=== PATIENT | female | born 1980 | race Caucasian/White ===

== ENCOUNTER → 2019-04-10 15:35 | Outpatient (REF) | payer OTHER, SELFPAY | LOC: ANHLAB 15:35 | PROVIDERS: PCP Family Medicine; Visit Provider Nurse Practitioner | DX: L81.4 Other melanin hyperpigmentation (principal) | CPT/HCPCS: 88305 ==

== ENCOUNTER 2020-12-10 13:14 | Outpatient (CLI) | payer OTHER, SELFPAY ==
--- NOTE | ~2020-12-10 | MMUS_ITS ---
EXAMINATION: MM diagnostic hazel BI w nika, US breast BI complete HISTORY: Bilateral breast pain TECHNIQUE: ML, MLO and craniocaudal 3-D tomosynthesis images of both breasts were performed and synth etic 2-D images were generated. CAD analysis was submitted and interpreted. High resolution bilateral complete breast ultrasound including all 4 quadrants and subareolar areas was performed. COMPARISON: None BREAST PARENCHYMAL COMPOSITION: There are scattered areas of fibroglandular density. FINDINGS: MAMMOGRAPHIC FINDINGS: No suspicious mass or architectural distortion, malignant calcification, skin thickening or retractio n is detected. ULTRASOUND: No suspicious mass or shadowing or other significant sonographic abnormality in either breast is dete cted. IMPRESSION: 1. No mammographic evidence of malignancy 2. Routine mammographic screening is recommended BI-RADS Category 1: Negative Reviewed, dictated and finalized at location A. IMPRESSION: 1. No mammographic evidence of malignancy 2. Routine mammographic screening is recommended BI-RADS Category 1: Negative
== END 2020-12-10 13:15 | disposition home or self-care (01) ==
PROVIDERS: PCP Family Medicine; Visit Provider Physician Assistant
DX: N64.4 Mastodynia (principal)
CPT/HCPCS: 76641; 77062; 77066; G0279

== ENCOUNTER 2022-06-10 08:12 | Outpatient (CLI) | payer OTHER, SELFPAY ==
--- NOTE | ~2022-06-10 | MM_ITS ---
EXAMINATION: MM screening hazel BI w nika HISTORY: Screening mammogram TECHNIQUE: Craniocaudal and mediolateral oblique 3-D tomosynthesis images were obtained and synthetic 2-D images were generated. CAD analysis was submitted and interpreted. COMPARISON: 12/10/2020 bilateral diagnostic mammography and bilateral complete breast ultrasound exam ination BREAST PARENCHYMAL COMPOSITION: There are scattered areas of fibroglandular density. FINDINGS: There is no evidence of suspicious mass, calcification, or architectural distortion to sugg est malignancy in either breast. There has been no suspicious interval change. IMPRESSION: 1. No mammographic evidence of malignancy. 2. Recommend routine screening mammography in one year. BI-RADS Category 1: Negative Reviewed, dictated and finalized at location A.
== END 2022-06-10 08:13 | disposition home or self-care (01) ==
PROVIDERS: PCP Physician Assistant; Visit Provider Student in an Organized Health Care Education/Training Program
DX: Z12.31 Encounter for screening mammogram for malignant neoplasm of breast (principal)
CPT/HCPCS: 77063; 77067

== ENCOUNTER 2022-08-05 08:57 | Outpatient (CLI) | payer OTHER, SELFPAY | END 2022-08-05 08:58 | disposition home or self-care (01) | LOC: ANHAUDIO 08:58 | PROVIDERS: PCP Physician Assistant; Visit Provider Otolaryngology | DX: H90.3 Sensorineural hearing loss, bilateral (principal) | CPT/HCPCS: 92557; 92567 ==

== ENCOUNTER 2023-02-01 12:47 | Outpatient (CLI) | payer OTHER, SELFPAY ==
--- NOTE | ~2023-02-01 | CT_ITS ---
EXAMINATION: CT sinus wo con DATE: 02/01/2023 13:01 INDICATION: Chronic sinusitis TECHNIQUE: Computed tomography (CT) of the paranasal sinuses was performed without intravenous contra st. The dose-length product was 397.93 mGy-cm. Automated exposure control and iterative reconstructio n technique were employed. COMPARISON: None FINDINGS: There is moderate mucosal thickening of the right maxillary sinus. There is mild mucosal th ickening of the left maxillary sinus. No air-fluid levels. No significant mucoperiosteal reaction. Th ere is occlusion of the right ostiomeatal unit. Left ostiomeatal unit is patent. Leftward nasal septa l deviation. Mastoids are pneumatized. IMPRESSION: 1. Moderate maxillary sinusitis, likely chronic. Reviewed, dictated and finalized at location A. FEEDER
== END 2023-02-01 12:48 ==
PROVIDERS: PCP Physician Assistant; Visit Provider Otolaryngology
DX: J01.00 Acute maxillary sinusitis, unspecified (principal)
CPT/HCPCS: 70486

== ENCOUNTER 2023-04-06 00:29 | Day surgery (SDC) | payer OTHER, SELFPAY ==
[2023-03-26 14:25] VITALS: BMI 28.6
--- NOTE | 2023-03-26 14:29 | PC.NURSE ---
Report to the Outpatient Waiting Room, entrance under the green pavilion located off [facility], at time 1100 on date 04/06/23. Planned Procedure Time: 1300. Time changes happen often and if your time is changed the preop area will call you the afternoon before. - You and your visitor will be asked to self-screen and do not enter if you have any COVID symptoms. - A mask is optional within the hospital at this time. Patients may have clear liquids (water, carbonated beverages, clear teas, apple juice) until 3 hours prior to surgery with a maximum of 20 ounces. - No food from midnight until time of surgery Take the following medications with a SIP of water the morning of surgery: BUPROPION, VRAYLAR, CLONAZEPAM, VALACYCLOVIR DO NOT STOP ANY OF YOUR OTHER PRESCRIPTION MEDICATIONS PRIOR TO SURGERY ?EXCEPT THE FOLLOWING Medications to discontinue per physician: N/A Date to take last dose: N/A Please no make-up, nail azeri, hairspray, perfume, deodorant, or body powder the day of surgery. No jewelry (including any body piercings) or valuables the day of surgery, leave them at home. Please take a shower or bath the night before, or the morning of, surgery with an antibacterial soap. Wear comfortable, loose fitting clothing. - Jewelry must be removed prior to entering the operating room. Rings and piercings that are not removed may be cut off. - The hospital will not accept responsibility for valuables. - Please leave all valuables, including medications, at home the day of surgery. If you are going home after surgery, a licensed local company hazmat driver must drive you home. - NO public transportation without another adult if you receive anesthesia. - We recommend that an adult stay with you for 24 hours following discharge. - We also recommend that you do not drive, make important decision, drink alcoholic beverages, or take any drugs that were not prescribed by your health care provider for at least 24 hours after your discharge time. Follow any additional instructions given to you from your surgeon. If you or anyone in your household have experienced Covid symptoms in the past week, please notify your surgeon or the nurse liaison at the phone number below for possible testing. Telephone instructions given to PT - DAVID WELLS and asked if any additional questions and then verbalized understanding. Patient advised to call surgeon office or pre surgery nurse liaison [phone] if any additional questions.
--- NOTE | 2023-04-04 16:07 | PM.IMHP ---
H&P: HPI History of Present Illness Date/Time: 04/04/23 16:07 Chief Complaint: Chronic sinusitis nasal obstruction nasal congestion septal deviation turbinate hypertrophy Narrative: planned procedure Review of Systems Review of Systems: All systems reviewed & are unremarkable except as noted in HPI and below PMFSH Past Medical History Medical History Anxiety (11/22/17) Depression Screening for breast cancer Surgical History Surgical History H/O LEEP (02/16/00) History of rhinoplasty 2006 Family History Family History Grandparent Diabetes mellitus Hypertension Carcinoma of colon Family history of coronary artery disease Dementia paternal grandfather Mother Family history of hypercholesterolemia Social History Social History (Updated 01/27/23 @ 13:03 by Kristal Harris CMA) Smoking status: Never smoker Second hand tobacco smoke exposure: No Alcohol intake: never Substance use: never Substance use type: does not use Lack of Transportation: No Lack of Food: Never True Current Housing: I Have Housing Concerned About Future Housing: No Difficulty Paying Gas/Electric Bills: No Difficulty Paying for Meds: No Currently Unemployed: No Education: High School Diploma/GED Difficulty w/ Childcare or Family Care: No Living arrangements: with family Additional living arrangements comments: and children Occupation/Education: occupation Gender identity (if verbalized by the patient): Female Sexual Orientation (if Verbalized by the Patient): Straight or Heterosexual Spiritual care concerns: No Meds Home Medications and Allergies Home Medications Medication Instructions Recorded Confirmed Type clonazepam 0.5 mg tablet 0.5 mg PO TID #90 tabs 06/01/19 03/26/23 Rx valacyclovir 500 mg tablet 500 mg PO DAILY #90 tabs 02/03/21 03/26/23 Rx bupropion HCl 150 mg 24 hr tablet, 300 mg PO QAM 06/04/22 03/26/23 History extended release loratadine 10 mg tablet (Claritin) 10 mg PO DAILY 01/27/23 03/26/23 History cariprazine 1.5 mg capsule 1.5 mg PO DAILY 03/26/23 03/26/23 History (Vraylar) Allergies Allergy/AdvReac Type Severity Reaction Status Date / Time cefaclor Allergy Unknown Unknown Verified 03/26/23 14:22 sulfamethizole Allergy Unknown Skin Verified 03/26/23 14:22 irritation trimethoprim Allergy Unknown Skin Verified 03/26/23 14:22 irritation Exam Narrative: septal deviation turbinate hypertrophy chronic appearing sinuses Assessment and Plan Assessment and plan (1) Facial pain: Code(s): R51.9 - Headache, unspecified Status: Acute Assessment and Plan: plan or image guided endoscopic bilateral maxillary antrostomies endoscopic assisted septoplasty inferior turbinate reduction bilaterally with outfracture. Risks discussed including bleeding infection need for routine follow-up need for time off work time off school inherent risk of narcotic use change in vision CSF leak brain brain damage total blindness blindness. Damage to any structure of the clavicle by myself damage to any structure during the induction and maintenance of anesthesia. (2) Chronic sinusitis: Code(s): J32.9 - Chronic sinusitis, unspecified Status: Acute (3) Nasal septal deviation: Code(s): J34.2 - Deviated nasal septum Status: Acute (4) Hypertrophy of both inferior nasal turbinates: Code(s): J34.3 - Hypertrophy of nasal turbinates Status: Acute
[2023-04-06] VITALS (8 sets, daily range): BP systolic 112–147; BP diastolic 62–87; PULSE 79–90; RESP 14–20; TEMP 36.3–36.7; O2SAT 98–100
--- NOTE | 2023-04-06 07:19 | WPDHPUPDATE1 ---
History and Physical Update Update Date/Time: 04/06/23 07:19 History and Physical has been reviewed, including an updated exam of the patient. There are NO changes in the patient's condition. Risks, benefits, and alternatives have been discussed and questions answered. Patient agrees to proceed with procedure.
[2023-04-06] MEDS: ACETAMINOPHEN 500 MG TABLET 1000 MG PO (11:23)
[2023-04-06] MEDS: LACTATED RINGERS 1,000 ML 30 ML IV CONT ×2 (11:25→17:17)
--- NOTE | 2023-04-06 13:19 | WPDANESEPPF ---
Anes - Initial Pre Proc Eval Procedure: Operation Date: 04/06/23 13:00 Proposed Procedures p Image Guided Bilateral Maxillary Antrostomy, Bilateral Inferior Turbinate Reduction with Outfracture - Mathieu Torres MD s Endoscopic Septoplasty - Mathieu Torres MD Date/Time: 04/06/23 13:19 Surgeon: Mathieu Torres MD Pre Op Diagnosis: Chr Sinusitis, Septal Deviation Patient Data Age: 43 Gender: F Height: 1.65 m Weight: 85 kg Last Vital Signs Temp 36.7 C 04/06/23 11:09 Pulse 79 04/06/23 11:09 Resp 18 04/06/23 11:09 BP 142/84 H 04/06/23 11:09 Pulse Ox 100 04/06/23 11:09 O2 Del Method Room Air 04/06/23 11:09 Allergies Allergy/AdvReac Type Severity Reaction Status Date / Time cefaclor Allergy Unknown Unknown Verified 04/06/23 11:33 sulfamethizole Allergy Unknown Skin Verified 04/06/23 11:33 irritation trimethoprim Allergy Unknown Skin Verified 04/06/23 11:33 irritation Home Medications Medication Instructions Recorded Confirmed Type clonazepam 0.5 mg tablet 0.5 mg PO TID #90 tabs 06/01/19 04/06/23 Rx valacyclovir 500 mg tablet 500 mg PO DAILY #90 tabs 02/03/21 04/06/23 Rx bupropion HCl 150 mg 24 hr tablet, 300 mg PO QAM 06/04/22 04/06/23 History extended release loratadine 10 mg tablet (Claritin) 10 mg PO DAILY 01/27/23 04/06/23 History cariprazine 1.5 mg capsule 1.5 mg PO DAILY 03/26/23 04/06/23 History (Vraylar) Patient hx anesthesia problems: none Family hx anesthesia problems: none Results Review: All pre-operative results and documents have been reviewed as part of the pre-operative evaluation. [facility] Past Medical History Medical History Anxiety (11/22/17) Depression Screening for breast cancer Surgical History Surgical History H/O LEEP (02/16/00) History of rhinoplasty 2007 Family History Family History Grandparent Diabetes mellitus Hypertension Carcinoma of colon Family history of coronary artery disease Dementia paternal grandfather Mother Family history of hypercholesterolemia Social History Social History Smoking status: Never smoker Second hand tobacco smoke exposure: No Alcohol intake: never Substance use: never Substance use type: does not use Lack of Transportation: No Lack of Food: Never True Current Housing: I Have Housing Concerned About Future Housing: No Difficulty Paying Gas/Electric Bills: No Difficulty Paying for Meds: No Currently Unemployed: No Education: High School Diploma/GED Difficulty w/ Childcare or Family Care: No Living arrangements: with family Additional living arrangements comments: and children Occupation/Education: occupation Gender identity (if verbalized by the patient): Female Sexual Orientation (if Verbalized by the Patient): Straight or Heterosexual Spiritual care concerns: No Anes - Eval Final PreProcedure Day of Procedure 04/06/23 13:19 Patient weight: obese Heart: regular rate and rhythm Lungs: clear to auscultation Airway: Mallampati scale class II Neurological: alert and oriented Last oral intake: >/= 8 hours ASA classification: II Emergent: no Anesthetic plan: proceed Anesthesia type and monitoring: general ETT and standard monitoring Results Review: All pre-operative results and documents have been reviewed as part of the pre-operative evaluation. Informed Consent: The patient's anesthetic plan and its attendant risks and benefits were discussed with the patient/family/POA. Questions were solicited and answers provided to the satisfaction of the patient/family/POA.
[2023-04-06] MEDS: CLINDAMYCIN 900 MG/D5W 50 ML 900 MG/50 ML PIGGYBACK 50 MG IVPB (14:28)
[2023-04-06] MEDS: LIDO 1%/EPINEPHRINE 1:100,000 20 ML VIAL 50 ML INFILTRATE (14:43)
[2023-04-06] MEDS: OXYMETAZOLINE HCL 0.05% NAS 15 ML BTL (*BKC) 1 SPRAY NASAL (14:43)
[2023-04-06] MEDS: MUPIROCIN 2% OINT 22 GM TUBE 1 APPLIC EACH NARE (14:44)
[2023-04-06] MEDS: HEMOSTATIC MATRIX (SURGIFLO with THROMBIN) KIT 1 KIT XX (16:12)
--- NOTE | 2023-04-06 17:35 | P.OP_ITS ---
Procedure Note - Detailed Date of Procedure 04/06/23 Pre-op Diagnosis Chr Sinusitis, Septal Deviation, turbinate hypertrophy, nasal obstruction Post-op Diagnosis Same Procedure Performed endoscopic assisted septoplasty inferior turbinate reduction with outfracture bilateral image guided maxillary antrostomies Surgeon Mathieu Torres MD Anesthesia General Indications see above Findings polypoid edema right max left looked okay a no T-cells really hard to get to a previous history of septoplasty challenging to redo the portion I needed to do but it looked good afterwards. Hypertrophied turbinates well reduced Description of Procedure patient identified consent verified preop. Patient brought to the operating. Time-out performed. General anesthesia induced endotracheal tube secured. Patient prepped draped position procedure confirmed 2nd time-out performed. Image guidance initiated confirmed. Afrin-soaked pledgets placed fronts then removed. Total 12 cc 1% lidocaine 1 100 parts epinephrine injected in the bilateral nasal septum inferior turbinates. [place] incision made left-sided nasal septal flap elevated was challenging given previous history of septoplasty right side elevated deviated septum removed with [place] forceps Henry forceps osteotome. I removed portions superiorly which was blocking the left middle meatus as well as the inferior portion blocking the left nasal passage. The incision closed 3 interrupted sorry for ruptured 5 0 fast gut sutures. Turbinates reduced submucosal plane with Workpop debrider 2.5 mm blade FloSeal placed anteriorly then outfractured. Maxillary antrostomies were performed with image guidance straight through cut double ball tip probe backbiter microdebrider as well as rad 40 and 70 degree endoscope to get the NO T cells opened. Great care was taken to not injure the orbit as well as to ensure that the natural os connected to the surgical os. Welch splints were then placed sutured anteriorly using a 3-0 mattress nylon suture ensured to be lateral to the middle turbinates. Total blood loss 35 cc I performed all dictated portions procedure no complications care the patient back to Anesthesiology. Patient taken to PACU. Estimated Blood Loss 35 Drains No Packing No Pathology None sent Complications No immediate complications Condition Stable Disposition PACU [facility] Billing Surgery - Charge Forward: Surgery Billing
--- NOTE | 2023-04-06 17:41 | SUR.PHASEI ---
1740: Simple mask removed.
[2023-04-06] MEDS: oxyCODONE HCL (*CRX) 5 MG TAB IR PO (18:12)
== END 2023-04-06 18:47 | disposition home or self-care (01) ==
PROVIDERS: PCP Physician Assistant; Visit Provider Otolaryngology
PROC: (CPT 31256; principal; 2023-04-06 13:00)
PROC: (CPT 30520; 2023-04-06 13:00)
DX: J32.9 Chronic sinusitis, unspecified (principal); J34.3 Hypertrophy of nasal turbinates; J34.2 Deviated nasal septum; J34.89 Other specified disorders of nose and nasal sinuses; F41.9 Anxiety disorder, unspecified; F32.A Depression, unspecified; E66.9 Obesity, unspecified; Z68.31 Body mass index [BMI] 31.0-31.9, adult
CPT/HCPCS: 31256; 61782; 30520; 30140; A9270; J2250; J3010; J7050; J7120

== ENCOUNTER 2023-08-04 12:45 | Outpatient (CLI) | payer BC, SELFPAY ==
--- NOTE | ~2023-08-04 | MM_ITS ---
EXAMINATION: MM screening hazel BI w nika HISTORY: Screening TECHNIQUE: Craniocaudal and mediolateral oblique 3-D tomosynthesis images were obtained and synthetic 2-D images were generated. CAD analysis was submitted and interpreted. COMPARISON: Comparison to multiple prior studies sequentially, with oldest reviewed study dated 11/16. BREAST PARENCHYMAL COMPOSITION: Not dense: There are scattered areas of fibroglandular density. FINDINGS: There is no evidence of suspicious mass, calcification, or architectural distortion to sugg est malignancy in either breast. There has been no suspicious interval change. IMPRESSION: 1. No mammographic evidence of malignancy. 2. Recommend routine screening mammography in one year. BI-RADS Category 1: Negative Reviewed, dictated and finalized at location B.
== END 2023-08-04 12:46 | disposition home or self-care (01) ==
LOC: ANHIMG 12:46
PROVIDERS: PCP Physician Assistant; Visit Provider Student in an Organized Health Care Education/Training Program
DX: Z12.31 Encounter for screening mammogram for malignant neoplasm of breast (principal)
CPT/HCPCS: 77063; 77067

== ENCOUNTER 2024-05-11 13:42 | Outpatient (CLI) | payer BC, SELFPAY ==
--- NOTE | ~2024-05-11 | MR_ITS ---
EXAMINATION: MR pituitary wo/w con DATE: 05/11/2024 14:30 INDICATION: Hyperprolactinemia. TECHNIQUE: Magnetic resonance imaging (MRI) of the brain and brainstem was performed without and with 13 mL ProHance intravenous contrast. COMPARISON: None. FINDINGS: The pituitary is normal in size with height of 4 mm. There is no intracranial hemorrhage, a cute infarction, or abnormal intracranial mass lesion. The ventricles are normal in size. There is mu cosal thickening in the paranasal sinuses. The orbits are normal. There is a trace left mastoid effus ion. IMPRESSION: 1. Normal brain. Normal pituitary. Reviewed, dictated and finalized at location A.
== END 2024-05-11 13:43 | disposition home or self-care (01) ==
PROVIDERS: PCP Physician Assistant; Visit Provider Physician Assistant
DX: R89.1 Abnormal level of hormones in specimens from other organs, systems and tissues (principal)
CPT/HCPCS: 70553; A9579

== ENCOUNTER 2024-06-02 11:21 | Outpatient (CLI) | payer BC, SELFPAY ==
--- OUTSIDE RECORDS SUMMARY | 2024-06-02 11:32 | XMS_ITS | Clinical Summary ---
Author Organization [facility] Address [address] [address] [place] [id number] Phone Care Team Providers Care Advance Scout Name Role Phone Unavailable Primary Care Provider Unavailabl e Medications valACYclovir (VALTREX) 500 mg tablet TAKE ONE TABLET BY MOUTH ONCE DAILY FOR SUPPRESSION. CAN TAKE UP TO 4 TABLETS DURING ACUTE EXACERBATION 90 Tablet 3 3 11:11 AM CDT 12/20/19 22 Active methylPREDNIS olone (MEDROL DOSPACK) 4 mg Tablets, Dose Pack TAKE BY MOUTH DIRECTED ON PACKAGE. TAKE WITH PEPCID. 21 Each 3 3 10:17 AM CDT 02/05/20 22 Active semaglutide, weight loss, (Wegovy) 0.25 mg/0.5 mL Pen Injector Inject 0.25 mg every week by subcutaneous route as directed. 2 mL 03/04/19 23 Active phentermine (ADIPEX P) 37.5 mg tablet Take 1 Tablet (37.5 mg) by mouth daily. 30 Tablet 1 3 12:56 PM CDT 05/22/19 23 Active tretinoin (RETIN-A) 0.1 % Cream APPLY TO FACE AT BEDTIME. 45 Gram 3 3 12:56 PM CDT 06/09/19 23 Active mupirocin (BACTROBAN) 2% Ointment APPLY TOPICALLY TWICE DAILY DIRECTED 22 Gram 3 10:52 AM CDT 07/07/19 23 Active buPROPion HCL (WELLBUTRIN XL) 300 mg Extended Release 24 hour tablet TAKE ONE TABLET BY MOUTH ONCE DAILY 90 Tablet 3 4 11:44 AM CDT 07/10/19 23 Active azithromycin (Zithromax Z-Willy) 250 mg tablet TAKE 2 TABLETS (500 MG) BY MOUTH ON DAY 1, THEN 1 TABLET (250 MG) BY MOUTH ONCE DAILY ON DAYS 2-5 6 Tablet 3 3:07 PM CDT 07/17/19 23 Active benzonatate (TESSALON) 200 mg capsule Take 1 Capsule (200 mg) by mouth 3 times daily. 21 Capsule 3 3:22 PM CDT 10/21/19 23 Active codeine-guaiF ENesin (ROBITUSSIN-A C) 10-100 mg/5 mL Liquid TAKE 10 ML BY MOUTH AT BEDTIME NEEDED. 70 mL 3 3:22 PM CDT 10/21/19 23 Active codeine-guaiF ENesin (guaiFENesin AC) 10-100 mg/5 mL Liquid Take 10 mL by mouth every 6 hours as needed FOR COUGH. 120 mL 3 12:40 PM CDT 12/06/19 23 Active albuterol sulfate HFA 90 mcg/actuation aerosol inhaler Inhale 2 puffs BY MOUTH Every 4 hours as needed 8.5 Gram 3 12:40 PM CDT 12/06/19 23 Active benzonatate (Tessalon Perles) 100 mg capsule Take 1 Capsule (100 mg) by mouth every 8 hours as needed. 30 Capsule 3 12:40 PM CDT 12/06/19 23 Active methylPREDNIS olone (Medrol, Willy,) 4 mg Tablets, Dose Pack TAKE DIRECTED 21 Tablet 3 11:50 AM WELL TESTING OPERATOR 01/06/20 23 Active fluconazole (DIFLUCAN) 150 mg tablet TAKE ONE TABLET BY MOUTH A SINGLE DOSE THEN REPEAT IN 72 HOURS. 2 Tablet 3 12:38 PM WELL TESTING OPERATOR 01/09/20 23 Active azelastine (ASTELIN) 137 mcg/actuation nasal spray Administer 1-2 Sprays in each nostril every 12 hours. 30 mL 3 6:41 PM WELL TESTING OPERATOR 01/28/20 23 Active clonazePAM (KlonoPIN) 0.5 mg Tablet Take 1 Tablet (0.5 mg) by mouth 3 times daily as needed. 90 Tablet 1 4 12:45 PM WELL TESTING OPERATOR 02/02/20 23 Active predniSONE (DELTASONE) 5 mg tablet Take 1 Tablet (5 mg) by mouth daily in the morning. 7 Tablet 4 7:48 PM WELL TESTING OPERATOR 04/06/19 24 Active benzonatate (TESSALON) 100 mg capsule Take 1 Capsule (100 mg) by mouth 3 times daily. 10 Capsule 4 11:29 AM WELL TESTING OPERATOR 04/08/19 24 Active phentermine (ADIPEX P) 37.5 mg tablet Take 1 Tablet (37.5 mg) by mouth daily in the morning. 30 Tablet 1 4 12:32 PM CDT 04/14/19 24 Active tirzepatide, weight loss, (Zepbound) 5 mg/0.5 mL Pen Injector Inject 5 mg by subcutaneous injection every 7 days. 2 mL 2 5 12:03 PM WELL TESTING OPERATOR 08/20/19 24 Active clonazePAM (KlonoPIN) 0.5 mg Tablet Take 1 Tablet (0.5 mg) by mouth 3 times daily as needed. 90 Tablet 3 4 3:23 PM WELL TESTING OPERATOR 09/24/19 24 Active tirzepatide, weight loss, (Zepbound) 7.5 mg/0.5 mL Pen Injector Inject 7.5 mg every week by subcutaneous route as directed. 2 mL 1 4 11:14 AM WELL TESTING OPERATOR 11/25/19 24 Active ofloxacin (OCUFLOX) 0.3 % solution INSTILL 1 DROP INTO AFFECTED EYE(S) BY OPHTHALMIC ROUTE 4 TIMES PER DAY x 5-7 days 10 mL 4 11:50 AM WELL TESTING OPERATOR 01/27/20 24 Active clonazePAM (KlonoPIN) 0.5 mg Tablet Take 1 Tablet (0.5 mg) by mouth 3 times daily as needed. 90 Tablet 3 5 1:20 PM CDT 02/27/19 25 Active valACYclovir (VALTREX) 500 mg tablet Take 1-2 Tablets (500-1,000 mg) by mouth 2 times daily as needed as directed. 90 Tablet 2 5 12:03 PM WELL TESTING OPERATOR 02/27/19 25 Active buPROPion HCL (WELLBUTRIN XL) 300 mg Extended Release 24 hour tablet Take 1 Tablet (300 mg) by mouth daily. 90 Tablet 3 5 1:20 PM CDT 03/13/20 25 Active tretinoin (RETIN-A) 0.1 % Cream Apply a small amount to affected area every night 45 Gram 7 05/16/19 25 Active tirzepatide, weight loss, (Zepbound) 10 mg/0.5 mL Pen Injector Inject 10 mg by subcutaneous injection every 7 days. 2 mL 5 10:33 AM CDT 05/17/19 25 Active cariprazine (Vraylar) 1.5 mg Capsule capsule Take 1 Capsule (1.5 mg) by mouth daily. 30 Capsule 5 06/03/19 25 Active cariprazine (Vraylar) 1.5 mg Capsule capsule Take 1 Capsule (1.5 mg) by mouth daily. 30 Capsule 5 5 1:20 PM CDT 11/14/19 24 025 Discontinued(R eorder) tirzepatide, weight loss, (Zepbound) 5 mg/0.5 mL Pen Injector INJECT 0.5 ML EVERY WEEK UNDER THE SKIN DIRECTED 2 mL 1 4 11:50 AM WELL TESTING OPERATOR 01/26/20 24 025 Discontinued tirzepatide, weight loss, (Zepbound) 10 mg/0.5 mL Pen Injector Inject 10 mg by subcutaneous injection every 7 days. 2 mL 1 5 1:20 PM CDT 03/30/19 25 025 Discontinued(R eorder) Encounters Date Type Department Care Team Description 05/16/2024 External Device Data [facility]STRACTION Provider, Abstract 05/16/2024 External Device Data [facility]STRA[facility] Provider, Abstract from Last 3 Months Social History Tobacco Use Types Packs/Day Years Used Date Smoking Tobacco: Never Assessed Comments Unknown Sex and Gender Information Value Date Recorded Sex Assigned at Not on file Legal Sex Female 3:27 PM CDT Gender Identity Not on file Sexual Orientation Not on file Plan of Treatment Health Maintenance Due Date Last Done Comments DTAP/TDAP/TD VACCINES (1 - Tdap) 2000 HEPATITIS B VACCINES (1 of 3 - 19+ 3-dose series) 2000 HPV/Cotest (21-29) 2002 CERVICAL CANCER SCREENING 2011 HPV/Cotest (30-65) 2011 PAP SMEAR 2011 BREAST CANCER SCREENING 2021 INFLUENZA VACCINE (#1) 2023 HPV VACCINES Aged Out No longer eligi ble based on patient's age to complete this topic Insurance [employer] (INTERNAL) [facility] [employer] Commercial RX PHARMACY [facility] [place] [facility]
--- OUTSIDE RECORDS SUMMARY | 2024-06-02 11:32 | XMS_ITS | Data Portability ---
Author Organization [facility] Address [address] [place] [address] Care Team Providers Care Teacher Vocational Training Name Role Phone ALAYNA JAIMES Primary Care Provider Assessment Encounter Date Assessment Date Assessment LastModified by Organization Details LastModified Time 10/04/2023 10/04/2023 Mammogram is up-to-date Well-woman exam up-to-date Eye and dental exams up-to-date Labs up-to-date Not available 10/17/2023 01:27:20 03/30/2024 03/30/2024 Mammogram up-to-date August 04, 2023 Not available 04/16/2024 14:17:12 Plan of Treatment Reminders Order Date Submit Date Provider Last Modified By Organization Details Last Modified Time Details Appointments ANY 15 2024 01:00P PATRICIO Peña Not available Not available Not available Lab prolactin , serum 2024 025 [facility], [address] [place] [address], [address], 04/18/2024 15:08:07 TSH + free T4, serum 2024 025 [facility], [address] [place] [address], [place], [address], 04/18/2024 15:08:00 CMP, serum or plasma 2024 025 [facility], [address] [place] [address] 2, [place], [address], 04/18/2024 15:08:03 CBC w/ auto diff 2024 025 [facility], [address] [facility], [facility], [place], [address], 04/18/2024 15:08:08 vitamin B12 + folate, serum or blood 2024 025 [facility], [address] [facility], [facility], [place], [address], 04/18/2024 15:08:05 lipid panel, serum 2024 025 [facility], [address] [facility], [facility], [place], [address], 04/18/2024 15:08:02 HbA1c (hemoglob in A1c), blood 2024 025 [facility], [address] [facility], [facility], [place], [address], 04/18/2024 15:08:06 TSH + free T4, serum 2023 024 [facility], [address] [facility], [facility], [place], [address], 05/04/2023 12:13:55 lipid panel, serum 2023 024 [facility], [facility], [facility], [place], [address], 05/04/2023 12:13:56 CMP, serum or plasma 2023 024 [facility], [address] [facility], [facility], [place], [address], 05/04/2023 12:13:56 CBC w/ auto diff 2023 024 [facility], [address] [facility], [facility], [place], [address], 05/04/2023 12:13:58 vitamin B12 + folate, serum or blood 2023 024 [facility], [address] [facility], [place], [address], 05/04/2023 12:13:57 HbA1c (hemoglob in A1c), blood 2023 024 [facility], [address] [facility], [place], [address], 05/04/2023 12:13:57 Referral podiatris t referral 2023 024 tra Moreno Jr DPM, [address], [address], [place], [address], 03/30/2024 16:49:04 Procedures None recorded. Surgeries None recorded. Imaging None recorded. Medication Orders Zepbound 10 mg/0.5 mL subcutane ous pen injector 2024 025 [facility], [address], [place], [place], [id number], 03/30/2024 14:26:04 clonazepa m 0.5 mg tablet 2023 024 [facility], [address], [place], [place], [id number], 04/14/2023 14:38:56 bupropion HCl XL 300 mg 24 hr tablet, extended release 2023 024 [facility], [address], [place], [place], [id number], 04/14/2023 14:38:50 phentermi ne 37.5 mg tablet [address] [facility], [address], [place], [place], [id number], 10/17/2023 01:26:02 Patient TargetsNo targets recorded. 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 Physician: Alayna Jaimes, Internal Medicine, Encounter Date: 04/14/2023 Results Created Date Observation Date Name Description Value Unit Range Abnormal Flag Note LastModifiedBy Organization Detail LastModifiedTime 05/03/1905/04/2023 TSH+F REE T4 TSH 1.830 uIU/m L 0.450- 4.500 Not Available [facility] ([facility]) [address] [place], [address], 05/04/2023 12:13:55 05/03/1905/04/2023 TSH+F REE T4 T4,free(dire ct) 0.87 NG/dL 0.82-1 .77 Not Available [facility] ([facility]) [address] [place], [address], 05/04/2023 12:13:55 05/03/19 24 05/04/2023 LIPID PANEL cholesterol, total 166 mg/dL 100-19 9 Not Available [facility] ([facility]) [address] [place], [address], 05/04/2023 12:13:55 05/03/19 24 05/04/2023 LIPID PANEL triglyceride s 74 mg/dL 0-149 Not Available [facility] ([facility]) [address] [place], [address], 05/04/2023 12:13:55 05/03/19 24 05/04/2023 LIPID PANEL HDL cholesterol 54 mg/dL >39 Not Available [facility] ([facility]) [address] [place], [address], 05/04/2023 12:13:55 05/03/19 24 05/04/2023 LIPID PANEL VLDL cholesterol noemí 14 mg/dL 5-40 Not Available [facility] ([facility]) [address] [place], [address], 05/04/2023 12:13:55 05/03/19 24 05/04/2023 LIPID PANEL LDL chol calc ([facility]) 98 mg/dL 0-99 Not Available [facility]) [address] [place], [address], 05/04/2023 12:13:55 05/03/19 24 05/04/2023 COMP. METAB OLIC PANEL (14) glucose 95 mg/dL 70-99 Not Available [facility] ([facility]) [address] [place], [address], 05/04/2023 12:13:56 05/03/19 24 05/04/2023 COMP. METAB OLIC PANEL (14) BUN 11 mg/dL 6-24 Not Available [facility] ([facility]) [address] [place], [address], 05/04/2023 12:13:56 05/03/19 24 05/04/2023 COMP. METAB OLIC PANEL (14) creatinine 0.93 mg/dL 0.57-1 .00 Not Available [facility] ([facility]) [address] [place], [address], 05/04/2023 12:13:56 05/03/19 24 05/04/2023 COMP. METAB OLIC PANEL (14) eGFR 79 mL/mi n/1.7 3 >59 Not Available [facility] ([facility]) [address] [place], [address], 05/04/2023 12:13:56 05/03/19 24 05/04/2023 COMP. METAB OLIC PANEL (14) BUN/creatini ne ratio 12 9-23 Not Available [facility] ([facility]) [address] [facility] [place], [address], 05/04/2023 12:13:56 05/03/19 24 05/04/2023 COMP. METAB OLIC PANEL (14) sodium 139 mmol/ L 134-14 4 Not Available [facility] ([facility]) [address] [facility] [place], [address], 05/04/2023 12:13:56 05/03/19 24 05/04/2023 COMP. METAB OLIC PANEL (14) potassium 4.2 mmol/ L 3.5-5. 2 Not Available [facility] ([facility]) [address] [facility] [place], [address], 05/04/2023 12:13:56 05/03/19 24 05/04/2023 COMP. METAB OLIC PANEL (14) chloride 103 mmol/ L 96-106 Not Available [facility] ([facility]) [address] [facility] [place], [address], 05/04/2023 12:13:56 05/03/19 24 05/04/2023 COMP. METAB OLIC PANEL (14) carbon dioxide, total 24 mmol/ L 20-29 Not Available [facility] ([facility]) [address] [facility] [place], [address], 05/04/2023 12:13:56 05/03/19 24 05/04/2023 COMP. METAB OLIC PANEL (14) calcium 9.1 mg/dL 8.7-10 .2 Not Available [facility] ([facility]) [address] [facility] [place], [address], 05/04/2023 12:13:56 05/03/19 24 05/04/2023 COMP. METAB OLIC PANEL (14) protein, total 6.4 g/dL 6.0-8. 5 Not Available [facility] ([facility]) [address] [place], [address], 05/04/2023 12:13:56 05/03/19 24 05/04/2023 COMP. METAB OLIC PANEL (14) albumin 4.3 g/dL 3.9-4. 9 Not Available [facility] ([facility] [address] [facility] [place], [address], 05/04/2023 12:13:56 05/03/19 24 05/04/2023 COMP. METAB OLIC PANEL (14) globulin, total 2.1 g/dL 1.5-4. 5 Not Available [facility] ([facility]) [address] [facility] [place], [address], 05/04/2023 12:13:56 05/03/19 24 05/04/2023 COMP. METAB OLIC PANEL (14) A/G ratio 2.0 1.2-2. 2 Not Available [facility] ([facility]) [address] [facility], [place], [address], 05/04/2023 12:13:56 05/03/19 24 05/04/2023 COMP. METAB OLIC PANEL (14) bilirubin, total 0.2 mg/dL 0.0-1. 2 Not Available [facility] ([facility]) [address] [facility], [place], [address], 05/04/2023 12:13:56 05/03/19 24 05/04/2023 COMP. METAB OLIC PANEL (14) alkaline phosphatase 87 IU/L 44-121 Not Available [facility] ([facility]) [address] [facility] [place], [address], 05/04/2023 12:13:56 05/03/19 24 05/04/2023 COMP. METAB OLIC PANEL (14) AST (SGOT) 12 IU/L 0-40 Not Available [facility] ([facility]) [address] [facility] [place], [address], 05/04/2023 12:13:56 05/03/19 24 05/04/2023 COMP. METAB OLIC PANEL (14) ALT (SGPT) 10 IU/L 0-32 Not Available [facility] ([facility]) [address] [facility], [place], [address], 05/04/2023 12:13:56 05/03/19 24 05/04/2023 VITAM IN B12 AND FOLAT E vitamin B12 388 pg/mL 232-12 45 Not Available [facility] ([facility]) [address] [facility], [place], [address], 05/04/2023 12:13:57 05/03/19 24 05/04/2023 VITAM IN B12 AND FOLAT E folate (folic acid), serum 13.9 NG/mL >3.0 A serum folat e lorna ntrat ion of less than 3.1 ng/mL is consi dered to repre sent clini noemí defic iency . Not Available [facility] ([facility]) [address] [facility], [place], [address], 05/04/2023 12:13:57 05/03/1905/04/2023 HEMOG LOBIN A1C hemoglobin A1C 5.7 % 4.8-5. 6 above high normal Predi abete s: 5.7 - 6.4 Diabe suzan: >6.4 Glyce elisa contr ol for adult s with diabe suzan: <7.0 Not Available [facility] ([facility]) [address] [facility], [place], [address], 05/04/2023 12:13:57 05/03/19 24 05/04/2023 CBC WITH DIFFE RENTI AL/PL ATELE T WBC 6.0 x10e3 /uL 3.4-10 .8 Not Available [facility] ([facility]) [address] [facility], [place], [address], 05/04/2023 12:13:58 05/03/19 24 05/04/2023 CBC WITH DIFFE RENTI AL/PL ATELE T RBC 4.41 x10e6 /uL 3.77-5 .28 Not Available [facility] ([facility]) [address] [place], [address], 05/04/2023 12:13:58 05/03/19 24 05/04/2023 CBC WITH DIFFE RENTI AL/PL ATELE T hemoglobin 11.4 g/dL 11.1-1 5.9 Not Available [facility] ([facility]) [address] [place], [address], 05/04/2023 12:13:58 05/03/19 24 05/04/2023 CBC WITH DIFFE RENTI AL/PL ATELE T hematocrit 36.4 % 34.0-4 6.6 Not Available [facility] ([facility]) [address] [place], [address], 05/04/2023 12:13:58 05/03/19 24 05/04/2023 CBC WITH DIFFE RENTI AL/PL ATELE T MCV 83 fL 79-97 Not Available [facility] ([facility]) [address] [place], [address], 05/04/2023 12:13:58 05/03/19 24 05/04/2023 CBC WITH DIFFE RENTI AL/PL ATELE T MCH 25.9 pg 26.6-3 3.0 below low normal Not Available [facility] ([facility]) [address] [place], [address], 05/04/2023 12:13:58 05/03/19 24 05/04/2023 CBC WITH DIFFE RENTI AL/PL ATELE T MCHC 31.3 g/dL 31.5-3 5.7 below low normal Not Available [facility] ([facility]) [address] [place], [address], 05/04/2023 12:13:58 05/03/19 24 05/04/2023 CBC WITH DIFFE RENTI AL/PL ATELE T RDW 13.6 % 11.7-1 5.4 Not Available [facility] ([facility]) [address] [facility], [place], [address], 05/04/2023 12:13:58 05/03/19 24 05/04/2023 CBC WITH DIFFE RENTI AL/PL ATELE T platelets 324 x10e3 /uL 150-45 0 Not Available [facility] ([facility]) [address] [facility], [place], [address], 05/04/2023 12:13:58 05/03/19 24 05/04/2023 CBC WITH DIFFE RENTI AL/PL ATELE T neutrophils 50 % notest ab. Not Available [facility] ([facility]) [address] [facility], [place], [address], 05/04/2023 12:13:58 05/03/19 24 05/04/2023 CBC WITH DIFFE RENTI AL/PL ATELE T lymphs 37 % notest ab. Not Available [facility] ([facility]) [address] [facility], [place], [address], 05/04/2023 12:13:58 05/03/19 24 05/04/2023 CBC WITH DIFFE RENTI AL/PL ATELE T monocytes 8 % notest ab. Not Available [facility] ([facility]) [address] [facility], [place], [address], 05/04/2023 12:13:58 05/03/19 24 05/04/2023 CBC WITH DIFFE RENTI AL/PL ATELE T eos 5 % notest ab. Not Available [facility] ([facility]) [address] [facility], [place], [address], 05/04/2023 12:13:58 05/03/19 24 05/04/2023 CBC WITH DIFFE RENTI AL/PL ATELE T basos 0 % notest ab. Not Available [facility] ([facility]) [address] [facility], [place], [address], 05/04/2023 12:13:58 05/03/19 24 05/04/2023 CBC WITH DIFFE RENTI AL/PL ATELE T neutrophils (absolute) 3.1 x10e3 /uL 1.4-7. 0 Not Available [facility] ([facility]) [address] [facility], [place], [address], 05/04/2023 12:13:58 05/03/19 24 05/04/2023 CBC WITH DIFFE RENTI AL/PL ATELE T lymphs (absolute) 2.2 x10e3 /uL 0.7-3. 1 Not Available [facility] ([facility]) [address] [facility], [place], [address], 05/04/2023 12:13:58 05/03/19 24 05/04/2023 CBC WITH DIFFE RENTI AL/PL ATELE T monocytes(ab solute) 0.5 x10e3 /uL 0.1-0. 9 Not Available [facility] ([facility]) [address] [facility], [place], [address], 05/04/2023 12:13:58 05/03/19 24 05/04/2023 CBC WITH DIFFE RENTI AL/PL ATELE T eos (absolute) 0.3 x10e3 /uL 0.0-0. 4 Not Available [facility] ([facility]) [address] [place], [address], 05/04/2023 12:13:58 05/03/19 24 05/04/2023 CBC WITH DIFFE RENTI AL/PL ATELE T baso (absolute) 0.0 x10e3 /uL 0.0-0. 2 Not Available [facility] ([facility]) [address] [place], [address], 05/04/2023 12:13:58 05/03/19 24 05/04/2023 CBC WITH DIFFE RENTI AL/PL ATELE T immature granulocytes 0 % notest ab. Not Available [facility] ([facility]) [address] [place], [address], 05/04/2023 12:13:58 05/03/19 24 05/04/2023 CBC WITH DIFFE RENTI AL/PL ATELE T immature grans (abs) 0.0 x10e3 /uL 0.0-0. 1 Not Available [facility] ([facility]) [address] [place], [address], 05/04/2023 12:13:58 04/12/19 25 04/13/2024 TSH+F REE T4 TSH 2.130 uIU/m L 0.450- 4.500 Not Available [facility] ([facility]) [address] [place], [address], 04/18/2024 15:08:00 04/12/19 25 04/13/2024 TSH+F REE T4 T4,free(dire ct) 1.06 NG/dL 0.82-1 .77 Not Available [facility] ([facility]) [address] [place], [address], 04/18/2024 15:08:00 04/12/19 25 04/13/2024 LIPID PANEL cholesterol, total 134 mg/dL 100-19 9 Not Available [facility] ([facility]) [address] [place], [address], 04/18/2024 15:08:02 04/12/19 25 04/13/2024 LIPID PANEL triglyceride s 44 mg/dL 0-149 Not Available [facility] ([facility]) [address] [place], [address], 04/18/2024 15:08:02 04/12/19 25 04/13/2024 LIPID PANEL HDL cholesterol 52 mg/dL >39 Not Available [facility] ([facility]) [address] [place], [address], 04/18/2024 15:08:02 04/12/19 25 04/13/2024 LIPID PANEL VLDL cholesterol noemí 10 mg/dL 5-40 Not Available [facility] ([facility]) [address] [facility], [place], [address], 04/18/2024 15:08:02 04/12/19 25 04/13/2024 LIPID PANEL LDL chol calc ([facility]) 72 mg/dL 0-99 Not Available [facility]) [address] [place], [address], 04/18/2024 15:08:02 04/12/19 25 04/13/2024 COMP. METAB OLIC PANEL (14) glucose 75 mg/dL 70-99 Not Available [facility] ([facility]) [address] [place], [address], 04/18/2024 15:08:03 04/12/19 25 04/13/2024 COMP. METAB OLIC PANEL (14) BUN 13 mg/dL 6-24 Not Available [facility] ([facility]) [address] [place], [address], 04/18/2024 15:08:03 04/12/19 25 04/13/2024 COMP. METAB OLIC PANEL (14) creatinine 0.89 mg/dL 0.57-1 .00 Not Available [facility] ([facility]) [address] [place], [address], 04/18/2024 15:08:03 04/12/19 25 04/13/2024 COMP. METAB OLIC PANEL (14) eGFR 82 mL/mi n/1.7 3 >59 Not Available [facility] ([facility]) [address] [place], [address], 04/18/2024 15:08:03 04/12/19 25 04/13/2024 COMP. METAB OLIC PANEL (14) BUN/creatini ne ratio 15 9-23 Not Available [facility] ([facility]) [address] [facility] [place], [address], 04/18/2024 15:08:03 04/12/19 25 04/13/2024 COMP. METAB OLIC PANEL (14) sodium 140 mmol/ L 134-14 4 Not Available [facility] ([facility]) [address] [facility] [place], [address], 04/18/2024 15:08:03 04/12/19 25 04/13/2024 COMP. METAB OLIC PANEL (14) potassium 4.2 mmol/ L 3.5-5. 2 Not Available [facility] ([facility]) [address] [facility] [place], [address], 04/18/2024 15:08:03 04/12/19 25 04/13/2024 COMP. METAB OLIC PANEL (14) chloride 106 mmol/ L 96-106 Not Available [facility] ([facility]) [address] [facility] [place], [address], 04/18/2024 15:08:03 04/12/19 25 04/13/2024 COMP. METAB OLIC PANEL (14) carbon dioxide, total 21 mmol/ L 20-29 Not Available [facility] ([facility]) [address] [place], [address], 04/18/2024 15:08:03 04/12/19 25 04/13/2024 COMP. METAB OLIC PANEL (14) calcium 9.0 mg/dL 8.7-10 .2 Not Available [facility] ([facility]) [address] [place], [address], 04/18/2024 15:08:03 04/12/19 25 04/13/2024 COMP. METAB OLIC PANEL (14) protein, total 6.2 g/dL 6.0-8. 5 Not Available [facility] ([facility]) [address] [place], [address], 04/18/2024 15:08:03 04/12/19 25 04/13/2024 COMP. METAB OLIC PANEL (14) albumin 4.0 g/dL 3.9-4. 9 Not Available [facility] ([facility]) [address], [place], [address], 04/18/2024 15:08:03 04/12/19 25 04/13/2024 COMP. METAB OLIC PANEL (14) globulin, total 2.2 g/dL 1.5-4. 5 Not Available [facility] ([facility]) [address] [place], [address], 04/18/2024 15:08:03 04/12/19 25 04/13/2024 COMP. METAB OLIC PANEL (14) bilirubin, total <0.2 mg/dL 0.0-1. 2 Not Available [facility] ([facility]) [address], [place], [address], 04/18/2024 15:08:03 04/12/19 25 04/13/2024 COMP. METAB OLIC PANEL (14) alkaline phosphatase 78 IU/L 44-121 Not Available [facility] ([facility]) [address] [place], [address], 04/18/2024 15:08:03 04/12/19 25 04/13/2024 COMP. METAB OLIC PANEL (14) AST (SGOT) 11 IU/L 0-40 Not Available [facility] ([facility] [address] [facility] [place], [address], 04/18/2024 15:08:03 04/12/19 25 04/13/2024 COMP. METAB OLIC PANEL (14) ALT (SGPT) 7 IU/L 0-32 Not Available [facility] ([facility]) [address] [facility], [place], [address], 04/18/2024 15:08:03 04/12/19 25 04/14/2024 HOMOC Y+MET HYL homocyst(E)i ne 10.1 umol/ L 0.0-14 .5 Not Available [facility] ([facility]) [address] [facility], [place], [address], 04/18/2024 15:08:04 04/12/19 25 04/18/2024 HOMOC Y+MET HYL methylmaloni c acid, serum 196 nmol/ L 0-378 Not Available [facility] ([facility]) [address] [facility], [place], [address], 04/18/2024 15:08:04 04/12/19 25 04/13/2024 VITAM IN B12+F OLATE vitamin B12 239 pg/mL 232-12 45 Not Available [facility] ([facility]) [address] [facility], [place], [address], 04/18/2024 15:08:04 04/12/19 25 04/13/2024 VITAM IN B12+F OLATE folate (folic acid), serum 8.6 NG/mL >3.0 A serum folat e lorna ntrat ion of less than 3.1 ng/mL is consi dered to repre sent clini noemí defic iency . Not Available [facility] ([facility]) [address] [facility], [place], [address], 04/18/2024 15:08:04 04/12/19 25 04/13/2024 HEMOG LOBIN A1C hemoglobin A1C 5.0 % 4.8-5. 6 Predi abete s: 5.7 - 6.4 Diabe suzan: >6.4 Glyce elisa contr ol for adult s with diabe suzan: <7.0 Not Available [facility] ([facility]) [address] [place], [address], 04/18/2024 15:08:06 04/12/19 25 04/13/2024 PR[address]A [address]IN prolactin 42.1 NG/mL 4.8-33 .4 above high normal Not Available [facility] ([facility]) [address] [facility], [place], [address], 04/18/2024 15:08:07 04/12/19 25 04/12/2024 CBC WITH DIFFE RENTI AL/PL ATELE T WBC 5.8 x10e3 /uL 3.4-10 .8 Not Available [facility] ([facility]) [address] [facility], [place], [address], 04/18/2024 15:08:08 04/12/19 25 04/12/2024 CBC WITH DIFFE RENTI AL/PL ATELE T RBC 4.08 x10e6 /uL 3.77-5 .28 Not Available [facility] ([facility]) [address] [facility], [place], [address], 04/18/2024 15:08:08 04/12/19 25 04/12/2024 CBC WITH DIFFE RENTI AL/PL ATELE T hemoglobin 12.0 g/dL 11.1-1 5.9 Not Available [facility] ([facility]) [address] [facility], [place], [address], 04/18/2024 15:08:08 04/12/19 25 04/12/2024 CBC WITH DIFFE RENTI AL/PL ATELE T hematocrit 36.7 % 34.0-4 6.6 Not Available [facility] ([facility]) [address] [facility], [place], [address], 04/18/2024 15:08:08 04/12/19 25 04/12/2024 CBC WITH DIFFE RENTI AL/PL ATELE T MCV 90 fL 79-97 Not Available [facility] ([facility]) [address] [place], [address], 04/18/2024 15:08:08 04/12/19 25 04/12/2024 CBC WITH DIFFE RENTI AL/PL ATELE T MCH 29.4 pg 26.6-3 3.0 Not Available [facility] ([facility]) [address] [facility], [place], [address], 04/18/2024 15:08:08 04/12/19 25 04/12/2024 CBC WITH DIFFE RENTI AL/PL ATELE T MCHC 32.7 g/dL 31.5-3 5.7 Not Available [facility] ([facility]) [address] [facility], [place], [address], 04/18/2024 15:08:08 04/12/19 25 04/12/2024 CBC WITH DIFFE RENTI AL/PL ATELE T RDW 11.8 % 11.7-1 5.4 Not Available [facility] ([facility]) [address] [facility], [place], [address], 04/18/2024 15:08:08 04/12/19 25 04/12/2024 CBC WITH DIFFE RENTI AL/PL ATELE T platelets 282 x10e3 /uL 150-45 0 Not Available [facility] ([facility]) [address] [facility], [place], [address], 04/18/2024 15:08:08 04/12/19 25 04/12/2024 CBC WITH DIFFE RENTI AL/PL ATELE T neutrophils 55 % notest ab. Not Available [facility] ([facility]) [address] [place], [address], 04/18/2024 15:08:08 04/12/19 25 04/12/2024 CBC WITH DIFFE RENTI AL/PL ATELE T lymphs 34 % notest ab. Not Available [facility] ([facility]) [address] [facility], [place], [address], 04/18/2024 15:08:08 04/12/19 25 04/12/2024 CBC WITH DIFFE RENTI AL/PL ATELE T monocytes 7 % notest ab. Not Available [facility] ([facility]) [address] [facility], [place], [address], 04/18/2024 15:08:08 04/12/19 25 04/12/2024 CBC WITH DIFFE RENTI AL/PL ATELE T eos 4 % notest ab. Not Available [facility] ([facility]) [address] [facility], [place], [address], 04/18/2024 15:08:08 04/12/19 25 04/12/2024 CBC WITH DIFFE RENTI AL/PL ATELE T basos 0 % notest ab. Not Available [facility] ([facility]) [address] [facility], [place], [address], 04/18/2024 15:08:08 04/12/19 25 04/12/2024 CBC WITH DIFFE RENTI AL/PL ATELE T neutrophils (absolute) 3.1 x10e3 /uL 1.4-7. 0 Not Available [facility] ([facility]) [address] [place], [address], 04/18/2024 15:08:08 04/12/19 25 04/12/2024 CBC WITH DIFFE RENTI AL/PL ATELE T lymphs (absolute) 2.0 x10e3 /uL 0.7-3. 1 Not Available [facility] ([facility]) [address] [place], [address], 04/18/2024 15:08:08 04/12/19 25 04/12/2024 CBC WITH DIFFE RENTI AL/PL ATELE T monocytes(ab solute) 0.4 x10e3 /uL 0.1-0. 9 Not Available [facility] ([facility]) [address] [facility], [place], [address], 04/18/2024 15:08:08 04/12/19 25 04/12/2024 CBC WITH DIFFE RENTI AL/PL ATELE T eos (absolute) 0.2 x10e3 /uL 0.0-0. 4 Not Available [facility] ([facility]) [address] [facility], [place], [address], 04/18/2024 15:08:08 04/12/19 25 04/12/2024 CBC WITH DIFFE RENTI AL/PL ATELE T baso (absolute) 0.0 x10e3 /uL 0.0-0. 2 Not Available [facility] ([facility]) [address] [facility], [place], [address], 04/18/2024 15:08:08 04/12/19 25 04/12/2024 CBC WITH DIFFE RENTI AL/PL ATELE T immature granulocytes 0 % notest ab. Not Available [facility] ([facility]) [address] [place], [address], 04/18/2024 15:08:08 04/12/19 25 04/12/2024 CBC WITH DIFFE RENTI AL/PL ATELE T immature grans (abs) 0.0 x10e3 /uL 0.0-0. 1 Not Available [facility] ([facility]) [address] [facility], [place], [address], 04/18/2024 15:08:08 08/04/19 24 08/04/2023 MAMMO , scree katarina, digit al, bilat eral No observ ation record ed. [facility] [address], [place], [address], 10/17/2023 01:26:52 05/12/19 25 05/11/2024 MRI, brain + pitui tary, w/wo contr ast No observ ation record ed. [facility] [address], [place], [address], 05/12/2024 23:30:06 Result Notes None recorded. Problems Name Problem SNOMED Code Status Onset Date Resolution Date Notes Provider Name and Address Organization Details Recorded Time Body mass index 25-29 - overweight 713269118 Active 024 PATRICIO Coley Attn: Geri simms,[address] [facility], [place], [address], [facility] 4 01:25:53 Mixed anxiety and depressive disorder 404231130 Active 024 APTRICIO Coley Attn: Accountsiddharth simms,[address] [facility], [place], [address], [facility] 4 01:25:53 Long-term drug therapy Active 024 PATRICIO Coley Attn: Geri simms,[address] [facility], [place], [address], [facility] 4 01:26:38 Problem Notes None recorded. Procedures Surgical History Date Name Laterality Status Provider Name and Address Organization Details Recorded Time Repair of nasal septum completed Kely Springer MA [facility] 04/14/2023 14:15:18 Imaging Results Imaging Date Name Status LastModified by Organiz ation Details LastModified Time 08/04/2023 MAMMO, screening, digital, bilateral completed [address], [place], [address], 10/17/2023 01:26:52 05/11/2024 MRI, brain + pituitary, w/wo contrast completed [facility] [address], [place], [address], 05/12/2024 23:30:06 Procedure Notes None recorded. Medical Equipment None Reported. Allergies Allergen ID Allergen Name Allergen Category Reaction Reaction Severity Criticality Documentation Date Start Date Code Code System Note Provider Name and Address Organization Details Recorded Time 508702 Bactrim medicatio n hives Not available high 04/14/2023 48103 9 RxNorm Not Available Not Available Not Available 16660520 Ceclor medicatio n Not available Not available Not available 04/14/2023 31372 5 RxNorm Not Available Not Available Not Available Medications Name Sig Start Date Stop Date Status Note LastModified by Organization Details LastModified Time tretinoin 0.1 % topical cream 10/16 completed Not Available Not Available Not Available doxycycline hyclate 100 mg capsule 04/14 completed Not Available Not Available Not Available azithromyci n 250 mg tablet 04/14 completed Not Available Not Available Not Available ofloxacin 0.3 % eye drops INSTILL 1 DROP INTO AFFECTED EYE(S) BY OPHTHALMI C ROUTE 4 TIMES PER DAY x 5-7 days active Not Available Not Available No t Available fluconazole 150 mg tablet 04/14 completed Not Available Not Available Not Available benzonatate 200 mg capsule 04/14 completed Not Available Not Available Not Available prednisone 20 mg tablet 04/14 completed Not Available Not Available Not Available clonazepam 0.5 mg tablet Take 1 Tablet (0.5 mg) by mouth 3 times daily as needed. 2024 active Not Available Not Available Not Avai lable prednisone 5 mg tablet 04/14 completed Not Available Not Available Not Available phentermine 37.5 mg tablet Take 1 tablet every day by oral route in the morning. 10/16 completed Not Available Not Available Not Available valacyclovi r 500 mg tablet Take 1-2 Tablets (500-1,00 0 mg) by mouth 2 times daily as needed as directed. 2024 active Not Available Not Available Not Avai lable benzonatate 100 mg capsule 04/14 completed Not Available Not Available Not Available codeine 10 mg-guaifene sin 100 mg/5 mL oral liquid 04/14 completed Not Available Not Available Not Available mupirocin 2 % topical ointment 04/14 completed Not Available Not Available Not Available azelastine 137 mcg (0.1 %) nasal spray 10/16 completed Not Available Not Available Not Available levofloxaci n 500 mg tablet 04/14 completed Not Available Not Available Not Available methylpredn isolone 4 mg tablets in a dose pack 04/14 completed Not Available Not Available Not Available albuterol sulfate HFA 90 mcg/actuati on aerosol inhaler active Not Available Not Available Not Available amoxicillin 875 mg-potassiu m clavulanate 125 mg tablet 04/14 completed Not Available Not Available Not Available oxycodone 5 mg tablet 04/14 completed Not Available Not Available Not Available bupropion HCl XL 300 mg 24 hr tablet, extended release Take 1 Tablet (300 mg) by mouth daily. 2024 active Not Available Not Available Not Avai lable Wellbutrin SR 04/14 completed Not Available Not Available Not Available clonazepam 04/14 completed Not Available Not Available Not Available Vraylar 1.5 mg capsule Take 1 Capsule (1.5 mg) by mouth daily. 2024 active Not Available Not Available Not Avai lable tirzepatide (weight loss) 5 mg/0.5 mL subcutaneou s pen injector INJECT 5 MG BY SUBCUTANE OUS INJECTION EVERY 7 DAYS. 10/16 completed Not Available Not Available Not Available Zepbound 10 mg/0.5 mL subcutaneou s pen injector Inject 10 mg every week by subcutane ous route. 2024 active Not Available Not Available Not Avai lable Zepbound 7.5 mg/0.5 mL subcutaneou s pen injector Inject 7.5 mg every week by subcutane ous route as directed. 01/25 completed Not Available Not Available Not Available Zepbound 5 mg/0.5 mL subcutaneou s solution Inject 0.5 mL every week by subcutane ous route. 05/16 completed Not Available Not Available Not Available Vitals Date Recorded Body height Body mass index (BMI) Body weight Heart rate Respiratory rate Oxygen saturation Oxygen saturation in Arterial blood by Pulse oximetry Systolic blood pressure Diastolic blood pressure Provider Name and Address Organization Details Last Updated DateTime 4 165.1 cm 30.8 kg/m2 77223.5 9 g 82 /min 18 /min 98 % 98 % 127 mm[Hg] 79 mm[Hg] Kely Springer MA [place] - [facility] 4 14:10:26 Date Recorded Body height Heart rate Oxygen saturation Oxygen saturation in Arterial blood by Pulse oximetry Systolic blood pressure Diastolic blood pressure Provider Name and Address Organization Details Last Updated DateTime 4 165.1 cm 87 /min 98 % 98 % 124 mm[Hg] 68 mm[Hg] Adeline Salazar MA [facility] 4 14:02:07 Date Recorded Body mass index (BMI) Body weight Provider Name and Address Organization Details Last Updated DateTime 10/04/2023 27.1 kg/m2 07826.56 g PATRICIO Coley Attn: Accounting,[address] [place], [address], [facility] 10/04/2023 14:19:43 Date Recorded Body height Provider Name an d Address Organization Details Last Updated DateTime 03/30/2024 165.1 cm Mekhi Mendez MA [facility] 03/30 13:56:10 Date Recorded Body mass index (BMI) Body weight Systolic blood pressure Diastolic blood pressure Provider Name and Address Organization Details Last Updated DateTime 03/30/2024 26.5 kg/m2 65478.19 g 130 mm[Hg] 80 mm[Hg] PATRICIO Coley Attn: Accounting ,[address] [place], [address] , [facility] 03/30/2024 14:25:01 Date Recorded Respiratory rate Oxygen saturation Oxygen saturation in Arterial blood by Pulse oximetry Heart rate Systolic blood pressure Diastolic blood pressure Provider Name and Address Organization Details Last Updated DateTime 18 /min 96 % 96 % 78 /min 138 mm[Hg] 88 mm[Hg] Kely Springer MA [facility] 5 14:02:49 Social History Question Answer Notes LastModified by Organizat ion Details LastModified Time Tobacco Smoking Status Never Smoker Kely Springer MA null, [facility] 04/14/2023 14:06:52 Do You Have An Advance Directive? No Information not available 10/04/2023 What Is Your Level Of Alcohol Consumption? Occasional Wine Information not available 04/14/2023 Are You Blind Or Do You Have Difficulty Seeing? No Information not available 10/04/2023 What Is Your Level Of Caffeine Consumption? Occasional Cofee In Am, Soda Information not available 04/14/2023 In The 14 Days Before Symptom Onset, Have You Had Close Contact With A Laboratory-confir med COVID-19 While That Case Was Ill? No Information not available 10/04/2023 In The 14 Days Before Symptom Onset, Have You Had Close Contact With A Person Who Is Under Investigation For COVID-19 While That Person Was Ill? No Information not available 10/04/2023 Have You Been To An Area Known To Be High Risk For COVID-19? No Information not available 10/04/2023 Are You Currently Employed? Yes Information not available 04/14/2023 Are You Deaf Or Do You Have Serious Difficulty Hearing? No Information not available 10/04/2023 What Type Of Diet Are You Following? REGULAR Information not available 04/14/2023 What Is Your Occupation? [employer] [place] Information not available 04/14/2023 Are There Any Guns Present In Your Home? No Information not available 04/14/2023 What Was The Date Of Your Most Recent Tobacco Screening? 03/30/2024 [email or web address] Information not available 03/30/2024 What Is Your Relationship Status? Information not available 10/04/2023 Do You Use Your Seat Belt Or Car Seat Routinely? Yes Information not available 04/14/2023 Do You Have Smoke And Carbon Monoxide Detectors In Your Home? Yes Information not available 04/14/2023 Do You Use Any Illicit Or Recreational Drugs? No Information not available 04/14/2023 Do You Use Sunscreen Routinely? Yes Information not available 04/14/2023 Has Tobacco Cessation Counseling Been Provided? No Information not available 10/04/2023 Do You Or Have You Ever Used Any Other Forms Of Tobacco Or Nicotine? No Information not available 04/14/2023 Sex: Female Functional Status Question Answer Note LastModified by Organizat ion Details LastModified Time Are you able to care for yourself? Yes Information not available 10/04/2023 What is your exercise level? Occasional Information not available 04/14/2023 Mental Status None recorded. Family History Relationship Description Onset Age of this Age Resolved Age Notes LastModified by Organization Details LastModified Time Father Hypertensive disorder [email or web address] Not available 2023 14:06:04 Notes:cholesterol mom Medical History Condition Response Coronary Artery Disease N High Blood Pressure N Atrial Fibrillation N Kidney or Bladder Problems N Thyroid Problems N GI Problems N Depression Y COPD N Blood Clots N Skin Problems N Anemia N Heart Attack (MD) N Anxiety Disorder Y Diabetes N Muscle, Joint, or Bone Problems N Seizures/Epilepsy N Acid Reflux (GERD) N Cancer N Stroke N Asthma N Allergies Y High Cholesterol N Hepatitis N Liver Disease N Headaches N Heart Failure N Osteoporosis N Gynecological History Statement/Question Response Flow Moderate Date of LMP 03/05/2024 Menses Monthly Y Duration of Flow (days) 6 Current Control Method IUD LMP Approximate Obstetrics History GPAL:G 2 P 2 0 0 2 Type Value Multiple Births 0 Full Term 2 Induced 0 Spontaneous 0 Premature 0 Living 2 Ectopics 0 Total 2 Immunizations Vaccine Type Date Status Note Provider Nam e and Address Organization Details Recorded Time Influenza, MDCK, quadrivalent, PF 2 completed Kely Springer [place] null, [place] [facility] 03/30/2024 14:00:20 Influenza, MDCK, quadrivalent, PF 3 completed Kely [place], [place] [facility] 03/30/2024 14:00:20 COVID-19, mRNA, LNP-S, PF, 30 mcg/0.3 mL dose 1 completed Kely Springer [place], [place] [facility] 03/30/2024 14:00:20 COVID-19, mRNA, LNP-S, PF, 30 mcg/0.3 mL dose 1 completed Kely [place], [place] [facility] 03/30/2024 14:00:20 COVID-19, mRNA, LNP-S, PF, 30 mcg/0.3 mL dose 1 completed Kely [place], [place] [facility] 03/30/2024 14:00:20 COVID-19, mRNA, LNP-S, bivalent, PF, 30 mcg/0.3 mL dose 2 completed CARLOS Knapp, [place] - [facility] 03/30/2024 14:00:20 COVID-19, mRNA, LNP-S, PF, hugo-sucrose, 30 mcg/0.3 mL 3 completed CARLOS Knapp, [place] - [facility] 03/30/2024 14:00:20 Influenza, split virus, trivalent, preservative 1 completed CARLOS Kn[place], [place] - [facility] 03/30/2024 14:00:20 Td (adult), 5 Lf tetanus toxoid, preservative free, adsorbed 6 completed CARLOS Knapp, [facility] 03/30/2024 14:00:20 Hep A, adult 9 completed CARLOS Knapp, [facility] 03/30/2024 14:00:20 Past Encounters Encounter ID Performer Location Encounter Start Date Encounter Closed Date Diagnosis/Indication Diagnosis SNOMED-CT Code Diagnosis ICD10 Code Diagnosis Note [id number] PATRICIO Coley [facility] [address] [place] [address] 04/14/2023 13:51:52 04/14/2023 14:42:03 Body mass index 30+ - obesity 522053606 Z68.30 pt is interested in short course of phentermin e therapy , that has worked well in the past to help spark weight loss prior to the summer. Bunion 811707848 M21.61 9 referral to podiatry for evaluation on treatment path/plan for bunion on foot that is symptomati c. Mixed anxi ety and depressive disorder 871271735 F41.8 refill on clonazepam and wellbutrin therapy. Thyroid di sorder screening 475851628 Z13.29 thyroid panel due. Cholesterol screening 27 3217956 Z13.220 fasting lipid panel due Diabetes m ellitus screening 820755435 Z13.1 annual a1c screening due Long-term drug therapy 234892556 Z79.899 routine cmp and cbc and b12/folate due [id number] PATRICIO Coley [facility] [address] [place] [address] 10/04/2023 13:43:22 10/04/2023 14:26:56 Adult health examination 803914513 Z00.00 Annual wellness exam completed Mixed anxi ety and depressive disorder 398177355 F41.8 Stable on Wellbutrin XL 300 mg daily and clonazepam 0.5 mg 3 times a day as needed and Vraylar 1.5 mg daily which is from specialist . Body mass index 25-29 - overweight 348889383 Z68.27 Patient has lost weight on bound therapy and is very pleased with results. Long-term drug therapy 933407708 Z79.899 Labs are all currently up-to-date at this time [id number] PATRICIO Coley [facility] [address] [place] [address] 03/30/2024 13:47:50 03/30/2024 14:39:31 Body mass index 25-29 - overweight 306916299 Z68.27 Patient has lost weight on bound therapy and is very pleased with results. She will be on maintenanc e Zepbound therapy every 1-2 weeks. Mixed anxi ety and depressive disorder 700747241 F41.8 Stable on Wellbutrin XL 300 mg daily and clonazepam 0.5 mg 3 times a day as needed and Vraylar 1.5 mg daily which is from specialist . Long-term drug therapy 224678571 Z79.899 Labs are all currently due Thyroid di sorder screening 287371371 Z13.29 thyroid panel due. Cholesterol screening 27 0912646 Z13.220 fasting lipid panel due Diabetes m ellitus screening 276940753 Z13.1 annual a1c screening due Bilateral discharge from nipples 1626644886 4432997 N64.52 Patient has seen specialist s in the past for this as well as her gynecologi st. Evaluation and workup was negative per her report. This has been something for over a couple of years. We are going to check an updated prolactin level. Patient has been encouraged to discuss this also with her gynecologi st Overweight 503595576 E66 .3 Health Concerns Section Related Observation LastModified by Organization Detai ls LastModified Time None Recorded Concern Status LastModified by Organization Details LastModified Time None Recorded Advance Directives Directive N: Payers Encounter Date Sequence Insurance Name Policy Number Policy Rutledge Covered Member ID Rutledge Member ID Guarantor Name 04/14/2023 1 [facility] (MEDICARE REPLACEMENT/A DVANTAGE - HMO) [id number] Jaci Naqvi [id number] Jaci Naqvi 10/04/2023 1 [employer] [id number] Nahid Naqvi [id number] Jaci Naqvi 03/30/2024 1 [id number] Nahid Naqvi [id number] Jaci Naqvi Notes Date Note Type Note Provider Name and Address Organization Details Recorded Time 04/14/2023 text/html Anxiety/Depressi on Reported bypatient.Notes:pt is taking clonazepam 0.5mg tid PRN. Her anxiety is elevated lately. she is also on bupropion XL 300mg daily. Vraylar therapy low dose was also added this winter which is seeming to help some. she is pleased with that improvement. PATRICIO Coley Attn: Accounting,[address] [place], [address], [facility] 04/25/2023 16:19:13 10/04/2023 text/html Anxiety/Depressi on Reported bypatient.Notes:pt is taking clonazepam 0.5mg tid PRN. Her anxiety is elevated lately. she is also on bupropion XL 300mg daily. Vraylar therapy low dose was also added this winter which is seeming to help some. she is pleased with that improvement. Patient has also been taking injectables bound therapy for weight loss PATRICIO Coley Attn: Accounting[address] [place], [address], [facility] 10/17/2023 01:27:39 03/30/2024 text/html Anxiety/Depressi on Reported bypatient.Notes:pt is taking clonazepam 0.5mg tid PRN. she is also on bupropion XL 300mg daily. Vraylar therapy low dose was also added this winter which is seeming to help some. she is pleased with that improvement. Patient has also been taking injectables bound therapy for weight loss she has been off for 2 months. She is interested in resuming maintenance dosing PATRICIO Coley Attn: Accounting,[address] [facility], [place], [address], [facility] 04/16/2024 14:17:28 OBGyn Episode No OBEpisode recorded.
--- OUTSIDE RECORDS SUMMARY | 2024-06-02 11:32 | XMS_ITS | Clinical Summary ---
Author Organization [facility] Address [address] [place] [address] Care Team Providers Care Independent Insurance Adjuster Name Role Phone Amandeep Brown MD Primary Care Provider [phone]- [phone] Allergies Active Allergy Reactions Criticality Noted Date Comments Cefaclor Rash,Other (See comments),Fever Medium 08/29/2009 Reaction: rash, , Reaction: Unspec childhd rx, Sulfamethoxazole-Trim ethoprim Other (See comments),Rash,Hives, Urticaria Medium 06/11/2020 Reaction: Hives, Medications buPROPion XL (WELLBUTRIN XL) 300 mg 24 hr tablet 1 Active valACYclovir (VALTREX) 500 mg tablet 1 Active loratadine 10 mg capsule Take 1 tablet by mouth daily Active ibuprofen (ibuprofen) 200 mg tab/cap every 6 hours Activ e fluticasone propionate (FLONASE) 50 mcg/actuation nasal spray Flonase Allergy Relief 50 mcg/actuation nasal spray,suspensio n [place] 1 spray every day by intranasal route. 0 Active clonazePAM (KlonoPIN) 0.5 mg tablet 1 Active COVID-19 vac, hugo,Pfizer,,PF , (PFIZER) 30 mcg/0.3 mL suspension Pfizer-BioNTech COVID-19 Vaccine (PF) 30 mcg/0.3 mL IM susp (purple) ADMINISTER 0.3ML IN THE MUSCLE DIRECTED Active Active Problems Problem Noted Date Diagnosed Date Enlarged uterus 06/30/2021 Mixed anxiety and depressive disorder 12/03/2020 Influenza 06/26/2020 Pharyngitis 06/25/2020 Upper respiratory infection 06/25/2020 Nasal valve collapse 06/11/2020 Bilateral hearing loss 06/11/2020 Acute recurrent sinusitis 06/11/2020 Ultrasound scan to check interval growth of fetu s 08/24/2016 Gestational diabetes mellitu s (GDM) in third trimester controlled on oral hypoglycemic drug 08/24/2016 Depression 04/15/2012 Overview (05/20/2016): Depression History of cervical dysplasia 11/06/2011 Overview (05/21/2016): History of cervical dysplasia Environmental allergies 11/06/2011 Overview (06/26/2020): Environmental allergies Environmental allergies Eating disorder 08/29/2009 Overview (06/25/2020): Eating disorder Essential (primary) hypertension 08/29/2009 Overview (06/25/2020): Hypertension Mental disorder 08/29/2009 Overview (06/26/2020): Overview: anxiety, depression anxiety, depression Uncomplicated asthma 08/29/2009 Immunizations Immunization Administration Dates Next Due Hep A, Adult 10/14/2008 Influenza, Quadrivalent, Spl it, Intramuscular 11/15/2018 Pfizer SARS-CoV-2 Monovalent Vaccination (12+ Yrs) PURPLE 04/08/2020,03/13/2020,11/13/2019 TD Preservative Free 08/30/1995 Surgical History Surgery Date Site/Laterality Comments CERVICAL BIOPSY W/ LOOP ELECTRODE EXCISION Cervical dysplasia: LEEP COLPOSCOPY ASCUS PAP and persistant HR HPV: colposcopy VAGINAL DELIVERY 02/15/2015 - 02/15/2016 : RHINOPLASTY Medical History Medical History Date Comments ; Outco me: 39W0D week 7lb(s) 11 oz Male Abnormal Pap smear of cervix [facility] [place] Pap & + HR HPV Abnormal Pap smear of cervix 2011 ASC US PAP and persistant HR HPV Cervical dysplasia 2001 Cervical dysp lasia Family History Medical History Relation Name Comments Colon cancer Maternal Grandmother Cancer, colon; Breast cancer Neg Hx Deep vein thrombosis Neg Hx Ovarian cancer Neg Hx Uterine cancer Neg Hx Relation Name Status Comments Maternal Grandmother Alive Social History Tobacco Use Types Packs/Day Years Used Date Smoking Tobacco: Never Smokeless Tobacco: Never Alcohol Use Standard Drinks/Week Comments No 0 (1 standard drink = 0.6 oz pur e alcohol) Humiliation, Afraid, Rape, and Kick questionnair e Answer Date Recorded Within the last year, have y ou been afraid of your partner or ex-partner? No 06/26/2019 Within the last year, have y ou been humiliated or emotionally abused in other ways by your partner or ex-partner? No Within the last year, have y ou been kicked, hit, slapped, or otherwise physically hurt by your partner or ex-partner? No 06/26/2019 Within the last year, have y ou been raped or forced to have any kind of sexual activity by your partner or ex-partner? No 06/26/2019 Social Connection and Isolat ion Panel [NHANES] Answer Date Recorded In a typical week, how many times do you talk on the phone with family, friends, or neighbors? More than three times a week 06/26/2019 How often do you get togethe r with friends or relatives? Never 06/26/2019 How often do you attend chur ch or druze services? Never 06/26/2019 Do you belong to any clubs o r organizations such as adventist groups, unions, fraternal or athletic groups, or school groups? No 06/26/2019 How often do you attend meet ings of the clubs or organizations you belong to? Never 06/26/2019 Are you , , di vorced, , never , or living with a partner? 06/26/2019 [facility] - Occupational Stress Questionnaire Answer Date Recorded Do you feel stress - tense, restless, nervous, or anxious, or unable to sleep at night because your mind is troubled all the time - these days? Not at all 06/26/2019 Exercise Vital Sign Answer Date Recorde d On average, how many days pe r week do you engage in moderate to strenuous exercise (like a brisk walk)? 5 days 06/26/2019 On average, how many minutes do you engage in exercise at this level? 30 min 06/26/2019 Comments No Sex and Gender Information Value Date Recorded Sex Assigned at Not on file Legal Sex Female 11:29 AM ERP PROJECT MANAGER Gender Identity Not on file Sexual Orientation Not on file Obstetrics History Para Term AB IAB SAB Ectopic Multiple Livin g Live Births 2 2 2 Date Outcome GA Total Labor Labor/2nd/3rd Weight Sex Type Anes PTL Frannie A1 A5 Name Clin 2015 M Vag-S pont Living 2016 3.572 kg (7 lb 14 oz) M Vag-S pont Living Last Filed Vital Signs Vital Sign Reading Time Taken Comments Blood Pressure 118/82 09/02/2021 10:50 AM CDT Pulse - - Temperature - - Respiratory Rate - - Oxygen Saturation - - Inhaled Oxygen Concentration - - Weight 74.8 kg (165 lb) 09/02/2021 10:50 AM CDT Height 164.3 cm (5' 4.7 ) 09/02/2021 10:50 AM CD T Body Mass Index 27.71 09/02/2021 10:50 AM CDT Plan of Treatment Health Maintenance Due Date Last Done Comments Albumin Creatinine Ratio, Urine 1981 Depression Screening 1981 Hepatitis C Screening 1981 Dilated Eye Exam 1981 Foot Exam 1981 Varicella Vaccines (1 of 2 - 13+ 2-dose series) 1994 DTaP/Tdap/Td Vaccine (1 - Tdap) 08/31/1995 08/30/1995 Hepatitis B Screening 1999 Pneumococcal vaccine <65 (1 of 2 - PCV) 2000 Hemoglobin A1C 11/02/2018 05/02/2018, 12/11/2016 Lipid Panel 05/03/2019 05/02/2018 eGFR 05/03/2019 05/02/2018 Breast Cancer Screening-Mammogram 10/11/2020 10/12/2019, 05/02/2018 Cervical Cancer Screening 06/26/2021 06/26/2020, 02/2012 Regular Well Visit/Exam 18-64 06/30/2022 06/30/2021, 06/26/2020, 06/26/2019, Additional history exists Covid-19 Vaccine ( season) 2023 04/08/2020, 03/13/2020, 11/13/2019 Influenza Vaccine (#1) 2023 11/15/2018 HPV Vaccines Aged Out No longer eligi ble based on patient's age to complete this topic Procedures Procedure Name Priority Date/Time Associated Diagnosis Comments PAP AND HIGH RISK HPV, REFLEX TO GENOTYPING Routine 06/26/2020 10:58 AM CDT Well woman exam Cervical atypia Screening for malignant neoplasm of the cervix Screening for human papillomavirus SCREENING MAMMOGRAM BILATERAL W TREVOR Schedule Routine, Read Routine (OP Routine) 10/12/2019 10:45 AM CDT Screening mammogram, encounter for EGFR Routine 05/02/2018 9:34 AM CDT Well woman exam HEMOGLOBIN A1C Routine 05/02/2018 9:34 AM CDT Well woman exam LIPID PANEL Routine 05/02/2018 9:34 AM CDT Well woman exam from Last 3 Months or Most Recently Relevant to Health Maintenance Results * Pap and High Risk HPV, reflex to Genotyping (06/26/2020 10:58 AM CDT) Swab (Pap test) 06/26/2020 1 0:58 AM CDT 06/27/2020 4:26 PM CDT Narrative PATHOLOGY [facility] - 07/01/2020 4:49 PM CDT [facility] results best viewed via link to PDF [place] [id number] [facility] [place], [place], [place] [address] Tele: Zulema Alvarez MD - Pen Ruler Operator CYTOLOGY REPORT Patient Name: JACI NAQVI Address: [address] [place] [address] Gender: F : 1980 (Age: 40) Service: Laboratory Location: Lab [facility] #: [id number] Patient Type: [facility] Lab Taken: 06/26/2020 Reported: 07/01/2020 Physician(s): Kelly Rock M.D. FINAL DIAGNOSIS: Specimen Type: - ThinPrep Pap and HPV w/ reflex Genotyping Statement of Specimen Adequacy: Source: Cervical/Endocervical - Satisfactory for interpretation - Endocervical /Transformation Zone component present - Case screened using computer assisted imaging technology and manually re- screened by a head of physics. General Categorization: - Negative for intraepithelial lesion or malignancy Interpretation: - Blood present ck/07/01/2020 16:49 DELORES Barone (ASCP) DELORES Lay(ASCP) Report Reviewed and Electronically Signed By DELORES Lay(ASCP) Clerical Data Follow A; G0145 DIAGNOSIS COMMENT: Ancillary Testing: HPV High Risk Group (16, 18, 31, 33, 35, 39, 45, 51, 52, 56, 58, 59, 66 and 68) - Not Detected Reference Range: Not Detected This test was performed using the MARICEL 4800 CLINICAL DIAGNOSIS AND HISTORY Last Menstrual Period: 06/06/20 Previous Abnormal History: ASCUS This specimen has been rescreened in accordance with the [facility] Laboratory Quality Management Program. REPORT IMAGES AND/OR SCANNED DOCUMENTS ONLY VIEWABLE IN PDF FORMAT The Pap test is a screening test used to aid in the detection of cervical cancer and its precursors. It should not be the sole means by which malignant and premalignant lesions are diagnosed. Both false negative and false positive results may occur. It also has poor sensitivity for the detection of endometrial lesions and should not be used to evaluate suspected endometrial abnormalities. For these reasons it is most important to obtain Pap tests at regular intervals, as recommended by your physician or nurse practitioner. us Kelly Rock MD LAB CYTOLOGY ORDERABLES Fin al Result PATHOLOGY [facility] Laboratory Receiving [address] [place] [address] * Screening Mammogram Bilateral W Trevor (10/12/2019 10:45 AM CDT) Anatomical Region Laterality Modality Breast Bilateral Mammography Narrative 10/12/2019 10:53 AM CDT Screening Mammogram Bilateral W Trevor: 10/12/19 Clinical: Screening mammogram, encounter for. Prior Study Comparisons: Comparison was made to the prior available relevant studies at the time of interpretation. Findings: Bilateral No significant masses, malignant type calcifications, skin thickening, nipple retraction, or significant lymphadenopathy is noted in either breast. The CAD review showed no significant findings. The breasts have scattered areas of fibroglandular density. The patient will be notified of results by letter. Impression: BI-RADS ATLAS category (overall): 1 Negative There is no mammographic evidence of malignancy. Routine Screening Mammogram in 1 Yr is recommended for bilateral Overall Assessment: 1 - Negative us Kelly Rock MD IMG MAMMO PROCEDURES Final Result * eGFR (05/02/2018 9:34 AM CDT) eGFR 99 mL/min/1.7 3 m2 [facility] Comment: Interpretive Data Reference Interval Normal >/= 90 mL/min/1.73m2 Mildly decreased* 60 - 89 mL/min/1.73m2 Mildly to moderately decreased 45 - 59 mL/min/1.73m2 Moderately to severely decreased 30 - 44 mL/min/1.73m2 Severely decreased 15 - 29 mL/min/1.73m2 Kidney Failure < 15 mL/min/1.73m2 *Relative to young adult level If -Bruneian multiply value by 1.16. Estimated glomerular filtration rate is determined by the CKD-EPI equation recommended by the National Kidney Foundation (KDIGO 2012 Clinical Practice Guideline for the Evaluation and Management of Chronic Kidney Disease. Kidney Intnl Suppl Feb 2012;3:1). The CKD-EPI equation should not be used for patients with unstable renal function and has not been validated in children and those over 70. Current interpretive data was last reviewed 2016. Blood specimen (specimen) 05/02/2018 9:34 AM CDT 05/02/2018 2:20 PM CDT Narrative [facility] - 05/02/2018 3:06 PM CDT us Kellyradha Rock MD LAB BLOOD ORDERABLES Final Result Performing Organization Address [facility] Co de Phone Number [facility] [address] [facility] [place] [address] * Hemoglobin A1c (05/02/2018 9:34 AM CDT) Hgb A1C 5.2 4.0 - 5.6 % [facility] Estimated Average Glucose 103 mg/dL [facility] Comment: The ADA recommends reporting an estimated Average Glucose (eAG) with all Hemoglobin A1c results using the equation derived from a study of 507 normal and diabetic adults. Minority populations were underrepresented and children were not included. (Diabetes Care 31:2755-7286, 2008). The eAG is not equivalent to a fasting glucose. Blood specimen (specimen) 05/02/2018 9:34 AM CDT 05/02/2018 2:20 PM CDT Narrative [facility] - 05/02/2018 2:38 PM CDT us Kellyradha Rock MD LAB BLOOD ORDERABLES Final Result Performing Organization Address [facility] Co de Phone Number [facility] [address] [place] [address] * Lipid panel (05/02/2018 9:34 AM CDT) Cholesterol 144 30 - 199 mg/dL [facility] Comment: Interpretive Data Ages < or = 19 years Acceptable: <170 mg/dL Borderline high: 170-199 mg/dL High: >or= 200 mg/dL Ages > or = 20 years Desirable: <200 mg/dL Borderline high: 200-239 mg/dL High: >or= 240 mg/dL Literature References: 1. Expert Panel on Integrated Guidelines for Cardiovascular Health and Risk Reduction in Children and Adolescents. Pediatrics 2011;128:S213 2. NCEP Expert Panel. Circulation 2004;110:227 Current Interpretive Data was last revised on 2017. Triglycerides 75 <=149 mg/dL [facility] Comment: Interpretive Data Ages < or = 9 years Acceptable: <75 mg/dL Borderline high: 75-99 mg/dL High: >or= 100 mg/dL Ages 10 to 20 years Acceptable: <90 mg/dL Borderline high: 90-129 mg/dL High: >or= 130 mg/dL Ages > or = 20 years Desirable: <150 mg/dL Borderline high: 150-199 mg/dL High: 200-499 mg/dL Very high: >or= 499 mg/dL Literature References: 1. Expert Panel on Integrated Guidelines for Cardiovascular Health and Risk Reduction in Children and Adolescents. Pediatrics 2011;128:S213 2. NCEP Expert Panel. Circulation 2004;110:227 Current Interpretive Data was last revised on 2017. HDL 52 >=40 mg/dL [facility] Comment: Interpretive Data Ages < or = 19 years Acceptable: >45 mg/dL Borderline low: 40-45 mg/dL Low: <40 mg/dL Ages > or = 20 years Desirable: >or= 60 mg/dL Low: <40 mg/dL Literature References: 1. Expert Panel on Integrated Guidelines for Cardiovascular Health and Risk Reduction in Children and Adolescents. Pediatrics 2011;128:S213 2. NCEP Expert Panel. Circulation 2004;110:227 Current Interpretive Data was last revised on 2017. LDL, calculated 77 <=129 mg/dL [facility] Comment: Interpretive Data Ages < or = 19 years Acceptable: <110 mg/dL Borderline high: 110-129 mg/dL High: >or= 130 mg/dL Ages > or = 20 years Optimal: <100 mg/dL Near optimal: 100-129 mg/dL Borderline high: 130-159 mg/dL High: >160 mg/dL Literature References: 1. Expert Panel on Integrated Guidelines for Cardiovascular Health and Risk Reduction in Children and Adolescents. Pediatrics 2011;128:S213 2. NCEP Expert Panel. Circulation 2004;110:227 Current Interpretive Data was last revised on 2017. Non-HDL Cholesterol 92 mg/dL [facility] Comment: Interpretive Data Ages < or = 19 years Acceptable: <120 mg/dL Borderline high: 120-144 mg/dL High: >145 mg/dL Ages > or = 20 years When triglycerides are >200 mg/dL, Non-HDL cholesterol is a secondary target of therapy with treatment goals that are 30 mg/dL greater than the LDL cholesterol target. Literature References: 1. Expert Panel on Integrated Guidelines for Cardiovascular Health and Risk Reduction in Children and Adolescents. Pediatrics 2011;128:S213 2. NCEP Expert Panel. Circulation 2004;110:227 Current Interpretive Data was last revised on 2017. Chol/HDL ratio 3 [facility] Blood specimen (specimen) 05/02/2018 9:34 AM CDT 05/02/2018 2:20 PM CDT Narrative [facility] - 05/02/2018 3:06 PM CDT us Kelly Rock MD LAB BLOOD ORDERABLES Final Result [facility] [address] [place] [address] from Last 3 Months or Most Recently Relevant to Health Maintenance Insurance [facility] CHOICE PLUS [facility] CHOICE PLUS Care Teams Independent Insurance Adjuster Relationship Specialty Start Date End Date Amandeep Brown MD [address] [place], [place] [id number] PCP - General 05/15/16
--- OUTSIDE RECORDS SUMMARY | 2024-06-02 11:32 | XMS_ITS | Clinical Summary ---
Author Organization [facility] [employer] Address [address] [place] [address] Care Team Providers Care Story Teller Name Role Phone Cherelle Jo MD Primary Care Provider [phone]- [phone] Source Comments [facility],non-owned Affiliates and Associated Physician Practices is amultiple site organization consisting of ambulatory clinics and hospital sitesin [place], [place], [place] and [place]. This disclosure is being madepursuant to the Care Everywhere program and may not contain all information available regarding this patient. Last updated 17.[facility] Allergies Active Allergy Reactions Criticality Noted Date Comments Cefaclor Rash,Fever Medium 08/29/2009 Sulfamethoxazole W-Trimethoprim Urticaria,Rash Medium 06/11/2020 Medications * Be aware that medications may not be up to date on this document. Alwaysverify current medications with the patient. buPROPion XL 24hr (WELLBUTRIN-XL) 150 MG tablet Take 1 tablet by mouth once daily 06/03/2020 Active clonazePAM (KLONOPIN) 0.5 MG tablet Take 1 tablet by mouth once daily 06/03/2020 Active valACYclovir (VALTREX) 500 MG tablet Take 1 tablet by mouth once daily 06/03/2020 Active albuterol HFA (PROVENTIL;VENT DON;PROAIR) 108 (90 Base) MCG/ACT inhaler Inhale 1 puff by mouth as needed Active fluticasone propionate (FLONASE) 50 MCG/ACT nasal spray [place] 2 sprays into each nostril once daily Active Loratadine (CLARITIN) 10 MG Take 1 tablet by mouth once daily Active Active Problems Problem Noted Date Diagnosed Date Nasal valve collapse 06/11/2020 Bilateral hearing loss 06/11/2020 Acute recurrent sinusitis 06/11/2020 Environmental allergies 11/06/2011 Overview (06/11/2020): Environmental allergies Mental disorder 08/29/2009 Overview (05/17/2017): anxiety, depression Essential (primary) hypertension 08/29/2009 Eating disorder 08/29/2009 Uncomplicated asthma 08/29/2009 Immunizations Immunization Administration Dates Next Due Covid Pfizer primary monoval ent 12+ yr 0.3mL Purple cap 04/08/2020,03/18/2020 Family History Medical History Relation Name Comments Hearing Loss - Congenital Father Hypertension Father Eczema Mother Hyperlipidemia Mother Hypertension Mother Relation Name Status Comments Father Mother Social History Tobacco Use Types Packs/Day Years Used Date Smoking Tobacco: Never Smokeless Tobacco: Never Alcohol Use Standard Drinks/Week Comments Yes 0 (1 standard drink = 0.6 oz pur e alcohol) Comments Unknown Sex and Gender Information Value Date Recorded Sex Assigned at Not on file Legal Sex Female 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 Gender Identity Not on file Sexual Orientation Not on file Last Filed Vital Signs Vital Sign Reading Time Taken Comments Blood Pressure 116/78 06/11/2020 8:50 AM CDT Pulse 75 06/11/2020 8:50 AM CDT Temperature 36.8 C (98.3 F) 06/11/2020 8:50 AM CDT Respiratory Rate - - Oxygen Saturation - - Inhaled Oxygen Concentration - - Weight 74.8 kg (165 lb) 06/11/2020 8:50 AM CDT Height 165.1 cm (5' 5 ) 06/11/2020 8:50 AM CDT Body Mass Index 27.46 06/11/2020 8:50 AM CDT Plan of Treatment Health Maintenance Due Date Last Done Comments LIPID TESTING 1981 MAMMOGRAM 1981 PAP SMEAR 1981 HIV SCREENING 1996 HEPATITIS C SCREENING 03/11/1999 DTAP/TDAP/TD VACCINES (1 - Tdap) 2000 HEPATITIS B VACCINE (1 of 3 - 19+ 3-dose series) 2000 PNEUMOCOCCAL VACCINE (1 of 2 - PCV) 2000 COVID-19 VACCINE (3 - 2023-2 5 season) 2023 04/08/2020, 03/18/2020 DEPRESSION SCREENING 02/16/2024 INFLUENZA VACCINE (Season Ended) 2024 ZOSTER VACCINE (1 of 2) 2031 HIB VACCINE Aged Out No longer eligi ble based on patient's age to complete this topic HPV VACCINE Aged Out No longer eligi ble based on patient's age to complete this topic MENINGOCOCCAL (Group B) VACCINE SHARED DECISION-MAKING Aged Out No longer eligible based on patient's age to complete this topic MENINGOCOCCAL GROUPS A/C/Y/W VACCINE Aged Out No longer eligible b ased on patient's age to complete this topic Insurance Care Teams Story Teller Relationship Specialty Start Date End Date Cherelle Jo MD [address] [facility] [address] [place] [address] PCP - General 08/20/09
--- OUTSIDE RECORDS SUMMARY | 2024-06-02 11:33 | XMS_ITS | Encounter Summary ---
Author Organization [facility] Address [address] [place] [address] Phone Care Team Providers Care Cold Press Loader Name Role Phone Amandeep Brown MD Primary Care Provider [phone]- [phone] Encounter Details Date Type Department Care Team (Late st Contact Info) Description 04/12/2017 Orders Only [facility] ProviderDain MD [address] [place] [id number] Social History Tobacco Use Types Packs/Day Years Used Date Smoking Tobacco: Never Smokeless Tobacco: Never Alcohol Use Standard Drinks/Week Comments No 0 (1 standard drink = 0.6 oz pur e alcohol) Comments No Sex and Gender Information Value Date Recorded Sex Assigned at Not on file Legal Sex Female 11:29 AM BASE FILLER Gender Identity Not on file Sexual Orientation Not on file documented as of this encounter Plan of Treatment Not on file documented as of this encounter Procedures Procedure Name Priority Date/Time Associated Diagnosis Comments CYTOLOGY 04/12/2017 12:00 AM BASE FILLER documented in this encounter Results * CYTOLOGY (04/12/2017 12:00 AM BASE FILLER) Narrative 04/12/2017 12:00 AM BASE FILLER Ordered by an unspecified provider. Historical Provider LAB CYTOLOGY ORDERABLES F inal Result documented in this encounter Visit Diagnoses Not on filedocumented in this encounter Care Teams Cold Press Loader Relationship Specialty Start Date End Date Amandeep Brown MD [address] [place] [address] PCP - General 05/15/16 documented as of this encounter
--- OUTSIDE RECORDS SUMMARY | 2024-06-02 11:33 | XMS_ITS | Referral Summary ---
Author Organization [facility] Address [address] [place] [address] Care Team Providers Care Game Advisor Name Role Phone Amandeep Brown MD Primary Care Provider +1- [phone] Allergies Active Allergy Reactions Criticality Noted Date [...] Allergy Relief 50 mcg/actuation nasal spray,suspensio n [place] 1 spray every day by intranasal route. [...] Yrs) PURPLE 04/08/2020,03/13/2020,11/13/2019 TD Preservative Free 08/30/1995 Social History Tobacco Use Types Packs/Day Years [...] often do you attend chur ch or evangelical services? Never 06/26/2019 Do you belong to any clubs o r organizations such as presybeterian groups, unions, fraternal or athletic groups, or school groups? No 06/26/2019 How often do you attend meet ings of the clubs or organizations you belong to? Never 06/26/2019 Are you , , di vorced, , never , or living with a partner? 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 Gender Identity Not on file Sexual Orientation [...] 09/02/2021 10:50 AM CDT Plan of Treatment Not on file Procedures Procedure Name Priority Date/Time Associated Diagnosis [...] CDT 06/27/2020 4:26 PM CDT Narrative PATHOLOGY [facility] - 07/01/2020 4:49 PM CDT [facility] results best viewed via link to PDF [address] [address] Tele: Zulema Alvarez MD - Forensic Pathologist CYTOLOGY REPORT Patient Name: JACI NAQVI Address: [address] [place] [address] Gender: F : 1980 (Age: 40) Service: Laboratory Location: Lab [facility] #: [id number] Patient Type: [facility] Lab Taken: 06/26/2020 Reported: 07/01/2020 Physician(s): Kelly Rock M.D. FINAL DIAGNOSIS: Specimen Type: - ThinPrep Pap and HPV w/ reflex Genotyping Statement of Specimen Adequacy: Source: Cervical/Endocervical - Satisfactory for interpretation - Endocervical /Transformation Zone component present - Case screened using computer assisted imaging technology and manually re- screened by a dock attendant. General Categorization: - Negative for intraepithelial lesion or malignancy Interpretation: - Blood present 07/01/2020 16:49 DELORES Barone (ASCP) DELORES Lay(ASCP) Report [...] has been rescreened in accordance with the [facility] Laboratory Quality Management Program. REPORT IMAGES AND/OR [...] LAB CYTOLOGY ORDERABLES Fin al Result PATHOLOGY [facility] Laboratory Receiving [address] [place] [address] * Screening Mammogram Bilateral W Trevor (10/12/2019 10:45 AM CDT) Anatomical Region Laterality Modality Breast Bilateral Mammography Narrative 10/12/2019 10:53 AM CDT Screening Mammogram Bilateral W Trevor: 8/27/20 Clinical: Screening mammogram, encounter for. Prior Study [...] bilateral Overall Assessment: 1 - Negative us Kellyradha Rock MD IMG MAMMO PROCEDURES Final Result * eGFR (05/02/2018 9:34 AM CDT) eGFR 99 mL/min/1.7 3 m2 J[facility] Comment: Interpretive Data Reference Interval Normal >/= 90 mL/min/1.73m2 Mildly decreased* 60 - 89 mL/min/1.73m2 Mildly to moderately decreased 45 - 59 mL/min/1.73m2 Moderately to severely decreased 30 - 44 mL/min/1.73m2 Severely decreased 15 - 29 mL/min/1.73m2 Kidney Failure < 15 mL/min/1.73m2 *Relative to young adult level If -Palestinian multiply value by 1.16. Estimated glomerular filtration [...] CDT 05/02/2018 2:20 PM CDT Narrative [facility] - 05/02/2018 3:06 PM CDT us Kellyradha Rock MD LAB BLOOD ORDERABLES Final Result [facility] [address] Department [place] [place] [address] * Hemoglobin A1c (05/02/2018 9:34 AM CDT) Hgb A1C 5.2 4.0 - 5.6 % [facility]3] Estimated Average Glucose 103 mg/dL [facility]3] Comment: The ADA recommends reporting an estimated Average Glucose (eAG) with all Hemoglobin A1c results using the equation derived from a study of 507 normal and diabetic adults. Minority populations were underrepresented and children were not included. (Diabetes Care 31:5255-9502, 2008). The eAG is not equivalent to a fasting glucose. Blood specimen (specimen) 05/02/2018 9:34 AM CDT 05/02/2018 2:20 PM CDT Narrative [facility]3] - 05/02/2018 2:38 PM CDT us Kelly Rock MD LAB BLOOD ORDERABLES Final Result [facility]3] [address] Department [place] [address] * Lipid panel (05/02/2018 9:34 AM CDT) Pathologist [facility] Cholesterol 144 30 - 199 mg/dL [facility]3] Comment: Interpretive Data Ages < or = [...] revised on 2017. Triglycerides 75 <=149 mg/dL [facility]3] Comment: Interpretive Data Ages < or = [...] revised on 2017. HDL 52 >=40 mg/dL [facility]3] Comment: Interpretive Data Ages < or = [...] on 2017. LDL, calculated 77 <=129 mg/dL [facility]3] Comment: Interpretive Data Ages < or = [...] Pediatrics 2011;128:S213 2. NCEP Expert Panel. Circulation 2003;110:227 Current Interpretive Data was last revised on 2017. Non-HDL Cholesterol 92 mg/dL [facility]3] Comment: Interpretive Data Ages < or = [...] Pediatrics 2011;128:S213 2. NCEP Expert Panel. Circulation 2003;110:227 Current Interpretive Data was last revised on 2017. Chol/HDL ratio 3 [facility]3] Blood specimen (specimen) 05/02/2018 9:34 AM CDT 05/02/2018 2:20 PM CDT [facility]ative [facility] - 05/02/2018 3:06 PM CDT us Kelly Rock MD LAB BLOOD ORDERABLES Final Result [facility]3] [address] Department [place] [address] from Last 3 Months or Most Recently Relevant to Health Maintenance Insurance [facility] PLUS [facility] PLUS Care Teams Game Advisor Relationship Specialty Start Date End Date Amandeep Brown MD [address] [place] [address] PCP - General 05/15/16
[2024-06-02 11:50] LABS: Hematocrit 36.4 % (37.0-47.0); Hemoglobin 11.2 g/dL (12.0-15.0)
== END 2024-06-02 11:22 | disposition home or self-care (01) ==
LOC: ANHSURGERY 11:27
PROVIDERS: PCP Physician Assistant; Visit Provider Student in an Organized Health Care Education/Training Program
DX: N93.9 Abnormal uterine and vaginal bleeding, unspecified (principal)
CPT/HCPCS: 36415; 85014; 85018

== ENCOUNTER 2024-06-08 01:34 | Day surgery (SDC) | payer BC, SELFPAY ==
[2024-05-31 09:13] VITALS: BMI 23.3
--- NOTE | 2024-05-31 09:18 | PC.NURSE ---
Addendum entered by Arpit Wilson RN 06/05/24 08:06: Patient last took Zepbound 05-31-2024 and is holding now until after surgery. Addendum entered by Arpit Wilson RN 05/31/24 15:54: Correction, patient told to take Bupropion. Does not take Buspirone. Original Note: Report to the Outpatient Waiting Room, entrance under the green pavilion located off [address], at time _1000_ on date _[id number]_. Planned Procedure Time: _1200_.? Time changes happen often and if your time is changed the preop area will call you the afternoon before. - You and your visitor will be asked to self-screen and do not enter if you have any COVID symptoms. Please call surgeon if you need to reschedule. - A mask is optional within the hospital at this time. Patients may have clear liquids (water, carbonated beverages, clear teas, apple juice) until 3 hours prior to surgery with a maximum of 20 ounces. - No food from midnight until time of surgery and no smoking, or chewing tobacco (or any form of nicotine). No chewing gum, candy or mints. Take only the following medications with a SIP of water on the morning of surgery: __Buspirone, Clonazepam and Vraylar DO NOT STOP ANY OF YOUR OTHER PRESCRIPTION MEDICATIONS PRIOR TO SURGERY EXCEPT THE FOLLOWING Hold all vitamins and supplements for 3 days per anesthesiologist. Medications to discontinue per physician Date to take last dose Please no make-up, nail costa rican, hairspray, perfume, deodorant, or body powder the day of surgery.? No jewelry (including any body piercings) or valuables the day of surgery, leave them at home.? Please take a shower or bath the night before, or the morning of, surgery with an antibacterial soap.? Wear comfortable, loose fitting clothing.? - Jewelry must be removed prior to entering the operating room.? Rings and piercings that are not removed may be cut off. - The hospital will not accept responsibility for valuables.? - Please leave all valuables, including medications, at home the day of surgery. If you are going home after surgery, a licensed delivery driver/customer service must drive you home.? - NO public transportation without another adult if you receive anesthesia. - We recommend that an adult stay with you for 24 hours following discharge. - We also recommend that you do not drive, make important decision, drink alcoholic beverages, or take any drugs that were not prescribed by your health care provider for at least 24 hours after your discharge time. Follow any additional instructions given to you from your surgeon. Telephone instructions given to _Ruby__and asked if any additional questions and then verbalized understanding. Patient advised to call surgeon office or pre surgery nurse liaison [phone] if any additional questions.
--- OUTSIDE RECORDS SUMMARY | 2024-06-08 01:38 | XMS_ITS | Clinical Summary ---
Author Organization [facility] Address [address] [place] [address] Care Team Providers Care Asbestos Brake Lining Finisher Helper Name Role Phone Amandeep Brown MD Primary Care Provider +1- [phone] Allergies Active Allergy Reactions Criticality Noted Date [...] Allergy Relief 50 mcg/actuation nasal spray,suspensio n [place] 1 spray every day by intranasal route. [...] often do you attend chur ch or gnosticism services? Never 06/26/2019 Do you belong to any clubs o r organizations such as sikh groups, unions, fraternal or athletic groups, or school groups? No 06/26/2019 How often do you attend meet ings of the clubs or organizations you belong to? Never 06/26/2019 Are you , , di vorced, , never , or living with a partner? 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 Gender Identity Not on file Sexual Orientation [...] season) 2023 04/08/2020, 03/13/2020, 11/13/2019 Influenza Vaccine (Season Ended) 2024 11/15/2018 HPV Vaccines Aged Out No longer [...] CDT 06/27/2020 4:26 PM CDT Narrative PATHOLOGY [facility] - 07/01/2020 4:49 PM CDT [facility] results best viewed via link to PDF [place] [id number] [facility], [place], [place] [address] Tele: Zulema Alvarez MD - Director Of Education And Training CYTOLOGY REPORT Patient Name: JACI NAQVI Address: [address] [place] [address] Gender: F : 1980 (Age: 40) Service: Laboratory Location: Lab [facility] #: [id number] Patient Type: [facility] Lab Taken: 06/26/2020 Reported: 07/01/2020 Physician(s): Kelly Rock M.D. FINAL DIAGNOSIS: Specimen Type: - ThinPrep Pap and HPV w/ reflex Genotyping Statement of Specimen Adequacy: Source: Cervical/Endocervical - Satisfactory for interpretation - Endocervical /Transformation Zone component present - Case screened using computer assisted imaging technology and manually re- screened by a rheostat assembler. General Categorization: - Negative for intraepithelial lesion [...] has been rescreened in accordance with the [facility] Laboratory Quality Management Program. REPORT IMAGES AND/OR [...] LAB CYTOLOGY ORDERABLES Fin al Result PATHOLOGY [facility] Laboratory Receiving [address] [place] [address] * Screening Mammogram Bilateral W Trevor (10/12/2019 [...] AM CDT) eGFR 99 mL/min/1.7 3 m2 [facility] Comment: Interpretive Data Reference Interval Normal >/= 90 mL/min/1.73m2 Mildly decreased* 60 - 89 mL/min/1.73m2 Mildly to moderately decreased 45 - 59 mL/min/1.73m2 Moderately to severely decreased 30 - 44 mL/min/1.73m2 Severely decreased 15 - 29 mL/min/1.73m2 Kidney Failure < 15 mL/min/1.73m2 *Relative to young adult level If -[place] Islander multiply value by 1.16. Estimated glomerular filtration [...] CDT 05/02/2018 2:20 PM CDT Narrative [facility] - 05/02/2018 3:06 PM CDT us Kellyradha Rock MD LAB BLOOD ORDERABLES Final Result Performing Organization Address [facility] Co de Phone Number [facility] [address] [facility] [place] [address] * Hemoglobin A1c (05/02/2018 9:34 AM CDT) Hgb A1C 5.2 4.0 - 5.6 % [facility] Estimated Average Glucose 103 mg/dL [facility] Comment: The ADA recommends reporting an estimated Average Glucose (eAG) with all Hemoglobin A1c results using the equation derived from a study of 507 normal and diabetic adults. Minority populations were underrepresented and children were not included. (Diabetes Care 31:1054-4855, 2008). The eAG is not equivalent to a fasting glucose. Blood specimen (specimen) 05/02/2018 9:34 AM CDT 05/02/2018 2:20 PM CDT Narrative [facility] - 05/02/2018 2:38 PM CDT us Kellyradha Rock MD LAB BLOOD ORDERABLES Final Result Performing Organization Address [facility] Co de Phone Number [facility] [address] [place] [address] * Lipid panel (05/02/2018 9:34 AM CDT) Cholesterol 144 30 - 199 mg/dL [facility] Comment: Interpretive Data Ages < [...] revised on 2017. Triglycerides 75 <=149 mg/dL [facility] Comment: Interpretive Data Ages < [...] revised on 2017. HDL 52 >=40 mg/dL [facility] Comment: Interpretive Data Ages < [...] on 2017. LDL, calculated 77 <=129 mg/dL [facility] Comment: Interpretive Data Ages < [...] revised on 2017. Non-HDL Cholesterol 92 mg/dL [facility] Comment: Interpretive Data Ages < [...] last revised on 2017. Chol/HDL ratio 3 [facility] Blood specimen (specimen) 05/02/2018 9:34 AM CDT 05/02/2018 2:20 PM CDT Narrative [facility] - 05/02/2018 3:06 PM CDT us Kelly Rock MD LAB BLOOD ORDERABLES Final Result [facility] [address] Department [place] [address] from Last 3 Months or Most Recently Relevant to Health Maintenance Insurance [facility] CHOICE PLUS [facility] CHO[facility] PLUS Care Teams Asbestos Brake Lining Finisher Helper Relationship Specialty Start Date End Date Amandeep Brown MD [address] [place], [place] [id number] PCP - General 05/15/16
--- OUTSIDE RECORDS SUMMARY | 2024-06-08 01:38 | XMS_ITS | Referral Summary ---
Author Organization [facility] Address [address] [place] [address] Care Team Providers Care Proposal Review Analyst Name Role Phone Amandeep Brown MD Primary Care Provider +1- [phone] Allergies Active Allergy Reactions Criticality Noted Date [...] Allergy Relief 50 mcg/actuation nasal spray,suspensio n [place] 1 spray every day by intranasal route. [...] often do you attend chur ch or yarsanism services? Never 06/26/2019 Do you belong to any clubs o r organizations such as worship groups, unions, fraternal or athletic groups, or school groups? No 06/26/2019 How often do you attend meet ings of the clubs or organizations you belong to? Never 06/26/2019 Are you , , di vorced, , never , or living with a partner? 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 FINAL DIAGNOSIS: Specimen Type: - ThinPrep Pap and HPV w/ reflex Genotyping Statement of Specimen Adequacy: Source: Cervical/Endocervical - Satisfactory for interpretation - Endocervical /Transformation Zone component present - Case screened using computer assisted imaging technology and manually re- screened by a linux system admin. General Categorization: - Negative for intraepithelial lesion [...] has been rescreened in accordance with the [facility] Laboratory Quality Management Program. REPORT IMAGES [...] LAB CYTOLOGY ORDERABLES Fin al Result PATHOLOGY [facility] Laboratory Receiving [address] [place] [address] * Screening Mammogram Bilateral W Trevor (10/12/2019 [...] CDT) eGFR 99 mL/min/1.7 3 m2 [facility] Comment: Interpretive Data Reference Interval Normal >/= 90 mL/min/1.73m2 Mildly decreased* 60 - 89 mL/min/1.73m2 Mildly to moderately decreased 45 - 59 mL/min/1.73m2 Moderately to severely decreased 30 - 44 mL/min/1.73m2 Severely decreased 15 - 29 mL/min/1.73m2 Kidney Failure < 15 mL/min/1.73m2 *Relative to young adult level If -Venezuelan multiply value by 1.16. Estimated glomerular filtration [...] MD LAB BLOOD ORDERABLES Final Result JIA [facility] [address] [place] [address] * Hemoglobin A1c (05/02/2018 9:34 AM CDT) Hgb A1C 5.2 4.0 - 5.6 % [facility] Estimated Average Glucose 103 mg/dL [facility] Comment: The ADA recommends reporting an estimated Average Glucose (eAG) with all Hemoglobin A1c results using the equation derived from a study of 507 normal and diabetic adults. Minority populations were underrepresented and children were not included. (Diabetes Care 31:9072-3850, 2008). The eAG is not equivalent to a fasting glucose. Blood specimen (specimen) 05/02/2018 9:34 AM CDT 05/02/2018 2:20 PM CDT Narrative [facility] - 05/02/2018 2:38 PM CDT us Kelly Rock MD LAB BLOOD ORDERABLES Final Result [facility] [address] [place] [address] * Lipid panel (05/02/2018 9:34 AM CDT) Pathologist [facility] Cholesterol 144 30 - 199 mg/dL [facility] Comment: Interpretive Data Ages < or = [...] revised on 2017. Triglycerides 75 <=149 mg/dL [facility] Comment: Interpretive Data Ages < or = [...] revised on 2017. HDL 52 >=40 mg/dL [facility] Comment: Interpretive Data Ages < or = [...] on 2017. LDL, calculated 77 <=129 mg/dL [facility] Comment: Interpretive Data Ages < or = [...] revised on 2017. Non-HDL Cholesterol 92 mg/dL [facility] Comment: Interpretive Data Ages < or = [...] last revised on 2017. Chol/HDL ratio 3 [facility] Blood specimen (specimen) 05/02/2018 9:34 AM CDT 05/02/2018 2:20 PM CDT Narrative [facility] - 05/02/2018 3:06 PM CDT us Kelly Rock MD LAB BLOOD ORDERABLES Final Result [facility] [address] [place] [address] from Last 3 Months or Most Recently Relevant to Health Maintenance Insurance [facility] PLUS [facility] HMO/PPO Address: [address] [address] [facility] CHOICE PLUS [facility] HMO/PPO Address: [facility] [address] [place] [address] Care Teams Proposal Review Analyst Relationship Specialty Start Date End Date Amandeep Brown MD [address] [place] [address] PCP - General 05/15/16
--- OUTSIDE RECORDS SUMMARY | 2024-06-08 01:38 | XMS_ITS | Clinical Summary ---
Author Organization [facility] [employer] Address [address] [place] [address] Care Team Providers Care Manifold Operator Name Role Phone Cherelle Jo MD Primary Care Provider +1- [phone] Source Comments [facility],non-owned Affiliates and Associated Physician Practices is amultiple site organization consisting of ambulatory clinics and hospital sitesin [place], [place], [place] and [place]. This disclosure is being madepursuant to the Care Everywhere program and may not contain all information available regarding this patient. 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
--- OUTSIDE RECORDS SUMMARY | 2024-06-08 01:38 | XMS_ITS | Data Portability ---
[facility] Address [address] [place] [address] Care Team Providers Care Lamp Inspector Name Role Phone ALAYNA JAIMES Primary Care Provider [phone] Assessment Encounter Date Assessment Date Assessment LastModified [...] prolactin , serum 2024 025 [facility], [address] [place] [address], [address], 04/18/2024 15:08:07 TSH + free T4, serum 2024 025 [facility], [address] [place] [address], [place], [address], 04/18/2024 15:08:00 CMP, serum or plasma 2024 025 [facility], [address] [place] [address] 2, [place], [address], 04/18/2024 15:08:03 CBC w/ auto diff 2024 025 [facility], [address] [facility], [facility], [place], [address], 04/18/2024 15:08:08 vitamin B12 + folate, serum or blood 2024 025 [facility], [address] [facility], [facility], [place], [address], 04/18/2024 15:08:05 lipid panel, serum 2024 025 [facility], [address] [facility], [facility], [place], [address], 04/18/2024 15:08:02 HbA1c (hemoglob in A1c), blood 2024 025 [facility], [address] [facility], [facility], [place], [address], 04/18/2024 15:08:06 TSH + free T4, serum 2023 024 [facility], [address] [facility], [facility], [place], [address], 05/04/2023 12:13:55 lipid panel, serum 2023 024 [facility], [facility], [facility], [place], [address], 05/04/2023 12:13:56 CMP, serum or plasma 2023 024 [facility], [address] [facility], [facility], [place], [address], 05/04/2023 12:13:56 CBC w/ auto diff 2023 024 [facility], [address] [facility], [facility], [place], [address], 05/04/2023 12:13:58 vitamin B12 + folate, serum or blood 2023 024 [facility], [address] [facility] [address], [place], [address], 05/04/2023 12:13:57 HbA1c (hemoglob in A1c), blood 2023 024 [facility], [address] [facility] [address], [place], [address], 05/04/2023 12:13:57 Referral podiatris t referral 2023 024 tra Moreno Jr [facility], [address], [address], [place], [address], 03/30/2024 16:49:04 Procedures None recorded. Surgeries None recorded. Imaging None recorded. Medication Orders Zepbound 10 mg/0.5 mL subcutane ous pen injector 2024 025 [facility], [address], [place], [place], [id number], 03/30/2024 14:26:04 clonazepa m 0.5 mg tablet 2023 024 [facility], [address], [place], [place], [id number], 04/14/2023 14:38:56 bupropion HCl XL 300 mg 24 hr tablet, extended release 2023 024 [facility], [address], [place], [place], [id number], 04/14/2023 14:38:50 phentermi ne 37.5 mg tablet 2023 024 [facility], [address], [place], [place], [id number], 10/17/2023 01:26:02 Patient TargetsNo targets recorded. Patient Instructions Encounter Date Encounter Id Patient Instructions Last Modified By Organization Details Last Modified Time 03/30/2024 [id number] A healthy lifestyle: care instructions Not available 04/16/2024 14:16:34 Reason for Referral [facility] Referral for [facility] on Referring Physician: Alayna Jaimes, Internal Medicine, Encounter Date: 04/14/2023 Results Created Date Observation Date Name Description Value Unit Range Abnormal Flag Note LastModifiedBy Organization Detail LastModifiedTime 05/03/1905/04/2023 TSH+F REE T4 TSH 1.830 uIU/m L 0.450- 4.500 Not Available [facility] ([facility]) [address] [place], [address], 05/04/2023 12:13:55 05/03/1905/04/2023 TSH+F REE T4 T4,free(dire ct) 0.87 NG/dL 0.82-1 .77 Not Available [facility] ([facility]) [address] [place], [address], 05/04/2023 12:13:55 05/03/19 24 05/04/2023 LIPID PANEL cholesterol, total 166 mg/dL 100-19 9 Not Available [facility] ([facility]) [address] [place], [address], 05/04/2023 12:13:55 05/03/19 24 05/04/2023 LIPID PANEL triglyceride s 74 mg/dL 0-149 Not Available [facility] ([facility]) [address] [place], [address], 05/04/2023 12:13:55 05/03/19 24 05/04/2023 LIPID PANEL HDL cholesterol 54 mg/dL >39 Not Available [facility] ([facility]) [address] [place], [address], 05/04/2023 12:13:55 05/03/19 24 05/04/2023 LIPID PANEL VLDL cholesterol noemí 14 mg/dL 5-40 Not Available [facility] ([facility]) [address] [place], [address], 05/04/2023 12:13:55 05/03/19 24 05/04/2023 LIPID PANEL LDL chol calc ([facility]) 98 mg/dL 0-99 Not Available [facility] ([facility]) [address] [place], [address], 05/04/2023 12:13:55 05/03/19 24 05/04/2023 COMP. METAB OLIC PANEL (14) glucose 95 mg/dL 70-99 Not Available [facility] ([facility]) [address] [place], [address], 05/04/2023 12:13:56 05/03/19 24 05/04/2023 COMP. METAB OLIC PANEL (14) BUN 11 mg/dL 6-24 Not Available [facility] ([facility]) [address] [place], [address], 05/04/2023 12:13:56 05/03/19 24 05/04/2023 COMP. METAB OLIC PANEL (14) creatinine 0.93 mg/dL 0.57-1 .00 Not Available [facility] ([facility]) [address] [place], [address], 05/04/2023 12:13:56 05/03/19 24 05/04/2023 COMP. METAB OLIC PANEL (14) eGFR 79 mL/mi n/1.7 3 >59 Not Available [facility] ([facility]) [address] [place], [address], 05/04/2023 12:13:56 05/03/19 24 05/04/2023 COMP. METAB OLIC PANEL (14) BUN/creatini ne ratio 12 9-23 Not Available [facility] ([facility]) [address] [facility] [place] [place], [address], 05/04/2023 12:13:56 05/03/19 24 05/04/2023 COMP. METAB OLIC PANEL (14) sodium 139 mmol/ L 134-14 4 Not Available [facility] ([facility]) [address] [facility] [place] [place], [address], 05/04/2023 12:13:56 05/03/19 24 05/04/2023 COMP. METAB OLIC PANEL (14) potassium 4.2 mmol/ L 3.5-5. 2 Not Available [facility] ([facility]) [address] [facility] [place] [place], [address], 05/04/2023 12:13:56 05/03/19 24 05/04/2023 COMP. METAB OLIC PANEL (14) chloride 103 mmol/ L 96-106 Not Available [facility] ([facility]) [address] [facility] [place] [place], [address], 05/04/2023 12:13:56 05/03/19 24 05/04/2023 COMP. METAB OLIC PANEL (14) carbon dioxide, total 24 mmol/ L 20-29 Not Available [facility] ([facility]) [address] [facility] [place] [place], [address], 05/04/2023 12:13:56 05/03/19 24 05/04/2023 COMP. METAB OLIC PANEL (14) calcium 9.1 mg/dL 8.7-10 .2 Not Available [facility] ([facility]) [address] [facility] [place] [place], [address], 05/04/2023 12:13:56 05/03/19 24 05/04/2023 COMP. METAB OLIC PANEL (14) protein, total 6.4 g/dL 6.0-8. 5 Not Available [facility] ([facility]) [address] [place], [address], 05/04/2023 12:13:56 05/03/19 24 05/04/2023 COMP. METAB OLIC PANEL (14) albumin 4.3 g/dL 3.9-4. 9 Not Available [facility] ([facility]) [address] [facility] [place] [place], [address], 05/04/2023 12:13:56 05/03/19 24 05/04/2023 COMP. METAB OLIC PANEL (14) globulin, total 2.1 g/dL 1.5-4. 5 Not Available [facility] ([facility]) [address] [facility] [place], [address], 05/04/2023 12:13:56 05/03/19 24 05/04/2023 COMP. METAB OLIC PANEL (14) A/G ratio 2.0 1.2-2. 2 Not Available [facility] ([facility]) [address] [facility], [place], [address], 05/04/2023 12:13:56 05/03/19 24 05/04/2023 COMP. METAB OLIC PANEL (14) bilirubin, total 0.2 mg/dL 0.0-1. 2 Not Available [facility] ([facility]) [address] [facility], [place], [address], 05/04/2023 12:13:56 05/03/19 24 05/04/2023 COMP. METAB OLIC PANEL (14) alkaline phosphatase 87 IU/L 44-121 Not Available [facility] ([facility]) [address] [facility] [place] [place], [address], 05/04/2023 12:13:56 05/03/19 24 05/04/2023 COMP. METAB OLIC PANEL (14) AST (SGOT) 12 IU/L 0-40 Not Available [facility] ([facility]) [address] [facility] [place] [place], [address], 05/04/2023 12:13:56 05/03/19 24 05/04/2023 COMP. METAB OLIC PANEL (14) ALT (SGPT) 10 IU/L 0-32 Not Available [facility] ([facility]) [address] [facility], [place], [address], 05/04/2023 12:13:56 05/03/19 24 05/04/2023 VITAM IN B12 AND FOLAT E vitamin B12 388 pg/mL 232-12 45 Not Available [facility] ([facility]) [address] [facility], [place], [address], 05/04/2023 12:13:57 05/03/19 24 05/04/2023 VITAM IN B12 AND FOLAT E folate (folic acid), serum 13.9 NG/mL >3.0 A serum folat e lorna ntrat ion of less than 3.1 ng/mL is consi dered to repre sent clini noemí defic iency . Not Available [facility] ([facility]) [address] [facility], [place], [address], 05/04/2023 12:13:57 05/03/1905/04/2023 HEMOG LOBIN A1C hemoglobin A1C 5.7 % 4.8-5. 6 above high normal Predi abete s: 5.7 - 6.4 Diabe suzan: >6.4 Glyce elisa contr ol for adult s with diabe suzan: <7.0 Not Available [facility] ([facility]) [address] [facility], [place], [address], 05/04/2023 12:13:57 05/03/19 24 05/04/2023 CBC WITH DIFFE RENTI AL/PL ATELE T WBC 6.0 x10e3 /uL 3.4-10 .8 Not Available [facility] ([facility]) [address] [facility], [place], [address], 05/04/2023 12:13:58 05/03/19 24 05/04/2023 CBC WITH DIFFE RENTI AL/PL ATELE T RBC 4.41 x10e6 /uL 3.77-5 .28 Not Available [facility] ([facility]) [address] [place], [address], 05/04/2023 12:13:58 05/03/19 24 05/04/2023 CBC WITH DIFFE RENTI AL/PL ATELE T hemoglobin 11.4 g/dL 11.1-1 5.9 Not Available [facility] ([facility]) [address] [place], [address], 05/04/2023 12:13:58 05/03/19 24 05/04/2023 CBC WITH DIFFE RENTI AL/PL ATELE T hematocrit 36.4 % 34.0-4 6.6 Not Available [facility] ([facility]) [address] [place], [address], 05/04/2023 12:13:58 05/03/19 24 05/04/2023 CBC WITH DIFFE RENTI AL/PL ATELE T MCV 83 fL 79-97 Not Available [facility] ([facility]) [address] [place], [address], 05/04/2023 12:13:58 05/03/19 24 05/04/2023 CBC WITH DIFFE RENTI AL/PL ATELE T MCH 25.9 pg 26.6-3 3.0 below low normal Not Available [facility] ([facility]) [address] [place], [address], 05/04/2023 12:13:58 05/03/19 24 05/04/2023 CBC WITH DIFFE RENTI AL/PL ATELE T MCHC 31.3 g/dL 31.5-3 5.7 below low normal Not Available [facility] ([facility]) [address] [place], [address], 05/04/2023 12:13:58 05/03/19 24 05/04/2023 CBC WITH DIFFE RENTI AL/PL ATELE T RDW 13.6 % 11.7-1 5.4 Not Available [facility] ([facility]) [address] [facility], [place], [address], 05/04/2023 12:13:58 05/03/19 24 05/04/2023 CBC WITH DIFFE RENTI AL/PL ATELE T platelets 324 x10e3 /uL 150-45 0 Not Available [facility] ([facility]) [address] [facility], [place], [address], 05/04/2023 12:13:58 05/03/19 24 05/04/2023 CBC WITH DIFFE RENTI AL/PL ATELE T neutrophils 50 % notest ab. Not Available [facility] ([facility]) [address] [facility], [place], [address], 05/04/2023 12:13:58 05/03/19 24 05/04/2023 CBC WITH DIFFE RENTI AL/PL ATELE T lymphs 37 % notest ab. Not Available [facility] ([facility]) [address] [facility], [place], [address], 05/04/2023 12:13:58 05/03/19 24 05/04/2023 CBC WITH DIFFE RENTI AL/PL ATELE T monocytes 8 % notest ab. Not Available [facility] ([facility]) [address] [facility], [place], [address], 05/04/2023 12:13:58 05/03/19 24 05/04/2023 CBC WITH DIFFE RENTI AL/PL ATELE T eos 5 % notest ab. Not Available [facility] ([facility]) [address] [facility], [place], [address], 05/04/2023 12:13:58 05/03/19 24 05/04/2023 CBC WITH DIFFE RENTI AL/PL ATELE T basos 0 % notest ab. Not Available [facility] ([facility]) [address] [facility], [place], [address], 05/04/2023 12:13:58 05/03/19 24 05/04/2023 CBC WITH DIFFE RENTI AL/PL ATELE T neutrophils (absolute) 3.1 x10e3 /uL 1.4-7. 0 Not Available [facility] ([facility]) [address] [facility], [place], [address], 05/04/2023 12:13:58 05/03/19 24 05/04/2023 CBC WITH DIFFE RENTI AL/PL ATELE T lymphs (absolute) 2.2 x10e3 /uL 0.7-3. 1 Not Available [facility] ([facility]) [address] [facility], [place], [address], 05/04/2023 12:13:58 05/03/19 24 05/04/2023 CBC WITH DIFFE RENTI AL/PL ATELE T monocytes(ab solute) 0.5 x10e3 /uL 0.1-0. 9 Not Available [facility] ([facility]) [address] [facility], [place], [address], 05/04/2023 12:13:58 05/03/19 24 05/04/2023 CBC WITH DIFFE RENTI AL/PL ATELE T eos (absolute) 0.3 x10e3 /uL 0.0-0. 4 Not Available [facility] ([facility]) [address] [place], [address], 05/04/2023 12:13:58 05/03/19 24 05/04/2023 CBC WITH DIFFE RENTI AL/PL ATELE T baso (absolute) 0.0 x10e3 /uL 0.0-0. 2 Not Available [facility] ([facility]) [address] [place], [address], 05/04/2023 12:13:58 05/03/19 24 05/04/2023 CBC WITH DIFFE RENTI AL/PL ATELE T immature granulocytes 0 % notest ab. Not Available [facility] ([facility]) [address] [place], [address], 05/04/2023 12:13:58 05/03/19 24 05/04/2023 CBC WITH DIFFE RENTI AL/PL ATELE T immature grans (abs) 0.0 x10e3 /uL 0.0-0. 1 Not Available [facility] ([facility]) [address] [place], [address], 05/04/2023 12:13:58 04/12/19 25 04/13/2024 TSH+F REE T4 TSH 2.130 uIU/m L 0.450- 4.500 Not Available [facility] ([facility]) [address] [place], [address], 04/18/2024 15:08:00 04/12/19 25 04/13/2024 TSH+F REE T4 T4,free(dire ct) 1.06 NG/dL 0.82-1 .77 Not Available [facility] ([facility]) [address] [place], [address], 04/18/2024 15:08:00 04/12/19 25 04/13/2024 LIPID PANEL cholesterol, total 134 mg/dL 100-19 9 Not Available [facility] ([facility]) [address] [place], [address], 04/18/2024 15:08:02 04/12/19 25 04/13/2024 LIPID PANEL triglyceride s 44 mg/dL 0-149 Not Available [facility] ([facility]) [address] [place], [address], 04/18/2024 15:08:02 04/12/19 25 04/13/2024 LIPID PANEL HDL cholesterol 52 mg/dL >39 Not Available [facility] ([facility]) [address] [place], [address], 04/18/2024 15:08:02 04/12/19 25 04/13/2024 LIPID PANEL VLDL cholesterol noemí 10 mg/dL 5-40 Not Available [facility] ([facility]) [address] [facility], [place], [address], 04/18/2024 15:08:02 04/12/19 25 04/13/2024 LIPID PANEL LDL chol calc ([facility]) 72 mg/dL 0-99 Not Available [facility] ([facility]) [address] [place], [address], 04/18/2024 15:08:02 04/12/19 25 04/13/2024 COMP. METAB OLIC PANEL (14) glucose 75 mg/dL 70-99 Not Available [facility] ([facility]) [address] [place], [address], 04/18/2024 15:08:03 04/12/19 25 04/13/2024 COMP. METAB OLIC PANEL (14) BUN 13 mg/dL 6-24 Not Available [facility] ([facility]) [address] [place], [address], 04/18/2024 15:08:03 04/12/19 25 04/13/2024 COMP. METAB OLIC PANEL (14) creatinine 0.89 mg/dL 0.57-1 .00 Not Available [facility] ([facility]) [address] [place], [address], 04/18/2024 15:08:03 04/12/19 25 04/13/2024 COMP. METAB OLIC PANEL (14) eGFR 82 mL/mi n/1.7 3 >59 Not Available [facility] ([facility]) [address] [place], [address], 04/18/2024 15:08:03 04/12/19 25 04/13/2024 COMP. METAB OLIC PANEL (14) BUN/creatini ne ratio 15 9-23 Not Available [facility] ([facility]) [address] [facility] [place] [place], [address], 04/18/2024 15:08:03 04/12/19 25 04/13/2024 COMP. METAB OLIC PANEL (14) sodium 140 mmol/ L 134-14 4 Not Available [facility] ([facility]) [address] [facility] [place] [place], [address], 04/18/2024 15:08:03 04/12/19 25 04/13/2024 COMP. METAB OLIC PANEL (14) potassium 4.2 mmol/ L 3.5-5. 2 Not Available [facility] ([facility]) [address] [facility] [place] [place], [address], 04/18/2024 15:08:03 04/12/19 25 04/13/2024 COMP. METAB OLIC PANEL (14) chloride 106 mmol/ L 96-106 Not Available [facility] ([facility]) [address] [facility] [place] [place], [address], 04/18/2024 15:08:03 04/12/19 25 04/13/2024 COMP. METAB OLIC PANEL (14) carbon dioxide, total 21 mmol/ L 20-29 Not Available [facility] ([facility]) [address] [place], [address], 04/18/2024 15:08:03 04/12/19 25 04/13/2024 COMP. METAB OLIC PANEL (14) calcium 9.0 mg/dL 8.7-10 .2 Not Available [facility] ([facility]) [address] [place], [address], 04/18/2024 15:08:03 04/12/19 25 04/13/2024 COMP. METAB OLIC PANEL (14) protein, total 6.2 g/dL 6.0-8. 5 Not Available [facility] ([facility]) [address], [place], [address], 04/18/2024 15:08:03 04/12/19 25 04/13/2024 COMP. METAB OLIC PANEL (14) albumin 4.0 g/dL 3.9-4. 9 Not Available [facility] ([facility]) [address], [place], [address], 04/18/2024 15:08:03 04/12/19 25 04/13/2024 COMP. METAB OLIC PANEL (14) globulin, total 2.2 g/dL 1.5-4. 5 Not Available [facility] ([facility]) [address] [place], [address], 04/18/2024 15:08:03 04/12/19 25 04/13/2024 COMP. METAB OLIC PANEL (14) bilirubin, total <0.2 mg/dL 0.0-1. 2 Not Available [facility] ([facility]) [address], [place], [address], 04/18/2024 15:08:03 04/12/19 25 04/13/2024 COMP. METAB OLIC PANEL (14) alkaline phosphatase 78 IU/L 44-121 Not Available [facility] ([facility]) [address] [place], [address], 04/18/2024 15:08:03 04/12/19 25 04/13/2024 COMP. METAB OLIC PANEL (14) AST (SGOT) 11 IU/L 0-40 Not Available [facility] ([facility] [address] [facility] [place] [place], [address], 04/18/2024 15:08:03 04/12/19 25 04/13/2024 COMP. METAB OLIC PANEL (14) ALT (SGPT) 7 IU/L 0-32 Not Available [facility] ([facility]) [address] [facility], [place], [address], 04/18/2024 15:08:03 04/12/19 25 04/14/2024 HOMOC Y+MET HYL homocyst(E)i ne 10.1 umol/ L 0.0-14 .5 Not Available [facility] ([facility]) [address] [facility], [place], [address], 04/18/2024 15:08:04 04/12/19 25 04/18/2024 HOMOC Y+MET HYL methylmaloni c acid, serum 196 nmol/ L 0-378 Not Available [facility] ([facility]) [address] [facility], [place], [address], 04/18/2024 15:08:04 04/12/19 25 04/13/2024 VITAM IN B12+F OLATE vitamin B12 239 pg/mL 232-12 45 Not Available [facility] ([facility]) [address] [facility], [place], [address], 04/18/2024 15:08:04 04/12/19 25 04/13/2024 VITAM IN B12+F OLATE folate (folic acid), serum 8.6 NG/mL >3.0 A serum folat e lorna ntrat ion of less than 3.1 ng/mL is consi dered to repre sent clini noemí defic iency . Not Available [facility] ([facility]) [address] [facility], [place], [address], 04/18/2024 15:08:04 04/12/19 25 04/13/2024 HEMOG LOBIN A1C hemoglobin A1C 5.0 % 4.8-5. 6 Predi abete s: 5.7 - 6.4 Diabe suzan: >6.4 Glyce elisa contr ol for adult s with diabe suzan: <7.0 Not Available [facility] ([facility]) [address] [place], [address], 04/18/2024 15:08:06 04/12/19 25 04/13/2024 PROLA CTIN prolactin 42.1 NG/mL 4.8-33 .4 above high normal Not Available [facility] ([facility]) [address] [facility], [place], [address], 04/18/2024 15:08:07 04/12/19 25 04/12/2024 CBC WITH DIFFE RENTI AL/PL ATELE T WBC 5.8 x10e3 /uL 3.4-10 .8 Not Available [facility] ([facility]) [address] [facility], [place], [address], 04/18/2024 15:08:08 04/12/19 25 04/12/2024 CBC WITH DIFFE RENTI AL/PL ATELE T RBC 4.08 x10e6 /uL 3.77-5 .28 Not Available [facility] ([facility]) [address] [facility], [place], [address], 04/18/2024 15:08:08 04/12/19 25 04/12/2024 CBC WITH DIFFE RENTI AL/PL ATELE T hemoglobin 12.0 g/dL 11.1-1 5.9 Not Available [facility] ([facility]) [address] [facility], [place], [address], 04/18/2024 15:08:08 04/12/19 25 04/12/2024 CBC WITH DIFFE RENTI AL/PL ATELE T hematocrit 36.7 % 34.0-4 6.6 Not Available [facility] ([facility]) [address] [facility], [place], [address], 04/18/2024 15:08:08 04/12/19 25 04/12/2024 CBC WITH DIFFE RENTI AL/PL ATELE T MCV 90 fL 79-97 Not Available [facility] ([facility]) [address] [place], [address], 04/18/2024 15:08:08 04/12/19 25 04/12/2024 CBC WITH DIFFE RENTI AL/PL ATELE T MCH 29.4 pg 26.6-3 3.0 Not Available [facility] ([facility]) [address] [facility], [place], [address], 04/18/2024 15:08:08 04/12/19 25 04/12/2024 CBC WITH DIFFE RENTI AL/PL ATELE T MCHC 32.7 g/dL 31.5-3 5.7 Not Available [facility] ([facility]) [address] [facility], [place], [address], 04/18/2024 15:08:08 04/12/19 25 04/12/2024 CBC WITH DIFFE RENTI AL/PL ATELE T RDW 11.8 % 11.7-1 5.4 Not Available [facility] ([facility]) [address] [facility], [place], [address], 04/18/2024 15:08:08 04/12/19 25 04/12/2024 CBC WITH DIFFE RENTI AL/PL ATELE T platelets 282 x10e3 /uL 150-45 0 Not Available [facility] ([facility]) [address] [facility], [place], [address], 04/18/2024 15:08:08 04/12/19 25 04/12/2024 CBC WITH DIFFE RENTI AL/PL ATELE T neutrophils 55 % notest ab. Not Available [facility] ([facility]) [address] [place], [address], 04/18/2024 15:08:08 04/12/19 25 04/12/2024 CBC WITH DIFFE RENTI AL/PL ATELE T lymphs 34 % notest ab. Not Available [facility] ([facility]) [address] [facility], [place], [address], 04/18/2024 15:08:08 04/12/19 25 04/12/2024 CBC WITH DIFFE RENTI AL/PL ATELE T monocytes 7 % notest ab. Not Available [facility] ([facility]) [address] [facility], [place], [address], 04/18/2024 15:08:08 04/12/19 25 04/12/2024 CBC WITH DIFFE RENTI AL/PL ATELE T eos 4 % notest ab. Not Available [facility] ([facility]) [address] [facility], [place], [address], 04/18/2024 15:08:08 04/12/19 25 04/12/2024 CBC WITH DIFFE RENTI AL/PL ATELE T basos 0 % notest ab. Not Available [facility] ([facility]) [address] [facility], [place], [address], 04/18/2024 15:08:08 04/12/19 25 04/12/2024 CBC WITH DIFFE RENTI AL/PL ATELE T neutrophils (absolute) 3.1 x10e3 /uL 1.4-7. 0 Not Available [facility] ([facility]) [address] [place], [address], 04/18/2024 15:08:08 04/12/19 25 04/12/2024 CBC WITH DIFFE RENTI AL/PL ATELE T lymphs (absolute) 2.0 x10e3 /uL 0.7-3. 1 Not Available [facility] ([facility]) [address] [place], [address], 04/18/2024 15:08:08 04/12/19 25 04/12/2024 CBC WITH DIFFE RENTI AL/PL ATELE T monocytes(ab solute) 0.4 x10e3 /uL 0.1-0. 9 Not Available [facility] ([facility]) [address] [facility], [place], [address], 04/18/2024 15:08:08 04/12/19 25 04/12/2024 CBC WITH DIFFE RENTI AL/PL ATELE T eos (absolute) 0.2 x10e3 /uL 0.0-0. 4 Not Available [facility] ([facility]) [address] [facility], [place], [address], 04/18/2024 15:08:08 04/12/19 25 04/12/2024 CBC WITH DIFFE RENTI AL/PL ATELE T baso (absolute) 0.0 x10e3 /uL 0.0-0. 2 Not Available [facility] ([facility]) [address] [facility], [place], [address], 04/18/2024 15:08:08 04/12/19 25 04/12/2024 CBC WITH DIFFE RENTI AL/PL ATELE T immature granulocytes 0 % notest ab. Not Available [facility] ([facility]) [address] [place], [address], 04/18/2024 15:08:08 04/12/19 25 04/12/2024 CBC WITH DIFFE RENTI AL/PL ATELE T immature grans (abs) 0.0 x10e3 /uL 0.0-0. 1 Not Available [facility] ([facility]) [address] [facility], [place], [address], 04/18/2024 15:08:08 08/04/19 24 08/04/2023 MAMMO , scree katarina, digit al, bilat eral No observ ation record ed. [facility] [address], [place], [address], 10/17/2023 01:26:52 05/12/19 25 05/11/2024 MRI, brain + pitui tary, w/wo contr ast No observ ation record ed. [facility] [address], [place], [address], 05/12/2024 23:30:06 Result Notes None recorded. Problems Name Problem SNOMED Code Status Onset Date Resolution Date Notes Provider Name and Address Organization Details Recorded Time Body mass index 25-29 - overweight 583230294 Active 024 PATRICIO Coley Attn: Geri simms,[address] [facility], [place], [address], [facility] 4 01:25:53 Mixed anxiety and depressive disorder 751953689 Active 024 PATRICIO Coley Attn: Accountsiddharth simms,[address] [facility], [place], [address], [facility] 4 01:25:53 Long-term drug therapy Active 024 PATRICIO Coley Attn: Geri simms,[address] [facility], [place], [address], [facility] 4 01:26:38 Problem Notes None recorded. Procedures Surgical History Date Name Laterality Status Provider Name and Address Organization Details Recorded Time Repair of nasal septum completed Kely Springer MA [facility] 04/14/2023 14:15:18 Imaging Results Imaging Date Name Status LastModified by Organiz ation Details LastModified Time 08/04/2023 MAMMO, screening, digital, bilateral completed [address], [place], [address], 10/17/2023 01:26:52 05/11/2024 MRI, brain + pituitary, w/wo contrast completed [facility] [address], [place], [address], 05/12/2024 23:30:06 Procedure Notes None recorded. Medical Equipment None Reported. Allergies Allergen ID Allergen Name Allergen Category Reaction Reaction Severity Criticality Documentation Date Start Date Code Code System Note Provider Name and Address Organization Details Recorded Time 373302 Bactrim medicatio n hives Not available high 04/14/2023 77184 9 RxNorm Not Available Not Available Not Available 16660520 Ceclor medicatio n Not available Not available Not available 04/14/2023 44798 5 RxNorm Not Available Not Available Not [...] Updated DateTime 4 165.1 cm 30.8 kg/m2 98632.5 9 g 82 /min 18 /min 98 [...] 124 mm[Hg] 68 mm[Hg] Adeline Salazar MA [facility] 4 14:02:07 Date Recorded Body mass index (BMI) Body weight Provider Name and Address Organization Details Last Updated DateTime 10/04/2023 27.1 kg/m2 13283.56 g PATRICIO Coley Attn: Accounting,[address] [place], [address], [facility] 10/04/2023 14:19:43 Date Recorded Body height Provider Name an d Address Organization Details Last Updated DateTime 03/30/2024 165.1 cm Mekhi Mendez MA [facility] 03/30 13:56:10 Date Recorded Body mass index (BMI) Body weight Systolic blood pressure Diastolic blood pressure Provider Name and Address Organization Details Last Updated DateTime 03/30/2024 26.5 kg/m2 73375.19 g 130 mm[Hg] 80 mm[Hg] PATRICIO Coley Attn: Accounting ,[address] [place], [address] , [facility] 03/30/2024 14:25:01 Date Recorded Respiratory rate Oxygen saturation Oxygen saturation in Arterial blood by Pulse oximetry Heart rate Systolic blood pressure Diastolic blood pressure Provider Name and Address Organization Details Last Updated DateTime 18 /min 96 % 96 % 78 /min 138 mm[Hg] 88 mm[Hg] Kely Springer MA [facility] 5 14:02:49 Social History Question Answer Notes LastModified by Organizat ion Details LastModified Time Tobacco Smoking Status Never Smoker Kely Springer MA null, [facility] 04/14/2023 14:06:52 Do You Have An Advance [...] not available 04/14/2023 What Is Your Occupation? S[employer] [place] Information not available 04/14/2023 Are There Any [...] History Condition Response Coronary Artery Disease N Atrial Fibrillation N High Blood Pressure N Thyroid Problems N Kidney or Bladder Problems N Depression Y COPD N Blood Clots N GI Problems N Skin Problems N Anemia N Heart Attack ([place]) N Diabetes N Anxiety Disorder Y Muscle, Joint, or Bone Problems N Seizures/Epilepsy N Acid Reflux (GERD) N Cancer N Stroke N Allergies Y Asthma N High Cholesterol N Hepatitis N Liver Disease N Headaches N Osteoporosis N Heart Failure N Gynecological History Statement/Question Response Flow Moderate [...] 30 mcg/0.3 mL 3 completed CARLOS Knapp, [place] 03/30/2024 14:00:20 Influenza, split virus, trivalent, preservative 1 completed CARLOS Kn[place], [place] - [facility] 03/30/2024 14:00:20 Td (adult), 5 Lf tetanus toxoid, preservative free, adsorbed 6 completed CARLOS Knapp, [facility] 03/30/2024 14:00:20 Hep A, adult 9 completed CARLOS Knapp, [facility] 03/30/2024 14:00:20 Past Encounters Encounter ID Performer Location Encounter Start Date Encounter Closed Date Diagnosis/Indication Diagnosis SNOMED-CT Code Diagnosis ICD10 Code Diagnosis Note [id number] PATRICIO Coley [facility] [address] [place] [address] 04/14/2023 13:51:52 04/14/2023 14:42:03 Body mass index 30+ - obesity 394270785 Z68.30 pt is interested in short course of phentermin e therapy , that has worked well in the past to help spark weight loss prior to the summer. Bunion 052792984 M21.61 9 referral to podiatry for evaluation on treatment path/plan for bunion on foot that is symptomati c. Mixed anxi ety and depressive disorder 109937639 F41.8 refill on clonazepam and wellbutrin therapy. Thyroid di sorder screening 026340690 Z13.29 thyroid panel due. Cholesterol screening 27 5061570 Z13.220 fasting lipid panel due Diabetes m ellitus screening 868304051 Z13.1 annual a1c screening due Long-term drug therapy 329608902 Z79.899 routine cmp and cbc and b12/folate due [id number] PATRICIO Coley [facility] [place] [address] [place] [address] 10/04/2023 13:43:22 10/04/2023 14:26:56 Adult health examination 542211715 Z00.00 Annual wellness exam completed Mixed anxi ety and depressive disorder 370001956 F41.8 Stable on Wellbutrin XL 300 mg daily and clonazepam 0.5 mg 3 times a day as needed and Vraylar 1.5 mg daily which is from specialist . Body mass index 25-29 - overweight 738011222 Z68.27 Patient has lost weight on bound therapy and is very pleased with results. Long-term drug therapy 166004888 Z79.899 Labs are all currently up-to-date at this time [id number] PATRICIO Coley [facility] [place] [address] [place] [address] 03/30/2024 13:47:50 03/30/2024 14:39:31 Body mass index 25-29 - overweight 006375051 Z68.27 Patient has lost weight on bound therapy and is very pleased with results. She will be on maintenanc e Zepbound therapy every 1-2 weeks. Mixed anxi ety and depressive disorder 024898720 F41.8 Stable on Wellbutrin XL 300 mg daily and clonazepam 0.5 mg 3 times a day as needed and Vraylar 1.5 mg daily which is from specialist . Long-term drug therapy 340120078 Z79.899 Labs are all currently due Thyroid di sorder screening 777666724 Z13.29 thyroid panel due. Cholesterol screening 27 5599282 Z13.220 fasting lipid panel due Diabetes m ellitus screening 131240826 Z13.1 annual a1c screening due Bilateral discharge from nipples 2347247928 2632160 N64.52 Patient has seen specialist s in the past for this as well as her gynecologi st. Evaluation and workup was negative per her report. This has been something for over a couple of years. We are going to check an updated prolactin level. Patient has been encouraged to discuss this also with her gynecologi st Overweight 922087310 E66 .3 Health Concerns Section Related Observation LastModified by Organization Detai ls LastModified Time None Recorded Concern Status LastModified by Organization Details LastModified Time None Recorded Advance Directives Directive N: Payers Encounter Date Sequence Insurance Name Policy Number Policy Rutledge Covered Member ID Rutledge Member ID Guarantor Name 04/14/2023 1 [facility] (MEDICARE REPLACEMENT/A DVANTAGE - HMO) [id number] Jaci Naqvi [id number] Jaci Naqvi 10/04/2023 1 [place] [id number] Nahid Naqvi [id number] Jaci Naqvi 03/30/2024 1 [place] [id number] Nahid Naqvi [id number] Jaci Naqvi Notes Date Note Type Note [...] that improvement. PATRICIO Coley Attn: Accounting,[address] [place], [address], [facility] 04/25/2023 16:19:13 10/04/2023 text/html Anxiety/Depressi on Reported [...] weight loss PATRICIO Coley Attn: Accounting[address] [place], [address], [facility] 10/17/2023 01:27:39 03/30/2024 text/html [...] maintenance dosing PATRICIO Coley Attn: Accounting,[address] [facility], [place], [address], [facility] 04/16/2024 14:17:28 OBGyn Episode No OBEpisode recorded.
--- OUTSIDE RECORDS SUMMARY | 2024-06-08 01:38 | XMS_ITS | Clinical Summary ---
Author Organization [facility] Address [address] [address] [place] [address] Phone Care Team Providers Care Bearing Inspector Name Role Phone Unavailable Primary Care Provider [...] 120 mL 3 12:40 PM CDT 12/06/19 Active albuterol sulfate HFA 90 mcg/actuation aerosol [...] TAKE DIRECTED 21 Tablet 3 11:50 AM MANAGER OF OPERATIONS 01/06/20 23 Active fluconazole (DIFLUCAN) 150 mg tablet TAKE ONE TABLET BY MOUTH A SINGLE DOSE THEN REPEAT IN 72 HOURS. 2 Tablet 3 12:38 PM MANAGER OF OPERATIONS 01/09/20 23 Active azelastine (ASTELIN) 137 mcg/actuation nasal spray Administer 1-2 Sprays in each nostril every 12 hours. 30 mL 3 6:41 PM MANAGER OF OPERATIONS 01/28/20 23 Active clonazePAM (KlonoPIN) 0.5 mg Tablet Take 1 Tablet (0.5 mg) by mouth 3 times daily as needed. 90 Tablet 1 4 12:45 PM MANAGER OF OPERATIONS 02/02/20 23 Active predniSONE (DELTASONE) 5 mg tablet Take 1 Tablet (5 mg) by mouth daily in the morning. 7 Tablet 4 7:48 PM MANAGER OF OPERATIONS 04/06/19 24 Active benzonatate (TESSALON) 100 mg capsule Take 1 Capsule (100 mg) by mouth 3 times daily. 10 Capsule 4 11:29 AM MANAGER OF OPERATIONS 04/08/19 24 Active phentermine (ADIPEX P) 37.5 mg tablet Take 1 Tablet (37.5 mg) by mouth daily in the morning. 30 Tablet 1 4 12:32 PM CDT 04/14/19 24 Active tirzepatide, weight loss, (Zepbound) 5 mg/0.5 mL Pen Injector Inject 5 mg by subcutaneous injection every 7 days. 2 mL 2 5 12:03 PM MANAGER OF OPERATIONS 08/20/19 24 Active clonazePAM (KlonoPIN) 0.5 mg Tablet Take 1 Tablet (0.5 mg) by mouth 3 times daily as needed. 90 Tablet 3 4 3:23 PM MANAGER OF OPERATIONS 09/24/19 24 Active tirzepatide, weight loss, (Zepbound) 7.5 mg/0.5 mL Pen Injector Inject 7.5 mg every week by subcutaneous route as directed. 2 mL 1 4 11:14 AM MANAGER OF OPERATIONS 11/25/19 24 Active ofloxacin (OCUFLOX) 0.3 % solution INSTILL 1 DROP INTO AFFECTED EYE(S) BY OPHTHALMIC ROUTE 4 TIMES PER DAY x 5-7 days 10 mL 4 11:50 AM MANAGER OF OPERATIONS 01/27/20 24 Active clonazePAM (KlonoPIN) 0.5 mg Tablet Take 1 Tablet (0.5 mg) by mouth 3 times daily as needed. 90 Tablet 3 5 5:40 PM CDT 02/27/19 25 Active valACYclovir (VALTREX) 500 mg tablet Take 1-2 Tablets (500-1,000 mg) by mouth 2 times daily as needed as directed. 90 Tablet 2 5 12:03 PM MANAGER OF OPERATIONS 02/27/19 25 Active buPROPion HCL (WELLBUTRIN XL) 300 mg Extended Release 24 hour tablet Take 1 Tablet (300 mg) by mouth daily. 90 Tablet 3 5 1:20 PM CDT 04/28/19 25 Active tretinoin (RETIN-A) 0.1 % Cream Apply a small amount to affected area every night 45 Gram 7 5 5:40 PM CDT 05/16/19 25 Active tirzepatide, weight loss, (Zepbound) 10 mg/0.5 mL Pen Injector Inject 10 mg by subcutaneous injection every 7 days. 2 mL 5 10:33 AM CDT 05/17/19 25 Active cariprazine (Vraylar) 1.5 mg Capsule capsule Take 1 Capsule (1.5 mg) by mouth daily. 30 Capsule 5 5 5:40 PM CDT 06/03/19 25 Active cariprazine (Vraylar) 1.5 mg Capsule capsule Take 1 Capsule (1.5 mg) by mouth daily. 30 Capsule 5 5 1:20 PM CDT 11/14/19 24 025 Discontinued(R eorder) tirzepatide, weight loss, (Zepbound) 5 mg/0.5 mL Pen Injector INJECT 0.5 ML EVERY WEEK UNDER THE SKIN DIRECTED 2 mL 1 4 11:50 AM MANAGER OF OPERATIONS 01/26/20 24 025 Discontinued tirzepatide, weight loss, [...] Orientation Not on file Plan of Treatment Upcoming Encounters Date Type Department Care Team (Late st Contact Info) Description 06/29/2024 1:00 PM CDT Appointment [facility] [place] [facility] [address] [place] [address] [place]ayna [place] [address] [address] Health Maintenance Due Date Last Done Comments [...] Plans [facility], [employer] [facility]
--- OUTSIDE RECORDS SUMMARY | 2024-06-08 01:39 | XMS_ITS | Data Portability ---
Author Organization [facility] [employer], Main Office Address [address] [place] [address] Assessment No assessment recorded. Plan of Treatment Reminders Order Date Submit Date Provider Last Modified By Organization Details Last Modified Time Details Appointments None recorded. Lab lipid panel, serum 2022 023 [email or web address] [facility], [address], [address], 4 18:04:05 CBC w/ auto diff 2022 023 [facility], [address] [place] [address], [address], 4 18:04:04 CMP, serum or plasma 2022 023 [email or web address] [facility], [address] [place] [address], [address], 4 18:04:04 TSH + free T4, serum 2022 023 [facility], [address] [place] [address], [address], 4 18:04:04 vitamin B12, serum 2022 023 [email or web address] [facility], [address] [address], [place], [address], 4 18:04:04 HbA1c (hemoglobin A1c), blood 2022 023 [email or web address] [facility], [address] [place] [address], [place], [address], 4 18:04:05 Referral None recorded. Procedures None recorded. Surgeries None recorded. Imaging None recorded. Medication Orders Medrol (Willy) 4 mg tablets in a dose pack [email or web address] [facility], [address] , [place], [place], [id number], 3 13:29:13 levofloxaci n 500 mg tablet 2022 0[address] [email or web address] [facility], [address] , [place], [place], [id number], 3 13:29:11 Patient TargetsNo targets recorded. Patient InstructionsNo instructions recorded. Reason for Referral None Reported. Results Created Date Observation Date Name Description Value Unit Range Abnormal Flag Note LastModifiedBy Organization Detail LastModifiedTime 03/12/19 22 03/13/2021 HEMOG LOBIN A1C hemoglobin A1C 5.5 % 4.8-5. 6 Predi abete s: 5.7 - 6.4 Diabe suzan: >6.4 Glyce elisa contr ol for adult s with diabe suzan: <7.0 Not Available [facility] ([facility]) [address] [place], [address], 03/13/2021 05:09:54 03/12/1903/13/2021 LIPID PANEL W/ CHOL/ HDL RATIO cholesterol, total 168 mg/dL 100-19 9 Not Available [facility] ([facility]) [address] [place], [address], 03/13/2021 05:09:53 03/12/19 22 03/13/2021 LIPID PANEL W/ CHOL/ HDL RATIO triglyceride s 49 mg/dL 0-149 Not Available [facility] ([facility]) [address] [place], [address], 03/13/2021 05:09:53 03/12/19 22 03/13/2021 LIPID PANEL W/ CHOL/ HDL RATIO HDL cholesterol 69 mg/dL >39 Not Available [facility] ([facility]) [address] [place], [address], 03/13/2021 05:09:53 03/12/19 22 03/13/2021 LIPID PANEL W/ CHOL/ HDL RATIO VLDL cholesterol noemí 10 mg/dL 5-40 Not Available [facility] ([facility]) [address] [place], [address], 03/13/2021 05:09:53 03/12/19 22 03/13/2021 LIPID PANEL W/ CHOL/ HDL RATIO LDL chol calc ([facility]) 89 mg/dL 0-99 Not Available [facility] ([facility]) [address] [place], [address], 03/13/2021 05:09:53 03/12/19 22 03/13/2021 LIPID PANEL W/ CHOL/ HDL 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 chol/HDL ratio 2.4 ratio 0.0-4. 4 T. Chol/ HDL Ratio Men Women 1/2 Avg.R isk 3.4 3.3 Avg.R isk 5.0 4.4 2X Avg.R isk 9.6 7.1 3X Avg.R isk 23.4 11.0 Not Available [facility] ([facility]) [address] [place], [address], 03/13/2021 05:09:53 03/12/19 22 03/13/2021 COMP. METAB OLIC PANEL (14) glucose 97 mg/dL 65-99 Not Available [facility] ([facility]) [address] [place], [address], 03/13/2021 05:09:53 03/12/19 22 03/13/2021 COMP. METAB OLIC PANEL (14) BUN 15 mg/dL 6-20 Not Available [facility] ([facility]) [address] [facility], [place], [address], 03/13/2021 05:09:53 03/12/19 22 03/13/2021 COMP. METAB OLIC PANEL (14) creatinine 0.97 mg/dL 0.57-1 .00 Not Available [facility] ([facility]) [address] [facility], [place], [address], 03/13/2021 05:09:53 03/12/19 22 03/13/2021 COMP. METAB OLIC PANEL (14) eGFR if nonafricn AM 74 mL/mi n/1.7 3 >59 Not Available [facility] ([facility]) [address] [facility], [place], [address], 03/13/2021 05:09:53 03/12/19 22 03/13/2021 COMP. METAB OLIC PANEL (14) eGFR if africn AM 85 mL/mi n/1.7 3 >59 In accor dance with recom menda tions from the NKF-A SN Task force , Mo is in the proce ss of updat ing its eGFR calcu latio n to the 2020 CKD-E PI creat inine equat ion that estim ates kidne y funct ion witho ut a race varia ble. Not Available [facility] ([facility]) [address] [facility], [place], [address], 03/13/2021 05:09:53 03/12/19 22 03/13/2021 COMP. METAB OLIC PANEL (14) BUN/creatini ne ratio 15 9-23 Not Available [facility] ([facility]) [address] [facility], [place], [address], 03/13/2021 05:09:53 03/12/19 22 03/13/2021 COMP. METAB OLIC PANEL (14) sodium 139 mmol/ L 134-14 4 Not Available [facility] ([facility]) [address] [facility] [place], [address], 03/13/2021 05:09:53 03/12/19 22 03/13/2021 COMP. METAB OLIC PANEL (14) potassium 4.1 mmol/ L 3.5-5. 2 Not Available [facility] ([facility]) [address] [facility] [place], [address], 03/13/2021 05:09:53 03/12/19 22 03/13/2021 COMP. METAB OLIC PANEL (14) chloride 102 mmol/ L 96-106 Not Available [facility] ([facility]) [address] [facility] [place], [address], 03/13/2021 05:09:53 03/12/19 22 03/13/2021 COMP. METAB OLIC PANEL (14) carbon dioxide, total 25 mmol/ L 20-29 Not Available [facility] ([facility]) [address] [facility] [place], [address], 03/13/2021 05:09:53 03/12/19 22 03/13/2021 COMP. METAB OLIC PANEL (14) calcium 9.3 mg/dL 8.7-10 .2 Not Available [facility] ([facility]) [address] [facility] [place], [address], 03/13/2021 05:09:53 03/12/19 22 03/13/2021 COMP. METAB OLIC PANEL (14) protein, total 6.4 g/dL 6.0-8. 5 Not Available [facility] ([facility]) [address] [facility] [place], [address], 03/13/2021 05:09:53 03/12/19 22 03/13/2021 COMP. METAB OLIC PANEL (14) albumin 4.4 g/dL 3.8-4. 8 Not Available [facility] ([facility]) [address] [facility] [place], [address], 03/13/2021 05:09:53 03/12/19 22 03/13/2021 COMP. METAB OLIC PANEL (14) globulin, total 2.0 g/dL 1.5-4. 5 Not Available [facility] ([facility]) [address] [facility] [place], [address], 03/13/2021 05:09:53 03/12/19 22 03/13/2021 COMP. METAB OLIC PANEL (14) A/G ratio 2.2 1.2-2. 2 Not Available [facility] ([facility]) [address] [place], [address], 03/13/2021 05:09:53 03/12/19 22 03/13/2021 COMP. METAB OLIC PANEL (14) bilirubin, total 0.4 mg/dL 0.0-1. 2 Not Available [facility] ([facility]) [address] [facility] [place], [address], 03/13/2021 05:09:53 03/12/19 22 03/13/2021 COMP. METAB OLIC PANEL (14) alkaline phosphatase 82 IU/L 44-121 Not Available [facility] ([facility]) [address] [facility] [place], [address], 03/13/2021 05:09:53 03/12/19 22 03/13/2021 COMP. METAB OLIC PANEL (14) AST (SGOT) 15 IU/L 0-40 Not Available [facility] ([facility]) [address] [facility] [place], [address], 03/13/2021 05:09:53 03/12/19 22 03/13/2021 COMP. METAB OLIC PANEL (14) ALT (SGPT) 13 IU/L 0-32 Not Available [facility] ([facility]) [address] [facility], [place], [address], 03/13/2021 05:09:53 03/12/19 22 03/13/2021 CBC WITH DIFFE RENTI AL/PL ATELE T WBC 7.0 x10e3 /uL 3.4-10 .8 Not Available [facility] ([facility]) [address] [facility], [place], [address], 03/13/2021 05:09:52 03/12/19 22 03/13/2021 CBC WITH DIFFE RENTI AL/PL ATELE T RBC 4.58 x10e6 /uL 3.77-5 .28 Not Available [facility] ([facility]) [address] [facility], [place], [address], 03/13/2021 05:09:52 03/12/19 22 03/13/2021 CBC WITH DIFFE RENTI AL/PL ATELE T hemoglobin 13.2 g/dL 11.1-1 5.9 Not Available [facility] ([facility]) [address] [place], [address], 03/13/2021 05:09:52 03/12/19 22 03/13/2021 CBC WITH DIFFE RENTI AL/PL ATELE T hematocrit 40.8 % 34.0-4 6.6 Not Available [facility] ([facility]) [address] [place], [address], 03/13/2021 05:09:52 03/12/19 22 03/13/2021 CBC WITH DIFFE RENTI AL/PL ATELE T MCV 89 fL 79-97 Not Available [facility] ([facility]) [address] [facility], [place], [address], 03/13/2021 05:09:52 03/12/19 22 03/13/2021 CBC WITH DIFFE RENTI AL/PL ATELE T MCH 28.8 pg 26.6-3 3.0 Not Available [facility] ([facility]) [address] [facility], [place], [address], 03/13/2021 05:09:52 03/12/19 22 03/13/2021 CBC WITH DIFFE RENTI AL/PL ATELE T MCHC 32.4 g/dL 31.5-3 5.7 Not Available [facility] ([facility]) [address] [facility], [place], [address], 03/13/2021 05:09:52 03/12/19 22 03/13/2021 CBC WITH DIFFE RENTI AL/PL ATELE T RDW 12.2 % 11.7-1 5.4 Not Available [facility] ([facility]) [address] [facility], [place], [address], 03/13/2021 05:09:52 03/12/19 22 03/13/2021 CBC WITH DIFFE RENTI AL/PL ATELE T platelets 319 x10e3 /uL 150-45 0 Not Available [facility] ([facility]) [address] [facility], [place], [address], 03/13/2021 05:09:52 03/12/19 22 03/13/2021 CBC WITH DIFFE RENTI AL/PL ATELE T neutrophils 55 % not estab. Not Available [facility] ([facility]) [address] [place], [address], 03/13/2021 05:09:52 03/12/19 22 03/13/2021 CBC WITH DIFFE RENTI AL/PL ATELE T lymphs 33 % not estab. Not Available [facility] ([facility]) [address] [place], [address], 03/13/2021 05:09:52 03/12/19 22 03/13/2021 CBC WITH DIFFE RENTI AL/PL ATELE T monocytes 8 % not estab. Not Available [facility] ([facility]) [address] [place], [address], 03/13/2021 05:09:52 03/12/19 22 03/13/2021 CBC WITH DIFFE RENTI AL/PL ATELE T eos 4 % not estab. Not Available [facility] ([facility]) [address] [facility], [place], [address], 03/13/2021 05:09:52 03/12/19 22 03/13/2021 CBC WITH DIFFE RENTI AL/PL ATELE T basos 0 % not estab. Not Available [facility] ([facility]) [address] [place], [address], 03/13/2021 05:09:52 03/12/19 22 03/13/2021 CBC WITH DIFFE RENTI AL/PL ATELE T immature cells [employer] sales [employer] Not Available [facility] ([facility]) [address] [place], [address], 03/13/2021 05:09:52 03/12/19 22 03/13/2021 CBC WITH DIFFE RENTI AL/PL ATELE T neutrophils (absolute) 3.8 x10e3 /uL 1.4-7. 0 Not Available [facility] ([facility]) [address] [place], [address], 03/13/2021 05:09:52 03/12/19 22 03/13/2021 CBC WITH DIFFE RENTI AL/PL ATELE T lymphs (absolute) 2.3 x10e3 /uL 0.7-3. 1 Not Available [facility] ([facility]) [address] [place], [address], 03/13/2021 05:09:52 03/12/19 22 03/13/2021 CBC WITH DIFFE RENTI AL/PL ATELE T monocytes(ab solute) 0.6 x10e3 /uL 0.1-0. 9 Not Available [facility] ([facility]) [address] [place], [address], 03/13/2021 05:09:52 03/12/19 22 03/13/2021 CBC WITH DIFFE RENTI AL/PL ATELE T eos (absolute) 0.3 x10e3 /uL 0.0-0. 4 Not Available [facility] ([facility]) [address] [facility], [place], [address], 03/13/2021 05:09:52 03/12/19 22 03/13/2021 CBC WITH DIFFE RENTI AL/PL ATELE T baso (absolute) 0.0 x10e3 /uL 0.0-0. 2 Not Available [facility] ([facility]) [address] [facility], [place], [address], 03/13/2021 05:09:52 03/12/19 22 03/13/2021 CBC WITH DIFFE RENTI AL/PL ATELE T immature granulocytes 0 % not estab. Not Available [facility] ([facility]) [address] [facility], [place], [address], 03/13/2021 05:09:52 03/12/19 22 03/13/2021 CBC WITH DIFFE RENTI AL/PL ATELE T immature grans (abs) 0.0 x10e3 /uL 0.0-0. 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 Not Available [facility] ([facility]) [address] [place], [address], 03/13/2021 05:09:52 03/12/19 22 03/13/2021 TSH+F REE T4 TSH 1.990 uIU/m L 0.450- 4.500 Not Available [facility] ([facility]) [address] [facility], [place], [address], 03/13/2021 05:09:52 03/12/19 22 03/13/2021 TSH+F REE T4 T4,free(dire ct) 0.98 NG/dL 0.82-1 .77 Not Available [facility] ([facility]) [address] [facility], [place], [address], 03/13/2021 05:09:52 03/12/1903/13/2021 URINA LYSIS , ROUTI NE W/RFX specific gravity 1.029 1.005- 1.030 Not Available [facility] ([facility]) [address] [place], [address], 03/13/2021 05:09:51 03/12/19 22 03/13/2021 URINA LYSIS , ROUTI NE W/RFX pH 5.5 5.0-7. 5 Not Available [facility] ([facility]) [address] [place], [address], 03/13/2021 05:09:51 03/12/1903/13/2021 URINA LYSIS , ROUTI NE W/RFX urine-color yellow yellow Not Available [facility] ([facility]) [address] [place], [address], 03/13/2021 05:09:51 03/12/1903/13/2021 URINA LYSIS , ROUTI NE W/RFX appearance turbid clear abnormal Not Available [facility] ([facility]) [address] [place], [address], 03/13/2021 05:09:51 03/12/1903/13/2021 URINA LYSIS , ROUTI NE W/RFX WBC esterase negati ve negati ve Not Available [facility] ([facility]) [address] [place], [address], 03/13/2021 05:09:51 03/12/19 22 03/13/2021 URINA LYSIS , ROUTI NE W/RFX protein trace negati ve/tra ce Not Available [facility] ([facility]) [address] [place], [address], 03/13/2021 05:09:51 03/12/19 22 03/13/2021 URINA LYSIS , ROUTI NE W/RFX glucose negati ve negati ve Not Available [facility] ([facility]) [address] [place], [address], 03/13/2021 05:09:51 03/12/19 22 03/13/2021 URINA LYSIS , ROUTI NE W/RFX ketones trace negati ve abnormal Not Available [facility] ([facility]) [address] [place], [address], 03/13/2021 05:09:51 03/12/19 22 03/13/2021 URINA LYSIS , ROUTI NE W/RFX occult blood negati ve negati ve Not Available [facility] ([facility]) [address] [place], [address], 03/13/2021 05:09:51 03/12/19 22 03/13/2021 URINA LYSIS , ROUTI NE W/RFX bilirubin negati ve negati ve Not Available [facility] ([facility]) [address] [place], [address], 03/13/2021 05:09:51 03/12/19 22 03/13/2021 URINA LYSIS , ROUTI NE W/RFX urobilinogen ,semi-qn 0.2 mg/dL 0.2-1. 0 Not Available [facility] ([facility]) [address] [facility], [place], [address], 03/13/2021 05:09:51 03/12/19 22 03/13/2021 URINA LYSIS , ROUTI NE W/RFX nitrite, urine negati ve negati ve Not Available [facility] ([facility]) [address] [facility], [place], [address], 03/13/2021 05:09:51 03/12/19 22 03/13/2021 URINA LYSIS , ROUTI NE W/RFX microscopic examination commen t Micro scopi c not indic ated and not perfo rmed. Not Available [facility] ([facility]) [address] [facility], [place], [address], 03/13/2021 05:09:51 12/17/19 21 12/10/2020 MAMMO , diagn ostic , digit al, bilat eral No observ ation record ed. [id number] [facility] [address], [place], [address], 04/15/2022 21:54:31 09/03/19 23 06/10/2022 MAMMO , scree katarina, digit al, bilat eral No observ ation record ed. [email or web address] [facility] [address], [place], [address], 09/13/2022 17:48:37 02/25/19 24 02/01/2023 CT, sinus es, w/o contr ast No observ ation record ed. [facility] [address] [place], [address], 02/26/2023 14:47:35 Result Notes None recorded. Problems Name Problem SNOMED Code Status Onset Date Resolution Date Notes Provider Name and Address Organization Details Recorded Time Mastodynia of bilateral breasts 5438155366136 9109 Active 2021 Not Available [employer] 21:53:38 Mixed anxiety and depressive disorder 868036225 Active 2020 Not Available [facility] 3 21:53:39 Lower urinary tract symptoms 915057086 Active 2021 Not Available [facility] 3 21:53:39 Weight gain 4692124 Active 2021 Not Available [facility] 3 21:53:39 Acute sinusitis 82808979 Active 2022 PATRICIO Coley [address], [place], [address] , [employer] 3 11:16:22 Herpes labialis 1394564 Active 2022 PATRICIO Coley [address], [place], [address] , [employer] 3 10:57:11 Cough 84419261 Active 2022 PATRICIO Coley [address], [place], [address] , [employer] 3 13:13:34 Acute maxillary sinusitis 97925303 Active 2022 PATRICIO Coley [address], [place], [address] , [employer] 3 10:51:40 Major depressive disorder 271112257 Active 2022 PATRICIO Coley [address], [place], [address] , [employer] 3 13:55:40 Notes:Pos COVID-19 08/13/21 Problem Notes None recorded. Procedures Surgical History Date Name Laterality Status Provider Name and Address Organization Details Recorded Time 02/15/19 Reconstruction of nose completed Not Available [facility] 04/15/2022 21:53:09 02/15/19 loop electrosurgical excision procedure completed Not Available [facility] 04/15/2022 21:53:09 Imaging Results Imaging Date Name Status LastModified by [facility] Details LastModified Time 12/10/2020 MAMMO, diagnostic, digital, bilateral completed [id number] [facility] [address], [place], [address], 04/15/2022 21:54:31 06/10/2022 MAMMO, screening, digital, bilateral completed [email or web address] [facility] [address], [place], [address], 09/13/2022 17:48:37 02/01/2023 CT, sinuses, w/o contrast completed [facility] [address] [facility], [place], [address], 02/26/2023 14:47:35 Procedure Notes None recorded. Medical Equipment None Reported. Allergies Allergen ID Allergen Name Allergen Category Reaction Reaction Severity Criticality Documentation Date Start Date Code Code System Note Provider Name and Address Organization Details Recorded Time 99490 Ceclor medicatio n other Not available Not available 04/15/2022 09171 5 RxNorm Not Available [facility] 3 21:54:28 85242 Bactrim medicatio n hives Not available Not available 04/15/2022 85651 9 RxNorm Not Available [facility] 3 21:54:28 Medications Name Sig Start Date Stop Date Status Note LastModified by Organization Details LastModified Time tretinoin 0.1 % topical cream active Not Available Not Available Not Available doxycycline hyclate 100 mg capsule active Not Available Not Available N ot Available azithromyci n 250 mg tablet TAKE 2 TABLETS (500 MG) BY ORAL ROUTE ONCE DAILY FOR 1 DAY THEN 1 TABLET (250 MG) BY ORAL ROUTE ONCE DAILY FOR 4 DAYS 09/01 completed Not Available Not Available Not Available fluconazole 150 mg tablet active Not Available Not Available Not Available benzonatate 200 mg capsule Take 1 capsule 3 times a day by oral route. 01/05 completed Not Available Not Available Not Available Claritin 10 mg tablet Take 1 tablet every day by oral route. 2019 active Not Available Not Available Not Avai lable prednisone 20 mg tablet TK 1 T PO D FOR 5 DAYS 01/05 completed Not Available Not Available Not Available clonazepam 0.5 mg tablet Take 1 Tablet (0.5 mg) by mouth 3 times daily as needed. active Not Available Not Available No t Available phentermine 37.5 mg tablet Take 1 Tablet (37.5 mg) by mouth daily. 01/05 completed Not Available Not Available Not Available valacyclovi r 500 mg tablet Take 1-2 Tablets by mouth 2 times daily as needed as directed. 2023 active Not Available Not Available Not Avai lable benzonatate 100 mg capsule TK 1 C PO Q 8 H PRN 01/05 completed Not Available Not Available Not Available doxycycline monohydrate 100 mg capsule Take 1 capsule twice a day by oral route with meals. active Not Available Not Available No t Available acyclovir 5 % topical ointment APPLY TO THE AFFECTED AREA by nose BY TOPICAL ROUTE EVERY 3 HOURS 6 TIMES PER DAY 08/29 completed Not Available Not Available Not Available codeine 10 mg-guaifene sin 100 mg/5 mL oral liquid Take 10 mL as needed by oral route at bedtime. 01/05 completed Not Available Not Available Not Available mupirocin 2 % topical ointment 01/05 completed Not Available Not Available Not Available azelastine 137 mcg (0.1 %) nasal spray active Not Available Not Available Not Available levofloxaci n 500 mg tablet Take 1 tablet every 24 hours by oral route for 7 days. 01/28 completed Not Available Not Available Not Available methylpredn isolone 4 mg tablets in a dose pack take as directed 01/28 completed Not Available Not Available Not Available albuterol sulfate HFA 90 mcg/actuati on aerosol inhaler INHALE 2 PUFFS PO Q 4 H PRN 01/05 completed Not Available Not Available Not Available amoxicillin 875 mg-potassiu m clavulanate 125 mg tablet 01/05 completed Not Available Not Available Not Available Zovirax 5 % topical cream APPLY TO THE AFFECTED AREA(S) BY TOPICAL ROUTE 5 TIMES PER DAY 06/04 completed Not Available Not Available Not Available bupropion HCl XL 300 mg 24 hr tablet, extended release TAKE ONE TABLET BY MOUTH ONCE DAILY active Not Available Not Available No t Available bupropion HCl XL 150 mg 24 hr tablet, extended release 08/29 completed Not Available Not Available Not Available nitrofurant oin monohydrate /macrocryst als 100 mg capsule Take 1 capsule every 12 hours by oral route. 03/03 completed Not Available Not Available Not Available Flonase Allergy Relief 50 mcg/actuati on nasal spray,suspe nsion Maxwell 1 spray every day by intranasa l route. 2019 active Not Available Not Available Not Avai lable Vraylar 1.5 mg capsule Take 1 Capsule (1.5 mg) by mouth daily. active Not Available Not Available No t Available Panraven COVID-19 Vaccine (PF) 30 mcg/0.3 mL IM susp (purple) ADMINISTE R 0.3ML IN THE MUSCLE DIRECTED 06/03 completed Not Available Not Available Not Available Wegovy 0.25 mg/0.5 mL subcutaneou s pen injector Inject 0.25 mg every week by subcutane ous route as directed. 05/21 completed Not Available Not Available Not Available Vitals Date Recorded Body mass index (BMI) Body height Oxygen saturation Oxygen saturation in Arterial blood by Pulse oximetry Heart rate Respiratory rate Body temperature Body weight Systolic blood pressure Diastolic blood pressure Provider Name and Address Organization Details Last Updated DateTime 1 28.4 kg/m2 165.1 cm 98 % 98 % 81 /min 16 /min 97.8 [degF] 13714.1 4 g 122 mm[Hg] 80 mm[Hg] Not Available [facility] 3 21:53:15 Date Recorded Body mass index (BMI) Body height Oxygen saturation Oxygen saturation in Arterial blood by Pulse oximetry Heart rate Respiratory rate Body temperature Body weight Systolic blood pressure Diastolic blood pressure Provider Name and Address Organization Details Last Updated DateTime 2 27.5 kg/m2 165.1 cm 98 % 98 % 78 /min 16 /min 98.3 [degF] 34304.4 6 g 122 mm[Hg] 80 mm[Hg] Not Available [facility] [facility] 3 21:53:15 Date Recorded Body mass index (BMI) Body height Oxygen saturation Oxygen saturation in Arterial blood by Pulse oximetry Heart rate Respiratory rate Body temperature Body weight Systolic blood pressure Diastolic blood pressure Systolic blood pressure Diastolic blood pressure Provider Name and Address Organization Details Last Updated DateTime 3 30 kg/m2 165.1 cm 97 % 97 % 86 /min 16 /min 98.1 [degF] 67173.6 3 g 128 mm[Hg] 82 mm[Hg] 120 mm[Hg] 80 mm[Hg] Not Available [facility] 21:53:15 Date Recorded Body height Body temperature Body mass index (BMI) Body weight Heart rate Oxygen saturation Oxygen saturation in Arterial blood by Pulse oximetry Systolic blood pressure Diastolic blood pressure Provider Name and Address Organization Details Last Updated DateTime 165.1 cm 98 [degF] 27.6 kg/m2 67756.3 3 g 68 /min 98 % 98 % 112 mm[Hg] 60 mm[Hg] Jo Ann Ramsey RN [facility] [employer] 3 10:30:24 Date Recorded Body height Provider Name an d Address Organization Details Last Updated DateTime 01/05/2023 165.1 cm JUSTINE Dean [facility] [employer] 01/05/2023 10:29:06 Date Recorded Body mass index (BMI) Body weight Heart rate Oxygen saturation Oxygen saturation in Arterial blood by Pulse oximetry Provider Name and Address Organization Details Last Updated DateTime 01/05/2023 29 kg/m2 89236.07 g 86 /min 98 % 98 % Heather Arrieta MA [place] [employer] [employer] 3 10:34:06 Date Recorded Systolic blood pressure Diastolic blood pressure Provider Name and Address Organization Details Last Updated DateTime 01/05/2023 110 mm[Hg] 70 mm[Hg] PATRICIO Coley [address] [place] [address], [id number], [facility] [employer] 01/05/2023 10:52:14 Social History Question Answer Notes LastModified by Organizat ion Details LastModified Time Tobacco Smoking Status Never Smoker Not Available [facility] 04/15/2022 21:53:03 What Is Your Level Of Alcohol Consumption? Occasional [id number] Information not available 04/15/2022 What Is Your Level Of Caffeine Consumption? Occasional [id number] Information not available 04/15/2022 How Much Tobacco Do You Chew? None [id number].[id number] Information not available 04/15/2022 In The 14 Days Before Symptom Onset, Have You Had Close Contact With A Laboratory-confir med COVID-19 While That Case Was Ill? No [id number] Information not available 04/15/2022 In The 14 Days Before Symptom Onset, Have You Had Close Contact With A Person Who Is Under Investigation For COVID-19 While That Person Was Ill? No [id number] Information not available 04/15/2022 What Type Of Diet Are You Following? REGULAR [id number] Information not available 04/15/2022 Which Illicit Or Recreational Drugs Have You Used? None [id number].[id number] Information not available 04/15/2022 Do You Or Have You Ever Used E-cigarettes Or Vape? Never Used Electronic Cigarettes [id number].[id number] 6150 Information not available 04/15/2022 Have There Been Any Changes To Your Family Or Social Situation? No MIGRATION.[id number] 1173 Information not available 04/15/2022 Are There Any Guns Present In Your Home? No MIGRATION.[id number] 6397 Information not available 04/15/2022 Do You Use Insect Repellent Routinely? No [id number].[id number] 7772 Information not available 04/15/2022 What Is Your Relationship Status? [id number].784085 [id number] Information not available 04/15/2022 Do You Use Your Seat Belt Or Car Seat Routinely? Yes [id number].[id number] 2917 Information not available 04/15/2022 Do You Have Smoke And Carbon Monoxide Detectors In Your Home? Yes MIGRATION.797504 2150 Information not available 04/15/2022 Do You Or Have You Ever Used Smokeless Tobacco? Never Used Smokeless Tobacco MIGRATION.771752 9218 Information not available 04/15/2022 How Much Tobacco Do You Smoke? No MIGRATION.739233 5190 Information not available 04/15/2022 Do You Use Any Illicit Or Recreational Drugs? No MIGRATION.838131 4271 Information not available 04/15/2022 Do You Use Sunscreen Routinely? Yes MIGRATION.922432 4298 Information not available 04/15/2022 How Many Years Have You Smoked Tobacco? 0 MIGRATION.851547 8513 Information not available 04/15/2022 Have You Recently Traveled Abroad? No MIGRATION.218001 6891 Information not available 04/15/2022 Do You Have Any Dietary Restrictions? No MIGRATION.[id number] 2486 Information not available 04/15/2022 Do You Or Have You Ever Used Any Other Forms Of Tobacco Or Nicotine? No MIGRATION.678308 2664 Information not available 04/15/2022 Sex: Unknown Functional Status Question Answer Note LastModified by Organizat ion Details LastModified Time What is your exercise level? Moderate [id number] Information not available 04/15/2022 Mental Status None recorded. Family History Relationship Description Onset Age of this Age Resolved Age Notes LastModified by Organization Details LastModified Time Mother Hyperlipidem ia [id number] Not available 04/15/2022 21:53:09 Maternal Grandmother Malignant tumor of colon [id number] [id number] Not available 04/15/2022 21:53:09 Maternal Grandfather Myocardial infarction MIGRATION.330 [id number] Not available 04/15/2022 21:53:09 Paternal Grandfather Dementia [id number].[id number] Not available 04/15/2022 21:53:09 Medical History Condition Response ANXIETY DISORDER Y Gynecological History Statement/Question Response Menses Monthly Y How many live births 2 Abnormal Pap Y Date of Last Pap 06/26/2019 Date of Last Mammogram 10/09/2019 Current Control Method Partner Vas ectomy Sexually Active? Y Obstetrics History GPAL:G 2 P 0 0 0 2 Type Value Living 2 Total 2 Immunizations Vaccine Type Date Status Note Provider Nam e and Address Organization Details Recorded Time COVID-19, mRNA, LNP-S, PF, 30 mcg/0.3 mL dose 1 completed Not Available [facility] 04/15/2022 21:54:25 Influenza, split virus, quadrivalent, preservative 9 completed Not Available [facility] 04/15/2022 21:54:25 Past Encounters Encounter ID Performer Location Encounter Start Date Encounter Closed Date Diagnosis/Indication Diagnosis SNOMED-CT Code Diagnosis ICD10 Code Diagnosis Note [id number] [facility] [address] [place] [address] 06/04/2020 00:00:00 06/14/2020 21:03:27 [id number] [facility] [address] [place] [address] 12/03/2020 00:00:00 12/15/2020 14:31:32 [id number] [facility] [address] [place] [address] 09/01/2021 00:00:00 09/14/2021 00:50:26 [id number] [facility] [address] [place] [address] 03/04/2022 00:00:00 03/17/2022 20:30:41 [id number] PATRICIO Coley [facility] [address] [place] [address] 09/02/2022 10:22:14 09/02/2022 11:03:12 Cholesterol screening 242089365 Z13.220 next labs are due in January. 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 also seeing therapist now. [id number] PATRICIO Coley [facility] [address] [place] [address] 01/05/2023 10:27:29 01/05/2023 10:51:53 Acute maxillary sinusitis 92348752 J01.00 pt has failed other abx therapy from urgent care and OTC meds. start MDP and levaquin 500mg daily. Health Concerns Section Related Observation LastModified by Organization Detai ls LastModified Time None Recorded Concern Status LastModified by Organization Details LastModified Time None Recorded Advance Directives Directive None Recorded Payers Encounter Date Sequence Insurance Name Policy Number Policy Rutledge Covered Member ID Rutledge Member ID Guarantor Name 09/02/2022 1 [facility] [id number] Nahid Naqvi [id number] Jaci Naqvi 01/05/2023 1 [facility] [id number] Nahid Naqvi [id number] Jaci Naqvi Notes Date Note Type Note Provider Name and Address Organization Details Recorded Time 12/03/2020 text/html Anxiety/Depressi onR eported bypatient.Severity: denies suicidal ideations; able to maintain relationships; does not interfere with activities of daily living Duration:symptoms lasting over 2 weeks Onset/Timing:still present Context:no major life stressors Modifying Factors:medications as directed Associated Symptoms:denies homicidal ideations; no significant weight gain; no significant weight loss; no visual/auditory hallucinations; no delusions; no shortness of breath; mood good; no anxiety; no crying spells; no panic; no isolation; sleeping well; appetite good; energy good; no apathy; maintaining functionality Not Available [facility] [employer] [facility] 12/15/2020 14:31:32 09/01/2021 text/html Anxiety/Depressi onR eported bypatient.Quality:D oesnt matter time of day Severity:denies suicidal ideations; able to maintain relationships; does not interfere with activities of daily living Duration:symptoms lasting over 2 weeks Onset/Timing:still present Context:no major life stressors Modifying Factors:medications as directed Associated Symptoms:denies homicidal ideations; no significant weight gain; no significant weight loss; no visual/auditory hallucinations; no delusions; no shortness of breath; mood good; no anxiety; no crying spells; no panic; no isolation; sleeping well; appetite good; energy good; no apathy; maintaining functionality Not Available [facility] [employer] [facility] 09/14/2021 00:50:26 03/04/2022 text/html Anxiety/Depressi onR eported bypatient.Quality:s ymptoms worse in the evening;symptoms worse during the day Severity:denies suicidal ideations; able to maintain relationships; does not interfere with activities of daily living Duration:symptoms lasting over 2 weeks Onset/Timing:still present Context:no major life stressors Modifying Factors:medications as directed Associated Symptoms:denies homicidal ideations; no significant weight gain; no significant weight loss; no visual/auditory hallucinations; no delusions; no shortness of breath; mood good; no anxiety; no crying spells; no panic; no isolation; sleeping well; appetite good; energy good; no apathy; maintaining functionality Not Available [facility] [employer] [facility] 03/17/2022 20:30:41 09/02/2022 text/html Anxiety/Depressi onR eported bypatient.Quality:d oes not matter time of day Severity:denies suicidal ideations; able to maintain relationships; does not interfere with activities of daily living Context:no major life stressors Associated Symptoms:denies homicidal ideations; no significant weight gain; no significant weight loss; no visual/auditory hallucinations; no delusions; no shortness of breathNotes:stable on clonazepam and wellbutrin 6 mo f/u PATRICIO Coley [address] [address], [place], [address], [employer] [facility] 09/13/2022 17:50:03 01/05/2023 text/html Allergy/sinusiti sRe ported bypatient.Onset/John ing:recurring Location:sore throat Quality:worsening;h oarseness;congested Duration:continuous Associated Symptoms:nasal discharge PATRICIO Coley [address] [address], [place], [address], [employer] [facility] 01/07/2023 23:49:24 OBGyn Episode No OBEpisode recorded.
--- OUTSIDE RECORDS SUMMARY | 2024-06-08 01:39 | XMS_ITS | Encounter Summary ---
Author Organization [facility] Address [address] [place] [address] Phone Care Team Providers Care Silk Opener Name Role Phone Amandeep Brown MD Primary Care Provider [phone] Encounter Details Date Type Department Care Team (Late st Contact Info) Description 04/12/2017 Orders Only [facility] ProviderDain MD [address] [place] [id number] Social History Tobacco Use Types Packs/Day Years Used Date Smoking Tobacco: Never Smokeless Tobacco: Never Alcohol Use Standard Drinks/Week Comments No 0 (1 standard drink = 0.6 oz pur e alcohol) Comments No Sex and Gender Information Value Date Recorded Sex Assigned at Not on file Legal Sex Female 11:29 AM [employer] [facility] Gender Identity Not on file Sexual Orientation Not on file documented as of this encounter Plan of Treatment Not on file documented as of this encounter Procedures Procedure Name Priority Date/Time Associated Diagnosis Comments CYTOLOGY 04/12/2017 12:00 AM [facility] documented in this encounter Results * CYTOLOGY (04/12/2017 12:00 AM TERMINAL [facility]) Narrative 04/12/2017 12:00 AM [employer] [facility] Ordered by an unspecified provider. Historical Provider LAB CYTOLOGY ORDERABLES F inal Result documented in this encounter Visit Diagnoses Not on filedocumented in this encounter Care Teams Silk Opener Relationship Specialty Start Date End Date Amandeep Brown MD [address] [place] [address] PCP - General 05/15/16 documented as of this encounter
--- NOTE | 2024-06-08 09:53 | P.HP_ITS ---
H&P: HPI History of Present Illness Date/Time: 06/08/24 09:53 Chief Complaint: abnormal uterine bleeding Narrative: 44-year-old female who presents for hysteroscopy, D&C, endometrial ablation. Partner has had a vasectomy in the past for contraception. Patient has been dealing with heavy menses for some time. Patient tried IUD without improvement in bleeding. Review of Systems Cardiovascular: Cardiovascular: Denies chest pain, Denies leg edema, Denies palpitations, Denies dyspnea and Denies dyspnea on exertion Respiratory: Respiratory: Denies cough, Denies dyspnea and Denies dyspnea on exertion Gastrointestinal: Gastrointestinal: Denies abdominal pain, Denies constipation, Denies diarrhea, Denies nausea and Denies vomiting Genitourinary: Genitourinary: Denies hematuria, Denies urinary frequency, Denies dysuria, Denies pelvic pain, Denies urinary incontinence and Denies vaginal discharge Neurologic: Reports system reviewed and no additional complaints, except as documented Psychiatric: Psychiatric: Reports no additional psychiatric complaints Endocrine: Endocrine: Denies palpitations PMF Past Medical History Medical History (Updated 05/16/24 @ 14:09 by Hardeep Epstein MD) Encounter for removal of intrauterine contraceptive device Depression Screening for breast cancer Anxiety (11/22/17) Surgical History Surgical History (Updated 04/20/24 @ 15:46 by Sherice Conley MA) H/O gynecological procedure Mirena IUD insertion 07/2021 H/O nasal septoplasty H/O LEEP (02/16/00) History of rhinoplasty 2006 Family History Family History Grandparent Diabetes mellitus Hypertension Carcinoma of colon Family history of coronary artery disease Dementia paternal grandfather Mother Family history of hypercholesterolemia Social History Social History Smoking status: Never smoker Second hand tobacco smoke exposure: No Alcohol intake: never Substance use: never Substance use type: does not use Do You Feel Safe in your Home?: Yes Lack of Transportation: No Lack of Food: Never True Current Housing: I Have Housing Concerned About Future Housing: No Difficulty Paying Gas/Electric Bills: No Difficulty Paying for Meds: No Currently Unemployed: No Education: High School Diploma/GED Difficulty w/ Childcare or Family Care: No Living arrangements: with family Additional living arrangements comments: and children Occupation/Education: occupation 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 Gender identity (if verbalized by the patient): Female Sexual Orientation (if Verbalized by the Patient): Straight or Heterosexual Spiritual care concerns: No Meds Home Medications and Allergies Home Medications ?Medication ?Instructions ?Recorded ?Confirmed ?Type clonazepam 0.5 mg tablet 0.5 mg PO TID #90 tabs 06/01/19 05/31/24 Rx valacyclovir 500 mg tablet 500 mg PO DAILY #90 tabs 02/03/21 05/31/24 Rx loratadine 10 mg tablet (Claritin) 10 mg PO DAILY 01/27/23 05/31/24 History cariprazine 1.5 mg capsule 1.5 mg PO DAILY 03/26/23 05/31/24 History (Vraylar) bupropion HCl 300 mg 24 hr tablet, 300 mg PO DAILY 05/31/24 05/31/24 History extended release tirzepatide (weight loss) 10 10 mg subcut WEEKLY 05/31/24 05/31/24 History mg/0.5 mL subcutaneous solution (Zepbound) Allergies Allergy/AdvReac Type Severity Reaction Status Date / Time cefaclor Allergy Unknown Unknown Verified 05/31/24 09:11 sulfamethizole Allergy Unknown Skin Verified 05/31/24 09:11 irritation trimethoprim Allergy Unknown Skin Verified 05/31/24 09:11 irritation Exam Const: General: no acute distress Eyes: EOM: EOMs intact bilaterally Neck: Neck: supple Thyroid: thyroid normal Chest: Breast/axilla inspection: normal inspection of the breasts Breast/axilla palpation: normal palpation of the breasts, normal palpation of the axillae and no axillary lymphadenopathy Resp: Effort & Inspection: normal respiratory effort Auscultation: clear to auscultation bilaterally Cardio: Rate: regular rate Rhythm: regular rhythm GI: Inspection: non-distended GI Palp: Yes Soft to palpation, No Tenderness to palpation present (GI) and No Guarding due to palpation present (GI) Auscultation: normal bowel sounds : General: No bladder normal to palpation External Female Exam: normal external appearance Speculum Exam - Vagina: normal vaginal discharge and No vaginal bleeding Speculum Exam - Cervix: nontender Bimanual exam- vagina & uterus: No bladder normal to palpation and No Cervical tenderness present OB/external & speculum: No vaginal bleeding Skin: General skin exam: normal color and no rashes or lesions noted Neuro: Cognition (Neuro): normal cognition Speech: normal speech Extrem: General: normal to inspection and no edema Psych: Mental Status: mental status grossly normal Affect: normal affect Assessment and Plan Assessment and plan (1) Abnormal uterine bleeding (AUB): Code(s): N93.9 - Abnormal uterine and vaginal bleeding, unspecified Status: Acute Assessment and Plan: patient reports heavy menses and breakthrough bleeding with IUD IUD was found to be in the lower uterine segment Patient's has had vasectomy, patient does not desire Patient had IUD strictly to control heavy bleeding Patient would like to pursue endometrial ablation Procedure discussed at length. Risks and benefits reviewed Will plan to proceed with hysteroscopy, D&C, endometrial ablation
[2024-06-08 09:55] VITALS: BP 123/72; PULSE 81; RESP 18; TEMP 37.1; O2SAT 100
[2024-06-08] MEDS: ACETAMINOPHEN 500 MG TABLET 1000 MG PO (10:15)
[2024-06-08] MEDS: LACTATED RINGERS 1,000 ML 30 ML IV CONT (10:20)
[2024-06-08 10:35] LABS: BEDSIDEPREGUCG Negative (Negative)
--- NOTE | 2024-06-08 10:55 | WPDANESEPPF ---
Anes - Initial Pre Proc Eval Procedure: Operation Date: 06/08/24 12:00 Proposed Procedures p Hysteroscopy Dilation and Curettage with Delma Endometrial Ablation - Hardeep Epstein MD Date/Time: 06/08/24 10:55 Surgeon: Hardeep Epstein MD Pre Op Diagnosis: abnormal uterine bleeding Patient Data Age: 44 Gender: F Height: 1.65 m Weight: 65.1 kg Last Vital Signs Temp 37.1 C 06/08/24 09:55 Pulse 81 06/08/24 09:55 Resp 18 06/08/24 09:55 BP 123/72 06/08/24 09:55 Pulse Ox 100 06/08/24 09:55 O2 Del Method Room Air 06/08/24 09:55 Allergies Allergy/AdvReac Type Severity Reaction Status Date / Time cefaclor Allergy Unknown Unknown Verified 06/08/24 10:29 sulfamethizole Allergy Unknown Skin Verified 06/08/24 10:29 irritation trimethoprim Allergy Unknown Skin Verified 06/08/24 10:29 irritation Home Medications ?Medication ?Instructions ?Recorded ?Confirmed ?Type clonazepam 0.5 mg tablet 0.5 mg PO TID #90 tabs 06/01/19 06/08/24 Rx valacyclovir 500 mg tablet 500 mg PO DAILY #90 tabs 02/03/21 06/08/24 Rx loratadine 10 mg tablet (Claritin) 10 mg PO DAILY 01/27/23 06/08/24 History cariprazine 1.5 mg capsule 1.5 mg PO DAILY 03/26/23 06/08/24 History (Vraylar) bupropion HCl 300 mg 24 hr tablet, 300 mg PO DAILY 05/31/24 06/08/24 History extended release tirzepatide (weight loss) 10 10 mg subcut WEEKLY 05/31/24 06/08/24 History mg/0.5 mL subcutaneous solution (Zepbound) Laboratory Tests 06/08/24 10:10 POC Urine HCG, Qual Negative (Negative) Patient hx anesthesia problems: none Family hx anesthesia problems: none Results Review: All pre-operative results and documents have been reviewed as part of the pre-operative evaluation. [facility] Past Medical History Medical History Encounter for removal of intrauterine contraceptive device Depression Screening for breast cancer Anxiety (10/08/18) Surgical History Surgical History H/O gynecological procedure Mirena IUD insertion 07/2021 H/O nasal septoplasty H/O LEEP (02/16/00) History of rhinoplasty 2006 Family History Family History Grandparent Diabetes mellitus Hypertension Carcinoma of colon Family history of coronary artery disease Dementia paternal grandfather Mother Family history of hypercholesterolemia Social History Social History Smoking status: Never smoker Second hand tobacco smoke exposure: No Alcohol intake: never Substance use: never Substance use type: does not use Do You Feel Safe in your Home?: Yes Lack of Transportation: No Lack of Food: Never True Current Housing: I Have Housing Concerned About Future Housing: No Difficulty Paying Gas/Electric Bills: No Difficulty Paying for Meds: No Currently Unemployed: No Education: High School Diploma/GED Difficulty w/ Childcare or Family Care: No Living arrangements: with family Additional living arrangements comments: and children Occupation/Education: occupation 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 Gender identity (if verbalized by the patient): Female Sexual Orientation (if Verbalized by the Patient): Straight or Heterosexual Spiritual care concerns: No Anes - Eval Final PreProcedure Day of Procedure 06/08/24 10:55 Patient weight: normal Heart: regular rate and rhythm Lungs: clear to auscultation Airway: Mallampati scale class II Neurological: alert and oriented Last oral intake: >/= 8 hours ASA classification: II Emergent: no Anesthetic plan: proceed Anesthesia type and monitoring: general GIVS and standard monitoring Results Review: All pre-operative results and documents have been reviewed as part of the pre-operative evaluation. Informed Consent: The patient's anesthetic plan and its attendant risks and benefits were discussed with the patient/family/POA. Questions were solicited and answers provided to the satisfaction of the patient/family/POA.
--- NOTE | 2024-06-08 11:30 | WPDHPUPDATE1 ---
History and Physical Update Update Date/Time: 06/08/24 11:30 History and Physical has been reviewed, including an updated exam of the patient. There are NO changes in the patient's condition. Risks, benefits, and alternatives have been discussed and questions answered. Patient agrees to proceed with procedure.
--- NOTE | 2024-06-08 12:26 | P.OP_ITS ---
Procedure Note - Detailed Date of Procedure 06/08/24 Pre-op Diagnosis abnormal uterine bleeding Post-op Diagnosis Same Procedure Performed hysteroscopy dilation & curettage endometrial ablation Surgeon Hardeep Epstein MD Anesthesia General Indications abnormal uterine bleeding Findings normal appearing intrauterine cavity. Normal tubal ostia bilaterally Description of Procedure Jaci Naqvi presents for the above procedure. She was counseled as to the indications, risks, benefits, and alternatives to surgery, with the risks including bleeding, infection, damage to surrounding organs, VTE, and complications of anesthesia. Her verbal and written consent was obtained. PROCEDURE: The patient was taken to the OR and general anesthesia induced. She was prepped and draped in Mann stirrups with support of the back and bilateral lower extremities. I/O catheterization performed of the bladder. The above findings were noted. A single tooth tenaculum was placed on the anterior lip of the cervix. The uterus sounded to 8 cm. The cervix was dilated with sequential Oralia dilators. Hysteroscopy, using a normal saline medium, was performed and showed the above findings. Sharp uterine curettage was then per formed and tissue placed on Telfa. The Delma device was set to a depth of 5 cm. The device was inserted into the uterus and deployed. Good fit was reassured by the device indicator. The cervical balloon was insufflated to ensure a good seal. Uterine integrity test was performed by the Delma device and was successful. The device was then activated. The entire ablation procedure lasted 120 seconds. The cervical balloon was desufflated and the device was removed from the uterus. The hysteroscope was re-introduced to ensure adequate tissue ablation. The tenaculum was removed and hemostasis was observed. The patient tolerated the procedure well. Sponge, lap, and needle counts were correct. The patient had SCD's on throughout the case for VTE prophylaxis. The patient was taken to the recovery room in stable condition. Estimated Blood Loss 5 Drains No Packing No Pathology Yes (endometrial curettings ) Complications No immediate complications Condition Stable Disposition PACU [facility] Billing Surgery - Charge Forward: Surgery Billing
[2024-06-08 12:32] VITALS: BP 101/60; PULSE 68; RESP 12; O2SAT 99
[2024-06-08] MEDS: oxyCODONE HCL (*CRX) 5 MG TAB IR PO (12:58)
[2024-06-08 13:00] VITALS: BP 127/74; PULSE 60; RESP 16
== END 2024-06-08 13:24 | disposition home or self-care (01) ==
PROVIDERS: PCP Physician Assistant; Visit Provider Student in an Organized Health Care Education/Training Program
PROC: 0U5B8ZZ Destruction of Endometrium, Via Natural or Artificial Opening Endoscopic (ICD-10-PCS; CPT 58563; principal; 2024-06-08 12:00)
DX: N93.9 Abnormal uterine and vaginal bleeding, unspecified (principal)
CPT/HCPCS: 58563; 88305; A9270; J1100; J2003; J2250; J2405; J2704; J3010; J7120